=== PATIENT | female | born 1985 | race Caucasian/White ===

== ENCOUNTER 2017-06-15 15:48 | Emergency (ER) | payer BC, SELFPAY ==
[2017-06-15 17:20] VITALS: BP 128/80; PULSE 85; RESP 20; TEMP 36.8; O2SAT 100; BMI 24.1
[2017-06-15 17:31] LABS: UTC Strep Screen (Rapid) Negative (Negative)
--- NOTE | 2017-06-15 17:36 | HMH.EDUTC ---
[facility] – [place] Disposition Clinical Impression: Bilateral otitis media Qualifiers: Otitis media type: suppurative Chronicity: acute Recurrence: not specified as recurrent Spontaneous tympanic membrane rupture: without spontaneous rupture Qualified Code(s): H66.003 - Acute suppurative otitis media without spontaneous rupture of ear drum, bilateral Disposition: Home, Self-Care Condition on Discharge: Good Instructions: DI for Otitis Media (Middle Ear Infection)-Child Prescriptions: Amoxicillin/Potassium Clav [Augmentin 875-125 Tablet] 1 tab PO Q12H #20 tab Referrals: Maximino Camp MD [Primary Care Provider] - Time of Disposition: 17:42 Medical Decision Making - Medical Records Medical records reviewed: Yes: I reviewed the patient's medical records. Vital Signs: 06/15/17 17:20 Temperature 98.2 F Temperature Source Temporal Artery Scan Pulse Rate [Right Brachial] 85 Respiratory Rate 20 Blood Pressure [Right Arm] 128/80 Blood Pressure Mean [Right Arm] 96 Blood Pressure Source [Right Arm] Automatic Cuff Blood Pressure Position [Right Arm] Sitting 02 Sat by Pulse Oximetry 100 Oxygen Delivery Method Room Air - Lab Data Lab results reviewed: Yes: I reviewed the patient's lab results. Lab Results 06/15/17 17:26: Strep Scn Rapid Clinic Negative Orders (Tests/Meds): ORDERS Category Date Time Status Strep Screen Confirmation Stat Micro 06/15/17 17:26 Received - Ulisses Inquiry Pt receiving controlled substance: No [facility] [place] HPI - General Stated complaint: Sore throat, congestion, coughing Time Seen by Provider: 06/15/17 17:30 Mode of Arrival: Ambulatory Source of Information: Patient Limitations: No Limitations Description of Symptoms (Recalled from Triage Doc. by RN): C/O SORE THROAT X2 DAYS HEENT Symptoms (Recalled from RN notes): Yes (SORE THROAT) Resp Symptoms (Recalled from RN notes): No Skin Symptoms (Recalled from RN notes): No MS Symptoms (Recalled from RN notes): No Functional Status (Recalled from RN notes): N/A - History of Present Illness Provider Complaint: Sore throat X 2 days. No fever. Some ear pain and sinus congestion. No vomiting or diarrhea. Onset (ago): day(s) (2) Location: head Associated symptoms: denies other symptoms - Related Data Previous Rx's Medication Instructions Recorded Amoxicillin/Potassium Clav 1 tab PO Q12H #20 tab 06/15/17 [Augmentin 875-125 Tablet] Allergies Allergy/AdvReac Type Severity Reaction Status Date / Time INGREDIENT: NO KNOWN - NO Allergy Unknown Uncoded 04/23/17 14:50 KNOWN DRUG ALLERGY - Worker's Comp Is this a Worker's Comp case?: No [facility] History I have reviewed the patient's past medical history: Yes Medical History: Denies:: Cancer, Diabetes Mellitus Type 1, Diabetes Mellitus Type 2, MRSA Amputation: No Fractures: No - *Social History Smoking Status: Never smoker Alcohol Intake: never - Psychiatric History Expresses thoughts of harming self/others: None Suicide Plan Description: No Plan ROS Obtained: Yes All systems reviewed & no additional complaints - ENT Ears, Nose, Mouth, and Throat: Reports otalgia, Reports nasal congestion, Reports sore throat Physical Exam - General General appearance: alert, in no apparent distress - Head Head exam: atraumatic, normocephalic, normal inspection - Eye Eye exam: Present: normal appearance, PERRL, EOMI - ENT ENT exam: Present: normal exam, normal oropharynx, mucous membranes moist, normal external ear exam - Expanded ENT Exam TM/Canal exam: Bilateral TM: erythema, bulging - Neck Neck exam: Present: normal inspection, full ROM, trachea midline. Absent: meningismus, lymphadenopathy - Chest Chest inspection: Present: normal inspection, symmetric chest wall rise. Absent: tenderness - Respiratory Respiratory exam: Present: normal lung sounds bilaterally. Absent: respiratory distress - Cardiovascular Cardiovascular exam: Present: re
--- NOTE | 2017-06-15 17:40 | ED_ITS ---
[facility] [place] Clinical Impression: Bilateral otitis media Qualifiers: Otitis media type: suppurative Chronicity: acute Recurrence: not specified as recurrent Spontaneous tympanic membrane rupture: without spontaneous rupture Qualified Code(s): H66.003 - Acute suppurative otitis media without spontaneous rupture of ear drum, bilateral Disposition: Home, Self-Care Condition on Discharge: Good Instructions: DI for Otitis Media (Middle Ear Infection)-Child Prescriptions: Amoxicillin/Potassium Clav [Augmentin 875-125 Tablet] 1 tab PO Q12H #20 tab Referrals: Maximino Camp MD [Primary Care Provider] - Time of Disposition: 17:42 Medical Decision Making - Medical Records Medical records reviewed: Yes: I reviewed the patient's medical records. Vital Signs: 06/15/17 17:20 Temperature 98.2 F Temperature Source Temporal Artery Scan Pulse Rate [Right Brachial] 85 Respiratory Rate 20 Blood Pressure [Right Arm] 128/80 Blood Pressure Mean [Right Arm] 96 Blood Pressure Source [Right Arm] Automatic Cuff Blood Pressure Position [Right Arm] Sitting 02 Sat by Pulse Oximetry 100 Oxygen Delivery Method Room Air - Lab Data Lab results reviewed: Yes: I reviewed the patient's lab results. Lab Results 06/15/17 17:26: Strep Scn Rapid Clinic Negative Orders (Tests/Meds): ORDERS Category Date Time Status Strep Screen Confirmation Stat Micro 06/15/17 17:26 Received - Ulisses Inquiry Pt receiving controlled substance: No [facility] [place] - General Stated complaint: Sore throat, congestion, coughing Time Seen by Provider: 06/15/17 17:30 Mode of Arrival: Ambulatory Source of Information: Patient Limitations: No Limitations Description of Symptoms (Recalled from Triage Doc. by RN): C/O SORE THROAT X2 DAYS HEENT Symptoms (Recalled from RN notes): Yes (SORE THROAT) Resp Symptoms (Recalled from RN notes): No Skin Symptoms (Recalled from RN notes): No MS Symptoms (Recalled from RN notes): No Functional Status (Recalled from RN notes): N/A - History of Present Illness Provider Complaint: Sore throat X 2 days. No fever. Some ear pain and sinus congestion. No vomiting or diarrhea. Onset (ago): day(s) (2) Location: head Associated symptoms: denies other symptoms - Related Data Previous Rx's Medication Instructions Recorded Amoxicillin/Potassium Clav 1 tab PO Q12H #20 tab 06/15/17 [Augmentin 875-125 Tablet] Allergies Allergy/AdvReac Type Severity Reaction Status Date / Time INGREDIENT: NO KNOWN - NO Allergy Unknown Uncoded 04/23/17 14:50 KNOWN DRUG ALLERGY - Worker's Comp Is this a Worker's Comp case?: No [facility] History I have reviewed the patient's past medical history: Yes Medical History: Denies:: Cancer, Diabetes Mellitus Type 1, Diabetes Mellitus Type 2, MRSA Amputation: No Fractures: No - *Social History Smoking Status: Never smoker Alcohol Intake: never - Psychiatric History Expresses thoughts of harming self/others: None Suicide Plan Description: No Plan ROS Obtained: Yes All systems reviewed & no additional complaints - ENT Ears, Nose, Mouth, and Throat: Reports otalgia, Reports nasal congestion, Reports sore throat Physical Exam - General General appearance: alert, in no apparent distre
[2017-06-15 17:59] VITALS: BP 124/82; PULSE 79; RESP 18; TEMP 36.9; O2SAT 98
== END 2017-06-15 18:00 | disposition home or self-care (01) ==
PROVIDERS: Emergency Provider Physician Assistant; PCP Family Medicine
DX: H66.003 Acute suppurative otitis media without spontaneous rupture of ear drum, bilateral (principal)
CPT/HCPCS: 87880; 99202

== ENCOUNTER → 2018-02-03 20:12 | Outpatient (REF) | payer BC, SELFPAY | LOC: LAB 20:12 | PROVIDERS: Visit Provider Nurse Practitioner Family | DX: J02.9 Acute pharyngitis, unspecified (principal) ==

== ENCOUNTER → 2018-11-10 13:54 | Outpatient (CLI) | payer BC, SELFPAY | PROVIDERS: PCP Emergency Medicine; Visit Provider Emergency Medicine | DX: R00.2 Palpitations (principal) | CPT/HCPCS: 93225; 93226 ==

== ENCOUNTER → 2019-02-06 10:51 | Outpatient (CLI) | payer BC, SELFPAY ==
[2019-02-06 14:17] LABS: Basophils % 0.5 % (0.1-2.0); Eosinophils % 0.6 % (0.1-12.0); Hematocrit 39.8 % (37.0-47.0); Lymphocytes # 1.6 K/mm3 (0.7-4.5); Lymphocytes % 28.6 % (10-50); Mean Corpuscular HGB Conc 32.7 g/dL (31.8-35.4); Mean Corpuscular Hemoglobin 28.5 pg (27.0-31.2); Mean Corpuscular Volume 87.1 fl (81-99); Monocytes # 0.3 K/mm3 (0.1-1.0); Monocytes % 5.7 % (1.7-9.3); Neutrophils # 3.6 K/mm3 (1.8-7.8); Neutrophils % 64.6 % (37.0-80.0); Platelet Count 208 K/mm3 (142-424); Red Blood Count 4.57 M/mm3 (4.20-5.40); Red Cell Distribution Width 12.5 % (11.5-17.5); White Blood Count 5.5 K/mm3 (4.8-10.8)
[2019-02-07 08:13] LABS: HIV Screen 4th Generation wRfx Non Reactive (Non Reactive); Rapid Plasma Reagin Ab Titer Non Reactive (NonRea<1:1)
[2019-02-07 12:32] LABS: Hepatitis B Surface Antigen Negative (Negative); Hepatitis C Antibody <0.1 s/co ratio (0.0-0.9); Rubella Antibodies, IgG 1.17 index (Immune >0.99)
== END ==
PROVIDERS: Visit Provider Nurse Practitioner Obstetrics & Gynecology
DX: Z34.90 Encounter for supervision of normal pregnancy, unspecified, unspecified trimester (principal)
CPT/HCPCS: 36415; 85025; 86592; 86703; 86762; 86850; 87340; 87380; G0432

== ENCOUNTER → 2019-02-13 14:51 | Outpatient (CLI) | payer BC, SELFPAY ==
--- NOTE | 2019-02-13 14:52 | US_ITS ---
PROCEDURE: US OB TRANSVAGINAL CLINICAL INDICATION: US OB TV for DATES The the the COMPARISON: PTV US PELVIS-TRANSVAGINAL ONLY from 10/24/2016 FINDINGS: There is an intrauterine gestational sac present with a yolk sac noted. A pole is demonstrated with a crown-rump length of 0.58 cm correlating to gestational age of 6 weeks and 3 days. heart tones are present within FHR 117 beats per minute. The left adnexa is unremarkable. There is a 1 cm corpus luteum cyst on the right IMPRESSION: Live intrauterine gestation with an average ultrasound age of 6 weeks and 2 days. Estimated due date by Ultrasound is 10/07/2019 Dictated by: Curtis Subramanian MD 02/13/2019 17:55 Electronically signed by Curtis Subramanian MD in [place] 02/13/2019 17:55
== END ==
PROVIDERS: PCP Nurse Practitioner Obstetrics & Gynecology; Visit Provider Nurse Practitioner Obstetrics & Gynecology
DX: O26.841 Uterine size-date discrepancy, first trimester (principal)
CPT/HCPCS: 76817

== ENCOUNTER → 2019-05-22 14:38 | Outpatient (CLI) | payer BC, SELFPAY ==
--- NOTE | 2019-05-22 14:38 | US_ITS ---
PROCEDURE: US OB /MATERNAL DETAIL CLINICAL INDICATION: US OB Complete COMPARISON: US OB TRANSVAGINAL from 02/13/2019 FINDINGS: Single viable intrauterine gestation. Cephalic position. Placenta: Posteriorplacenta grade 1. The placenta is low lying. There is average amount fluid. The cervix appears satisfactory. Closed and measuring 3.5 cm in length. Complete survey performed and was unremarkable on the submitted images as in PACS. No discrete anomalies identified on survey imaging by technologist. Active fetus. Three-vessel cord with satisfactory umbilical cord insertion. 4- chamber heart noted. Survey of brain & ventricles Unremarkable. Face and neck survey unremarkable. Diaphragm and chest views unremarkable. Abdomen: Both kidneys noted and unremarkable. Stomach noted and satisfactory. Spine: Survey of the spine satisfactory with no anomalies identified nor imaged. Both arms and legs noted. Amniotic Fluid: Adequate. Maternal adnexa: No significant findings. Measurements: Average ultrasound age 21weeks. Gestational Age 21weeks Estimated due date by ultrasound age 0510/02/2019. Estimated weight 416g BPD = 20weeks 3days OFD = 21 weeks 2 days HC = 20weeks 2days AC = 21weeks 3days FL = 21weeks 6days Growth Percentile= 93% Heart Rate = 146bpm Cerebellum = 20weeks 2days Humerus = 21weeks HC/AC is 1.09 CI is 0.75 FL/BPD is 0.77 FL/AC is 0.23 IMPRESSION: There is a single live fetus present which is in cephalic presentation with an average ultrasound age of 21 weeks. All parameters correlate with no obvious anomalies. Please see above for detail. The placenta is posterior and low lying. Dictated by: Curtis Subramanian MD 05/22/2019 17:46 Electronically signed by Curtis Subramanian MD in [place] 05/22/2019 17:46
== END ==
PROVIDERS: PCP Family Medicine; Visit Provider Nurse Practitioner Obstetrics & Gynecology
DX: Z36.0 Encounter for antenatal screening for chromosomal anomalies (principal)
CPT/HCPCS: 76811

== ENCOUNTER 2019-06-10 06:14 | Outpatient (CLI) | payer BC, SELFPAY ==
[2019-06-10 06:26] VITALS: BMI 31.1
[2019-06-10 06:32] VITALS: BP 118/69; PULSE 78; RESP 16; TEMP 36.3; O2SAT 98; BMI 31.1
[2019-06-10 07:08] LABS: Appearance,Urine CLEAR (Clear); Bilirubin,Urine Negative (Negative); Blood, Urine Negative (Negative); Color,Urine YELLOW (Yellow); Glucose,Urine (UA) Negative (Negative); Ketones,Urine Negative (Negative); Leukocyte Esterase,Urine Negative (Negative); Microscopic, Urine URINE MICROSCOPIC (MICROSCOPIC); Nitrate,Urine Negative (Negative); Protein,Urine Negative (Negative); Urobilinogen,Urine 0.2 EU/dl (0.2)
[2019-06-10 07:21] LABS: Amphetamine/Metha Screen,Urine Negative ng/mL (<1000); Barbiturates Screen,Urine Negative ng/mL (<200); Benzodiazepines Screen,Urine Negative ng/mL (<200); Cannabinoid Screen,Urine Negative ng/mL (<50); Cocaine Screen,Urine Negative ng/mL (<300); Methadone Screen,Urine Negative ng/mL (<300); Opiate Screen,Urine Negative ng/mL (<300); Phencyclidine Screen,Urine Negative ng/mL (<25)
[2019-06-10 07:33] LABS: Bacteria,Urine Trace /lpf
--- NOTE | 2019-06-10 09:22 | P.PN_ITS ---
Internal Medicine - PN: Subj *Date: 06/10/19 *Time: 09:22 Interval history: She has a 3-day history of nausea vomiting and dehydration. She began having some lower abdominal pain as well as back pain. She is 22 weeks . As result of that she came into labor and delivery. Exam Vital signs and Labs for Last 24 Hours: Temp Pulse Resp BP Pulse Ox 97.4 F L 78 16 118/69 98 06/10/19 06:32 06/10/19 06:32 06/10/19 06:32 06/10/19 06:32 06/10/19 06:32 Laboratory Results - last 24 hr 06/10/19 06:40: Urine Color Yellow, Urine Appearance Clear, Urine pH 7.0, Ur Specific Tate 1.010, Urine Protein Negative, Urine Glucose (UA) Negative, Urine Ketones Negative, Urine Blood Negative, Urine Nitrate Negative, Urine Bilirubin Negative, Urine Urobilinogen 0.2, Ur Leukocyte Esterase Negative, Urine RBC None, Urine WBC 3-5, Ur Squamous Epith Cells 5-10, Urine Bacteria Trace 06/10/19 06:40: Urine Opiates Screen Negative, Urine Methadone Screen Negative, Ur Barbituates Screen Negative, Ur Phencyclidine Scrn Negative, Ur Amphetamines Screen Negative, U Benzodiazepines Scrn Negative, Urine Cocaine Screen Negative, U Marijuana (THC) Screen Negative I & O for Last 24 hours: Intake & Output 06/07/19 06/08/19 06/09/19 06/10/19 11:59 11:59 11:59 11:59 Weight 192 lb 15.988 oz - Constitutional no acute distress - *Routine HEENT Exam Head: Present: normocephalic Eye: Present: EOMI, PERRL ENT: Present: mucous membranes moist Assessment and Plan (1) History of labor Current visit: Yes Status: Acute Category: Medical Code(s): Z87.51 - Personal history of pre-term labor (2) Nausea and vomiting Current visit: Yes Status: Acute Category: Medical Code(s): R11.2 - Nausea with vomiting, unspecified (3) Dehydration Current visit: Yes Status: Acute Category: Medical Code(s): E86.0 - Dehydration (4) labor Current visit: Yes Status: Acute Category: Medical Code(s): O60.00 - Pre term labor without delivery, unspecified trimester - Assessment and plan all Dx Assessment and Plan for all problems:: She has had no further episodes of vomiting or diarrhea. Her cramps have now settled. We did give her 1 dose of Brethine and she has received 2 L of fluid. Her cervix is long and closed. The nonstress test is reactive. We will plan to send her home this morning. She will continue to drink plenty of fluids.
== END 2019-06-10 09:30 | disposition home or self-care (01) ==
LOC: OBOUT 06:17 → OB 06:17
PROVIDERS: PCP Family Medicine; Visit Provider Nurse Practitioner Obstetrics & Gynecology
DX: O26.892 Other specified pregnancy related conditions, second trimester (principal); Z3A.23 23 weeks gestation of pregnancy; R25.2 Cramp and spasm; R42 Dizziness and giddiness
CPT/HCPCS: 59025; 80305; 81001; 96365; 96366; 96372; G0463

== ENCOUNTER → 2019-12-22 09:37 | Outpatient (CLI) | payer BC, SELFPAY ==
--- NOTE | 2019-12-22 09:37 | MR_ITS ---
PROCEDURE: MR HEAD/BRAIN WO/W CON CLINICAL INDICATION: possible underlying demyelinating disorder PINS AND NEEDLES FEELING ON LT SIDE OF FACE AND LT HAND. SENSATIONS MOVE TO SPOTS OF LT SIDE OF HEAD. [id number]. FRONTAL HEADACHE. DIZZINESS AND BLURRED VISION. Double inversion recovery images also performed COMPARISON: No exams were available for comparison TECHNIQUE: Routine multiplanar multi echo sequences are performed without and with gadolinium enhancement.16ML PROHANCE GIVEN. LOT: [id number] EXP: APR 2022 NO PRIOR. FINDINGS: No midline shift, mass effect, intracranial hemorrhage, or hydrocephalus is evident. The cerebellopontine angles, cerebellum, and brainstem have an unremarkable appearance. No evidence of acute infarction. The white matter has an unremarkable appearance. No enhancing lesions. No cortical lesions apparent on the DIR images. No mastoid effusion or sinus air-fluid level. IMPRESSION: No acute finding, negative MRI of the brain without and with contrast. Dictated by: Curtis Subramanian MD 12/28/2019 09:38 Curtis Subramanian MD in [place] 12/28/2019 09:38
== END ==
PROVIDERS: PCP Family Medicine; Visit Provider Specialist
DX: R51 Headache (principal); R20.0 Anesthesia of skin; R20.2 Paresthesia of skin; R20.8 Other disturbances of skin sensation; R53.1 Weakness
CPT/HCPCS: 70553; A9576

== ENCOUNTER 2020-02-28 17:38 | Emergency (ER) | payer BC, SELFPAY ==
[2020-02-28 18:13] VITALS: BP 127/85; PULSE 83; RESP 19; TEMP 37; O2SAT 99; BMI 28.0
--- NOTE | 2020-02-28 18:26 | HMH.EDUTC ---
[facility] – [place] Disposition Clinical Impression: Common cold virus, COVID-19 Disposition: Home, Self-Care Condition on Discharge: Good Instructions: Preventing the Spread of Coronavirus Discharge Instructions, DI for Common Cold Additional Instructions: No sign of a bacterial infection. Likely viral. Viruses can take 7-14 days to run their course. Nasal saline and bulb syringe or nose Gale to remove nasal drainage to help with nasal congestion. Hard to eat, drink, sleep with nasal congestion so important to keep this cleaned out. Monitor temp. Tylenol or Motrin as needed for pain or fever Encourage fluids, water, Gatorade, Powerade, Pedialyte if infant/toddler/child Warm salt water gargles Warm fluids Sore throat lozenges Sleep elevated Humidifier/vaporizer Your covid swab was sent, call back in 4-5 hours for results. self isolate until results are neg These results are typically sent to the primary care. Be sure you follow-up in 2-3 days if no improvement so we can review the results and treat if necessary Follow-up immediately for new or worsening symptoms or no noticeable improvement over the next 48-72 hours. Referrals: Adalberto Ennis MD [Primary Care Provider] - Time of Disposition: 18:30 Medical Decision Making - Ulisses Inquiry Pt receiving controlled substance: No Vital Signs: 02/28/20 18:13 Temperature 98.6 F Temperature Source Oral Pulse Rate [Right Brachial] 83 Respiratory Rate 19 Blood Pressure [Right Arm] 127/85 Blood Pressure Mean [Right Arm] 99 Blood Pressure Source [Right Arm] Automatic Cuff Blood Pressure Position [Right Arm] Sitting 02 Sat by Pulse Oximetry 99 Oxygen Delivery Method Room Air Orders (Tests/Meds): ORDERS Category Date Time Status Covid-19 Nasal PCR ([facility]) Routine Lab 02/28/20 18:10 Received [facility] [place] HPI - General Chief complaint: [facility] Stated complaint: cough runny nose head congestion Time Seen by Provider: 02/28/20 18:26 Mode of Arrival: Ambulatory Source of Information: Patient Limitations: No Limitations Description of Symptoms (Recalled from Triage Doc. by RN): PATIENT C/O COUGH AND RUNNY NOSE X 2 DAYS HEENT Symptoms (Recalled from RN notes): Yes Resp Symptoms (Recalled from RN notes): Yes Skin Symptoms (Recalled from RN notes): No MS Symptoms (Recalled from RN notes): No Functional Status (Recalled from RN notes): WNL - History of Present Illness Provider Complaint: 34 yr old female presents for runny nose and headache for 2 days and would like covid testing. 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 I have reviewed the patient's past medical history: Yes Medical History: Denies:: Cancer, Diabetes Mellitus Type 1, Diabetes Mellitus Type 2, Hypertension, MRSA Other Surgeries: Yes: No Previous Surgery, Cholecystectomy, Amputation: No Fractures: No Comment: wisdom teeth - Social History Smoking Status: Former smoker Alcohol Intake: never Substance Use Type: denies use Occupational Status: other Housing: house Household Members: spouse, children Family Hx:: Cancer, Diabetes, Coronary Artery Disease, Thyroid Disorder ROS Obtained: Yes Systems reviewed as appropriate & no additional complaints - Constitutional Constitutional: Reports system reviewed and no additional complaints, except as docu, Denies fever(s) - Eyes Eyes: Reports system reviewed and no additional complaints, except as docu, Denies c
[2020-02-28 18:33] VITALS: BP 127/85; PULSE 83; RESP 19; TEMP 37; O2SAT 99
== END 2020-02-28 18:35 | disposition home or self-care (01) ==
PROVIDERS: Emergency Provider Nurse Practitioner Family; PCP Family Medicine
DX: Z20.828 Contact with and (suspected) exposure to other viral communicable diseases (principal); R05 Cough; Z87.891 Personal history of nicotine dependence
CPT/HCPCS: 99201; U0003

== ENCOUNTER → 2020-08-26 11:48 | Outpatient (CLI) | payer BC, SELFPAY ==
--- NOTE | 2020-08-26 11:52 | CT_ITS ---
PROCEDURE: CT ABDOMEN PELVIS W CON CLINICAL INDICATION: RT LOWER QUAD ABD PAIN Right lower quadrant abdominal pain and cramping COMPARISON: No exams were available for comparison TECHNIQUE: IV Contrast: 75ML Isovue 370 Oral Contrast None Axial images obtained with sagittal and coronal reformats. All CT scans at the facility use one or more dose reduction, viz: automated exposure control, ma/kV adjustment per patient size (including targeted exams where dose is matched to indication, i.e. head), or iterative reconstruction technique. FINDINGS: LOWER THORAX: 6 mm noncalcified nodule right lower lobe posterior medially. Minimal thickening of the pericardium anteriorly suggesting small effusion. ABDOMEN & PELVIS: There are 3 small areas of decreased attenuation within the liver 4 mm left hepatic lobe series 3, image 15, 4 mm right hepatic lobe posteriorly series 3, image 32, and 4 mm series 3, image 40 right hepatic lobe. These are too small to categorize high. Stability may be confirmed with follow-up. There has been a prior cholecystectomy with biliary ectasia. Borderline splenomegaly at 13 cm. The pancreas and adrenal glands are unremarkable. No renal mass or calculi No intestinal obstruction or free air. The appendix has an unremarkable appearance. There is a mild amount of retained colonic feces. There is colonic diverticulosis but no evidence of diverticulitis. There is an IUD in place which appears to be in satisfactory position. The uterus appears somewhat bulky. There is somewhat unusual enhancement of the right ovary peripherally with no obvious adnexal mass. Small amount fluid is present in the pelvis. An 8 mm node is present in the right perirectal region. No acute bony findings IMPRESSION: 1. No evidence of appendicitis. No renal or ureteral calculi. 2. Mild amount of retained colonic feces with colonic diverticulosis but no evidence of diverticulitis. 3. Unusual mild peripheral enhancement of the right ovary. This is nonspecific. Differential diagnosis would include physiologic, missed torsion or secondary to underlying inflammatory/infectious changes. Dictated by: Curtis Subramanian MD 08/26/2020 13:00 Curtis Subramanian MD in [place] 08/26/2020 13:00
== END ==
PROVIDERS: PCP Family Medicine; Visit Provider Physician Assistant
DX: R10.31 Right lower quadrant pain (principal)
CPT/HCPCS: 74177; Q9967

== ENCOUNTER → 2020-08-31 15:17 | Outpatient (CLI) | payer BC, SELFPAY ==
--- NOTE | 2020-08-31 15:22 | US_ITS ---
PROCEDURE: US TRANSVAGINAL CLINICAL INDICATION: RLQ ABD PAIN COMPARISON: US US OB TRANSVAGINAL from 02/13/2019 FINDINGS: UTERUS: 7cm x 4cmx 4cm with a combined endometrial thickness of 3.4mm LEFT OVARY: [id number] with a volume of 5.3ml. RIGHT OVARY: [id number] with a volume of 6.8ml. There is an IUD in place which appears to be in good position but obscures the endometrial stripe and the posterior aspect of the fundus the uterus. No cul-de-sac fluid is evident. IMPRESSION: IUD in satisfactory position otherwise negative pelvic ultrasound Dictated by: Curtis Subramanian MD 08/31/2020 16:26 Curtis Subramanian MD in [place] 08/31/2020 16:26
== END ==
PROVIDERS: PCP Physician Assistant; Visit Provider Physician Assistant
DX: R10.31 Right lower quadrant pain (principal)
CPT/HCPCS: 76830

== ENCOUNTER 2021-03-10 18:55 | Emergency (ER) | payer BC, SELFPAY ==
[2021-03-10 18:56] VITALS: BP 126/84; PULSE 91; RESP 16; TEMP 36.4; O2SAT 100; BMI 28.1
--- NOTE | 2021-03-10 19:08 | HMH.EDUTC ---
[facility] Disposition Clinical Impression: Strep pharyngitis Disposition: Home, Self-Care Condition on Discharge: Good Instructions: DI for Strep Throat Prescriptions: Amoxicillin [Amoxicillin 875MG Tab] 875 mg PO Q12H #20 tab Transmission Status: Pending to [facility] Fluconazole [Diflucan 150mg tab] 150 mg PO ONCE 1 Days #1 tab Transmission Status: Pending to [facility] Referrals: Adalberto Ennis MD [Primary Care Provider] - Time of Disposition: 19:17 Medical Decision Making - Ulisses Inquiry Pt receiving controlled substance: No Vital Signs: 03/10/21 18:56 Temperature 97.5 F L Temperature Source Oral Pulse Rate [Left] 91 H Respiratory Rate 16 Blood Pressure [Right Arm] 126/84 Blood Pressure Mean [Right Arm] 98 02 Sat by Pulse Oximetry 100 - Lab Data Lab results reviewed: Yes: I reviewed the patient's lab results. [facility] HPI - General Stated complaint: SORE THROAT,ramos RUNNY NOSE Time Seen by Provider: 03/10/21 19:08 Mode of Arrival: Ambulatory Source of Information: Patient Limitations: No Limitations Description of Symptoms (Recalled from Triage Doc. by RN): sore throat, runny nose and cough since this am. HEENT Symptoms (Recalled from RN notes): Yes (sore throat and runny nose) Resp Symptoms (Recalled from RN notes): Yes (cough) Skin Symptoms (Recalled from RN notes): No MS Symptoms (Recalled from RN notes): No Functional Status (Recalled from RN notes): na - History of Present Illness Provider Complaint: Cough, sore throat, runny nose X 2 days. No fever. 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 Onset (ago): day(s) (2) Relieving factors: none Exacerbating factors: none Associated symptoms: denies other symptoms Treatments prior to arrival: none - Related Data Previous Rx's Medication Instructions Recorded Amoxicillin [Amoxicillin 875MG 875 mg PO Q12H #20 tab 03/10/21 Tab] Fluconazole [Diflucan 150mg tab] 150 mg PO ONCE 1 Days #1 tab 03/10/21 Allergies Allergy/AdvReac Type Severity Reaction Status Date / Time No Known Allergies Allergy Verified 03/01/21 16:46 - Worker's Comp Is this a Worker's Comp case?: No [facility] History - Hepatitis A Screen Drug use history?: No High risk sexual behaviors?: No History of sexually transmitted infection?: No Currently employed?: No Childcare worker?: No Do you have indoor plumbing?: Yes Do you have electricity?: Yes Attestation statement:: This patient has been screened for Hepatitis A risk factors. I have reviewed the patient's past medical history: Yes Medical History: Denies:: Cancer, Diabetes Mellitus Type 1, Diabetes Mellitus Type 2, Hypertension, MRSA Other Surgeries: Yes: No Previous Surgery, Cholecystectomy, Amputation: No Fractures: No Comment: wisdom teeth - Social History Smoking Status: Former smoker Alcohol Intake: never Substance Use Type: denies use Occupational Status: other Housing: house Household Members: spouse, children Family Hx:: Cancer, Diabetes, Coronary Artery Disease, Thyroid Disorder ROS Obtained: Yes All systems reviewed & no additional complaints - ENT Ears, Nose, Mouth, and Throat: Reports nasal congestion, Reports sore throat Physical Exam - General General appearance: alert, in no apparent distress - Head Head exam: normocephalic - Eye Eye exam: Present: PERRL - ENT ENT exam: Present: TM's normal bilaterally - Expanded ENT Exam Throat exam: Present: tonsillar erythema, tonsillomegaly, tonsillar exudate - Chest Chest inspection: Present: normal inspection, symmetric chest wall rise - Respiratory Respiratory exam: Present: normal lung sounds bilaterally. Absent: respiratory distress, wheezes - Cardiovascular Cardiovascular exam: Present: regular rate, normal rhythm - Neurological Exam Neurological exam: Present: alert, oriented X3 - Psychiatric Psychiatric exam: Present: normal affect, n
[2021-03-10 19:11] VITALS: BP 126/84; PULSE 91; RESP 19; TEMP 36.4
[2021-03-10 19:11] LABS: UTC Strep Screen (Rapid) Positive (Negative)
== END 2021-03-10 19:23 | disposition home or self-care (01) ==
PROVIDERS: Emergency Provider Physician Assistant; PCP Family Medicine
DX: J02.0 Streptococcal pharyngitis (principal); U07.1 COVID-19
CPT/HCPCS: 87880; 99202; C9803; G0463; U0003; U0005

== ENCOUNTER 2021-03-18 13:33 | Emergency (ER) | payer BC, SELFPAY ==
[2021-03-18 13:45] VITALS: BP 130/89; PULSE 87; RESP 19; TEMP 36.7; O2SAT 99; BMI 28.1
--- NOTE | 2021-03-18 14:20 | PC.NURSE ---
PATIENT SENT TO ER PER Navdeep THOMAS APRN FOR FURTHER EVALUATION. REPORT GIVEN TO Cale THEODORE RN
--- NOTE | 2021-03-18 14:22 | ECG_ITS ---
APPROVED REPORT Exam: Resting ECG HR:68 bpm ECG Measurements Heart Rate 68 AXES ME 126 P 47 QRSd 76 QRS 29 QT 388 T 47 QTc 412 Conclusion Normal sinus rhythm Late r wave progression Abnormal ECG Electronically signed by : Angelito Medeiros MD 03/20/2021 20:21:23
[2021-03-18 14:26] VITALS: BP 143/97; PULSE 74; RESP 14; O2SAT 100; BMI 28.2
--- NOTE | 2021-03-18 14:33 | XR_ITS ---
PROCEDURE INFORMATION: Exam: XR Chest Exam date and time: 03/18/2021 2:33 PM Age: 36 years old Clinical indication: Cough; Additional info: Cough and congestion TECHNIQUE: Imaging protocol: XR of the chest. Views: 1 view. COMPARISON: CT ABDOMEN PELVIS W CON 08/26/2020 12:11 PM FINDINGS: Lungs: Unremarkable. No consolidation. Pleural spaces: Unremarkable. No pleural effusion. No pneumothorax. Heart/Mediastinum: Unremarkable. No cardiomegaly. Bones/joints: Unremarkable. IMPRESSION: No acute findings.
--- NOTE | 2021-03-18 14:36 | HMH.EDGENADL ---
ED Disposition Clinical Impression: Acute effusion of left ear Disposition: Home, Self-Care Condition on Discharge: Good Instructions: DI for Ear Pain-Adult Referrals: Adalberto Ennis MD [Primary Care Provider] - - Critical Care Critical Care Time: No Attestation: On 03/18/21, the high probability of a clinically significant, sudden or life threatening deterioration of the following system(s) required my full and direct attention, intervention and personal management. The time I documented below is in addition to time spent performing reported procedures but includes the following listed in this critical care notation. Medical Decision Making - Medical Records Medical records reviewed: Yes: I reviewed the patient's medical records. - Ulisses Inquiry Pt receiving controlled substance: No Vital Signs: 03/18/21 13:45 03/18/21 14:26 Temperature 98.0 F Temperature Source Oral Pulse Rate [Right Brachial] 87 74 Respiratory Rate 19 14 Blood Pressure [Right Arm] 130/89 143/97 H Blood Pressure Mean [Right Arm] 102 112 Blood Pressure Source [Right Arm] Automatic Cuff Blood Pressure Position [Right Arm] Sitting 02 Sat by Pulse Oximetry 99 100 Oxygen Delivery Method Room Air Room Air - Lab Data Lab Results 03/18/21 14:26: WBC 7.0, RBC 5.14, Hgb 14.5, Hct 44.7, MCV 87.0, MCH 28.2, MCHC 32.4, RDW 12.8, Plt Count 281, MPV 8.5, Neut % (Auto) 61.5, Lymph % (Auto) 31.6, [place] % (Auto) 4.1, Eos % (Auto) 1.2, Baso % (Auto) 1.7, Neut # (Auto) 4.3, Lymph # (Auto) 2.2, [place] # (Auto) 0.3, Eos # (Auto) 0.1, Baso # (Auto) 0.1 03/18/21 14:26: Sodium 140, Potassium 4.3, Chloride 104, Carbon Dioxide 29, Anion Gap 11.3, BUN 16, Creatinine 0.60, Estimated Creat Clear 164, Estimated GFR 112, Est GFR ( Amer) 135, Glucose 95, Calcium 9.0, Total Bilirubin 0.2, AST 28, ALT 12, Alkaline Phosphatase 89, Troponin I < 0.01, Total Protein 7.4, Albumin 4.5, Globulin 2.9, Albumin/Globulin Ratio 1.6 Result diagrams: 03/18/21 14:26 03/18/21 14:26 Orders (Tests/Meds): ORDERS Category Date Time Status XR chest portable Stat Exams 03/18/21 14:33 Taken Troponin I Q3H Lab 03/18/21 17:45 Ordered Troponin I Q3H Lab 03/18/21 20:45 Ordered - Radiology Data #1 Image(s): Chest Image Reviewed: Yes I reviewed the patient's radiology results, Yes I reviewed the patient's radiology image, Yes I have reviewed radiologist's interpretation - ECG Data Tracing #1 I reviewed this ECG and interpreted as documented below: Normal OH interval, normal QTC. Nonspecific ST changes. ECG initial impression date: 03/18/21 ECG initial impression time: 14:22 Normal Sinus Rhythm: Yes - Reevaluation(s) Time: 15:23 Reevaluation #1: On reevaluation patient is feeling better. There is no evidence of elevated troponin. Patient will continue medications as previously described. Needs follow-up with PCP in 48 hours. Strict return precautions. Verbalized understanding. Medical Decision Narrative: 36-year-old female presenting with some left ear pain. She does have evidence of a small effusion. She is afebrile, nontoxic. Patient is low risk for acute coronary syndrome based on heart score. Work-up initiated. General Adult HPI - General Chief complaint: PAIN Stated complaint: left ear ache Time Seen by Provider: 03/18/21 13:50 Mode of Arrival: Ambulatory Limitations: No Limitations Description of Symptoms (Recalled from ER Triage Doc. by RN): pt is having left ear/jaw pain that goes into her neck and down her left arm and a pinch feeling in her left side since yesterday - History of Present Illness HPI narrative: This is a 36-year-old female presented to the emergency department with some left ear pain. The patient states that she was diagnosed with strep throat as well as Covid last week. She has been taking amoxicillin since then. The patient is complaining of some stuffy nose and sore throat. However she states that
[2021-03-18 14:52] LABS: Basophils # 0.1 K/mm3 (0-0.2); Basophils % 1.7 % (0.1-2.0); Eosinophils # 0.1 K/mm3 (0.0-0.4); Eosinophils % 1.2 % (0.1-12.0); Hematocrit 44.7 % (37.0-47.0); Hemoglobin 14.5 g/dL (12.2-16.2); Lymphocytes # 2.2 K/mm3 (0.7-4.5); Lymphocytes % 31.6 % (10-50); Mean Corpuscular HGB Conc 32.4 g/dL (31.8-35.4); Mean Corpuscular Hemoglobin 28.2 pg (27.0-31.2); Mean Platelet Volume 8.5 fl (7.4-10.4); Monocytes # 0.3 K/mm3 (0.1-1.0); Monocytes % 4.1 % (1.7-9.3); Neutrophils # 4.3 K/mm3 (1.8-7.8); Neutrophils % 61.5 % (37.0-80.0); Platelet Count 281 K/mm3 (142-424); Red Blood Count 5.14 M/mm3 (4.20-5.40); Red Cell Distribution Width 12.8 % (11.5-17.5)
[2021-03-18 14:54] LABS: Chloride 104 mmol/L (98-107); Potassium 4.3 mmoL/L (3.5-5.1); Sodium 140 mmol/L (136-145)
[2021-03-18 14:56] LABS: Alanine Aminotransferase 12 U/L (12-78); Aspartate Amino Transferase 28 U/L (14-36); Blood Urea Nitrogen 16 mg/dl (7-17); Creatinine Clearance Estimated 164 mL/min (50-200); Estimated Glomerular Filt Rate 112 ml/min (>60); GFR (African American) 135 ML/MIN (>60)
[2021-03-18 14:57] LABS: Albumin Level 4.5 g/dl (3.5-5.0); Albumin/Globulin Ratio 1.6 (1.1-1.8); Alkaline Phosphatase 89 U/L (38-126); Anion Gap 11.3 mEq/L (5-15); Bilirubin,Total 0.2 mg/dl (0.2-1.3); Carbon Dioxide 29 mmol/L (22.0-30.0); Globulin 2.9 g/dL (1.3-3.2); Glucose 95 mg/dl (74-100); Total Protein,Serum 7.4 g/dl (6.3-8.2)
[2021-03-18 15:10] LABS: Troponin I < 0.01 ng/ml (0.00-0.034)
[2021-03-18 15:36] VITALS: BP 130/89; PULSE 70; RESP 16; TEMP 36.8; O2SAT 99
== END 2021-03-18 15:37 | disposition home or self-care (01) ==
LOC: UTC 13:35 → ER 14:17
PROVIDERS: Emergency Medicine; Emergency Provider Nurse Practitioner Family; PCP Family Medicine
DX: H65.192 Other acute nonsuppurative otitis media, left ear (principal); Z87.891 Personal history of nicotine dependence
CPT/HCPCS: 71045; 80053; 84484; 85025; 93005; 99282

== ENCOUNTER → 2021-05-09 18:11 | Outpatient (CLI) | payer BC, SELFPAY | PROVIDERS: PCP Internal Medicine Adolescent Medicine; Visit Provider Nurse Practitioner | DX: Z20.822 Contact with and (suspected) exposure to COVID-19 (principal) | CPT/HCPCS: C9803; U0003; U0005 ==

== ENCOUNTER 2021-05-11 15:27 | Emergency (ER) | payer BC, SELFPAY ==
[2021-05-11 15:47] VITALS: BP 135/85; PULSE 74; RESP 18; TEMP 36.4; O2SAT 99; BMI 30.3
--- NOTE | 2021-05-11 15:53 | HMH.EDUTC ---
[facility] [place] Disposition Clinical Impression: Strep throat Disposition: Home, Self-Care Condition on Discharge: Good Instructions: DI for Strep Throat, Strep Throat Additional Instructions: Drink plenty of fluids. Take tylenol or ibuprofen for pain or fever. Take the medications as directed. Follow up with your regular doctor. GO TO THE ER FOR ANY WORSENING SYMPTOMS Throw your tooth brush away and get a new one. Prescriptions: Brompheniramine/Pseudoephed/Dm [Bromfed Dm Cough Syrup] 5 ml PO Q6HP PRN #240 ml PRN Reason: Cough Transmission Status: Pending to [facility] Amoxicillin/Potassium Clav [Augmentin 875-125 Tablet] 1 tab PO Q12H 10 Days #20 tab Transmission Status: Pending to [facility] predniSONE [Deltasone 10mg tablet] 10 mg PO BID 3 Days #6 tab Transmission Status: Pending to [facility] Referrals: Adalberto Ennis MD [Primary Care Provider] - Forms: Work/School Release Time of Disposition: 16:03 Medical Decision Making - Medical Records Medical records reviewed: No: I reviewed the patient's medical records. - Ulisses Inquiry Pt receiving controlled substance: No Vital Signs: 05/11/21 15:47 05/11/21 15:54 Temperature 97.6 F 97.6 F Temperature Source Temporal Artery Scan Pulse Rate 74 Pulse Rate [Left] 74 Respiratory Rate 18 18 Blood Pressure 135/85 Blood Pressure [Right Arm] 135/85 Blood Pressure Mean [Right Arm] 101 02 Sat by Pulse Oximetry 99 - Lab Data Lab results reviewed: Yes: I reviewed the patient's lab results. Lab Results 05/11/21 15:43: Strep Scn Rapid Clinic Positive A Orders (Tests/Meds): ORDERS Category Date Time Status Covid-19 Nasal PCR ([facility]) Routine Lab 05/11/21 16:00 Ordered [facility] HPI - General Stated complaint: sore throat,runny nose Time Seen by Provider: 05/11/21 15:53 Mode of Arrival: Ambulatory Source of Information: Patient Limitations: No Limitations Description of Symptoms (Recalled from Triage Doc. by RN): pt c/o a sore throat and nasal drainage. pt tested negative for covid yesterday. x4days. HEENT Symptoms (Recalled from RN notes): Yes (sore throat and nasal drainage) Resp Symptoms (Recalled from RN notes): No Skin Symptoms (Recalled from RN notes): No MS Symptoms (Recalled from RN notes): No Functional Status (Recalled from RN notes): wnl - History of Present Illness Provider Complaint: She c/o sore throat, dry cough, low grade fever and body aches for the past 4 days. - Related Data Previous Rx's Medication Instructions Recorded Amoxicillin [Amoxicillin 875MG 875 mg PO Q12H #20 tab 03/10/21 Tab] Fluconazole [Diflucan 150mg tab] 150 mg PO ONCE 1 Days #1 tab 03/10/21 Amoxicillin/Potassium Clav 1 tab PO Q12H 10 Days #20 tab 05/11/21 [Augmentin 875-125 Tablet] Brompheniramine/Pseudoephed/Dm 5 ml PO Q6HP PRN #240 ml 05/11/21 [Bromfed Dm Cough Syrup] predniSONE [Deltasone 10mg tablet] 10 mg PO BID 3 Days #6 tab 05/11/21 Allergies Allergy/AdvReac Type Severity Reaction Status Date / Time No Known Allergies Allergy Verified 03/01/21 16:46 - Worker's Comp Is this a Worker's Comp case?: No [facility] History - Hepatitis A Screen Drug use history?: No High risk sexual behaviors?: No History of sexually transmitted infection?: No Currently employed?: No Childcare worker?: No Do you have indoor plumbing?: Yes Do you have electricity?: Yes Attestation statement:: This patient has been screened for Hepatitis A risk factors. I have reviewed the patient's past medical history: Yes Medical History: Denies:: Cancer, Diabetes Mellitus Type 1, Diabetes Mellitus Type 2, Hypertension, MRSA Other Surgeries: Yes: No Previous Surgery, Cholecystectomy, Amputation: No Fractures: No Comment: wisdom teeth - Social History Smoking Status: Former smoker Alcohol Intake: never Substance Use Type: denies use Occupational Status: other Housing: house Household Mem
[2021-05-11 15:54] VITALS: BP 135/85; PULSE 74; RESP 18; TEMP 36.4
[2021-05-11 15:54] LABS: UTC Strep Screen (Rapid) Positive (Negative)
== END 2021-05-11 16:07 | disposition home or self-care (01) ==
PROVIDERS: Emergency Provider Nurse Practitioner Family; PCP Family Medicine
DX: J02.0 Streptococcal pharyngitis (principal); Z20.822 Contact with and (suspected) exposure to COVID-19; Z87.891 Personal history of nicotine dependence
CPT/HCPCS: 87880; 99203; C9803; G0463; U0003; U0005

== ENCOUNTER 2021-05-28 10:00 | Emergency (ER) | payer BC, SELFPAY ==
[2021-05-28 11:06] VITALS: BP 133/75; PULSE 73; RESP 16; TEMP 36.8; O2SAT 98; BMI 29.0
--- NOTE | 2021-05-28 11:58 | HMH.EDUTC ---
[facility] [place] Disposition Clinical Impression: Viral syndrome Disposition: Home, Self-Care Condition on Discharge: Good Instructions: DI for COVID-19 (Suspected or Confirmed ), Preventing the Spread of Coronavirus Discharge Instructions Additional Instructions: *Monitor Temp, Over the counter Motrin or Tylenol as directed/as needed Tylenol every 4 hours and Motrin every 6 hours (as long as your family doctor has told you that you can take it) for fever or pain. and straight to ER if unable to lower temp less than 101.0 after medication given *Warm salt water gargles may help to soothe the throat *Throat Lozenges *Warm fluids like tea with honey may help to soothe the throat *Sleep elevated *Humidifier/Vaporizer Your throat swab was sent for culture. Those results are typically sent to your primary care. Be sure to follow up in 2-3 days with your family doctor/primary care physician if no improvement so they can review those result and treat if necessary. If you don?t have a primary care doctor, I recommend you get one but in the mean time, you will have to return to a walk in clinic Follow up IMMEDIATELY for new or worsening symptoms or no Noticeable improvement over the next 48-72 hours. 911 for difficulty breathing or swallowing You were tested for today for COVID19 your test result should be back in the next 24-48 hours, you may check your results on the [facility] My Health Portal if you have trouble logging on you may call [employer] support for assistance You was given a handout with instructions for Self Quarantine and Self isolation for while you wait on test results and what to do if they are positive If you are positive the Health Dept will be contacting you also Make sure to take your Vitamins Vit. C Vit D and Zinc if you can take them Referrals: Adalberto Ennis MD [Primary Care Provider] - As needed Forms: Work/School Release Medical Decision Making - Ulisses Inquiry Pt receiving controlled substance: No Ulisses was queried for this patient: No Vital Signs: 05/28/21 11:06 Temperature 98.2 F Temperature Source Oral Pulse Rate [Right] 73 Respiratory Rate 16 Blood Pressure [Right Arm] 133/75 Blood Pressure Mean [Right Arm] 94 Blood Pressure Source [Right Arm] Automatic Cuff Blood Pressure Position [Right Arm] Sitting 02 Sat by Pulse Oximetry 98 Oxygen Delivery Method Room Air - Lab Data Lab results reviewed: Yes: I reviewed the patient's lab results. Lab Results 05/28/21 11:07: Group A Strep Rapid Negative Orders (Tests/Meds): ORDERS Category Date Time Status Covid-19 Nasal PCR ([facility]) Routine Lab 05/28/21 11:10 Received Strep Screen Confirmation Stat Micro 05/28/21 11:07 Received [facility] UTC HPI - General Stated complaint: sore throat, cough, congestion, h/a Time Seen by Provider: 05/28/21 11:58 Mode of Arrival: Ambulatory Source of Information: Patient Limitations: No Limitations Description of Symptoms (Recalled from Triage Doc. 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
[2021-05-28 12:34] LABS: Strep Scrn Group A (Rapid) Negative (Negative)
[2021-05-28 12:53] VITALS: BP 133/75; PULSE 73; RESP 16; TEMP 36.8
== END 2021-05-28 12:54 | disposition home or self-care (01) ==
PROVIDERS: Emergency Provider Nurse Practitioner; PCP Family Medicine
DX: J02.9 Acute pharyngitis, unspecified (principal); B34.9 Viral infection, unspecified; Z87.891 Personal history of nicotine dependence
CPT/HCPCS: 87430; 99203; C9803; G0463; U0003; U0005

== ENCOUNTER → 2021-05-30 17:53 | Outpatient (CLI) | payer BC, SELFPAY | PROVIDERS: Visit Provider Nurse Practitioner | DX: Z20.822 Contact with and (suspected) exposure to COVID-19 (principal) | CPT/HCPCS: C9803; U0003; U0005 ==

== ENCOUNTER 2021-09-14 16:39 | Emergency (ER) | payer BC, SELFPAY ==
[2021-09-14 18:06] LABS: UTC Influenza A Antigen Negative (Negative); UTC Influenza B Antigen Negative (Negative)
[2021-09-14 18:07] VITALS: BP 127/77; PULSE 59; RESP 18; TEMP 36.8; O2SAT 99; BMI 29.0
--- NOTE | 2021-09-14 18:15 | HMH.EDUTC ---
[facility] [place] Clinical Impression: Exposure to COVID-19 virus, Strep pharyngitis Disposition: Home, Self-Care Condition on Discharge: Good Instructions: DI for Strep Throat, COVID-19: Protecting Yourself When You're at High Risk Additional Instructions: covid swab was sent to lab, call tomorrow for results. self isolate until test results are known to be negative Start antibiotics today be sure to take it as ordered with the full length of time although you should start feeling better in 24-48 hours. Change toothbrush and toothpaste 24-48 hours after starting antibiotics Tylenol or Motrin as needed for fever or pain Encourage fluids, water, Gatorade, Powerade, try cold fluids, popsicles, ice cream will make it feel better You are contagious for 24 hours. Avoid kissing anyone, no eating or drinking after anyone. You are contagious. Follow-up the ER for new or worsening symptoms or no noticeable improvement over the next 24-48 hours. Follow-up with PCP this week. Prescriptions: Azithromycin [Zithromax 250mg tab] 250 mg PO DIRECTED #6 tab Transmission Status: Pending to [id number] Referrals: Angelito Medeiros MD [Primary Care Provider] - Time of Disposition: 18:35 Medical Decision Making - Ulisses Inquiry Pt receiving controlled substance: No Vital Signs: 09/14/21 18:07 Temperature 98.2 F Temperature Source Oral Pulse Rate [Radial] 59 L Respiratory Rate 18 Blood Pressure [Right Arm] 127/77 Blood Pressure Mean [Right Arm] 93 02 Sat by Pulse Oximetry 99 - Lab Data Lab Results 09/14/21 17:59: Group A Strep Rapid Negative 09/14/21 17:59: Influenza Type A Ag Negative, Influenza Type B Ag Negative Orders (Tests/Meds): ORDERS Category Date Time Status Covid-19 Nasal PCR ([facility]) Routine Lab 09/14/21 17:55 Received Strep Screen Confirmation Stat Micro 09/14/21 17:59 Received [facility] HPI - General Chief complaint: [facility] Stated complaint: cough and sore throat Time Seen by Provider: 09/14/21 18:15 Mode of Arrival: Ambulatory Source of Information: Patient Limitations: No Limitations Description of Symptoms (Recalled from Triage Doc. by RN): pt c/o sore throat, cough, headache, no fever. symtoms began yesterday HEENT Symptoms (Recalled from RN notes): Yes Resp Symptoms (Recalled from RN notes): Yes Skin Symptoms (Recalled from RN notes): No MS Symptoms (Recalled from RN notes): No Functional Status (Recalled from RN notes): wnl - History of Present Illness Provider Complaint: 36 yr old female presents for c/o sore throat, cough, headache, no fever. symtoms began yesterday, exposed to covid - Related Data Previous Rx's Medication Instructions Recorded Amoxicillin [Amoxicillin 875MG 875 mg PO Q12H #20 tab 03/10/21 Tab] Fluconazole [Diflucan 150mg tab] 150 mg PO ONCE 1 Days #1 tab 03/10/21 Amoxicillin/Potassium Clav 1 tab PO Q12H 10 Days #20 tab 05/11/21 [Augmentin 875-125 Tablet] Brompheniramine/Pseudoephed/Dm 5 ml PO Q6HP PRN #240 ml 05/11/21 [Bromfed Dm Cough Syrup] predniSONE [Deltasone 10mg tablet] 10 mg PO BID 3 Days #6 tab 05/11/21 Azithromycin [Zithromax 250mg 250 mg PO DIRECTED #6 tab 09/14/21 tab] Allergies Allergy/AdvReac Type Severity Reaction Status Date / Time No Known Allergies Allergy Verified 09/14/21 18:10 - Worker's Comp Is this a Worker's Comp case?: No [facility] History - Hepatitis A Screen Attestation statement:: This patient has been screened for Hepatitis A risk factors. I have reviewed the patient's past medical history: Yes Medical History: Denies:: Cancer, Diabetes Mellitus Type 1, Diabetes Mellitus Type 2, Hypertension, MRSA Other Surgeries: Yes: No Previous Surgery, Cholecystectomy, Amputation: No Fractures: No Comment: wisdom teeth - Social History Smoking Status: Former smoker Alcohol Intake: never Substance Use Type: denies use Occupational Status: other Housing: house
[2021-09-14 18:22] LABS: Strep Scrn Group A (Rapid) Negative (Negative)
[2021-09-14 18:39] VITALS: BP 127/77; PULSE 60; RESP 18; TEMP 36.8
== END 2021-09-14 18:42 | disposition home or self-care (01) ==
PROVIDERS: Emergency Provider Nurse Practitioner Family; PCP Internal Medicine Adolescent Medicine
DX: Z20.822 Contact with and (suspected) exposure to COVID-19 (principal); J02.9 Acute pharyngitis, unspecified; R05.9 Cough, unspecified
CPT/HCPCS: 87430; 87804; 99212; C9803; G0463; U0003; U0005

== ENCOUNTER 2021-09-17 09:23 | Emergency (ER) | payer BC, SELFPAY ==
[2021-09-17 09:30] VITALS: BP 125/84; PULSE 102; RESP 22; TEMP 36.8; O2SAT 97; BMI 29.1
[2021-09-17 09:41] LABS: Adenovirus,PCR Not Detected (NotDetected)
[2021-09-17 09:42] LABS: Bordetella Pertussis Not Detected (NotDetected); Chlamydophila Pneumoniae, PCR Not Detected (NotDetected); Coronavirus 229E Not Detected (NotDetected); Coronavirus NL63 Not Detected (NotDetected); Coronavirus OC43 Not Detected (NotDetected); Coronovirus HKU1,PCR Not Detected (NotDetected); Human Metapneumovirus Not Detected (NotDetected); Influenza A, PCR Not Detected (NotDetected); Influenza AH1, 2009 Not Detected (NotDetected); Influenza AH1, PCR Not Detected (NotDetected); Influenza AH3,PCR Not Detected (NotDetected); Influenza B, PCR Not Detected (NotDetected); Mycoplasma Pneumoniae, PCR Not Detected (NotDetected); Parainfluenza 1, PCR Not Detected (NotDetected); Parainfluenza 2, PCR Not Detected (NotDetected); Parainfluenza 3, PCR Not Detected (NotDetected); Parainfluenza 4, PCR Not Detected (NotDetected); Respiratory Syncytial Virus Not Detected (NotDetected); Rhinovirus/Enterovirus Not Detected (NotDetected)
[2021-09-17 09:48] LABS: UTC Influenza A Antigen Negative (Negative)
[2021-09-17 09:49] LABS: UTC Influenza B Antigen Negative (Negative)
--- NOTE | 2021-09-17 10:07 | HMH.EDUTC ---
[facility] [place] Disposition Clinical Impression: Upper respiratory infection, viral, Strep pharyngitis Disposition: Home, Self-Care Condition on Discharge: Good Instructions: DI for COVID-19 (Suspected or Confirmed ) Additional Instructions: covid swab was sent to lab, call tomorrow for results. self isolate until test results are known to be negative No sign of a bacterial infection. Likely viral. Viruses can take 7-14 days to run their course. Nasal saline and bulb syringe or nose Gale to remove nasal drainage to help with nasal congestion. Hard to eat, drink, sleep with nasal congestion so important to keep this cleaned out. Monitor temp. Tylenol or Motrin as needed for pain or fever Encourage fluids, water, Gatorade, Powerade, Pedialyte if /toddler/child Warm salt water gargles Warm fluids Sore throat lozenges Sleep elevated Humidifier/vaporizer Follow-up immediately for new or worsening symptoms or no noticeable improvement over the next 48-72 hours. Prescriptions: Benzonatate [Benzonatate 100mg cap] 100 mg PO BID PRN 7 Days #14 cap PRN Reason: Cough Transmission Status: Pending to [id number] Referrals: Angelito Medeiros MD [Primary Care Provider] - Time of Disposition: 10:15 Medical Decision Making - Ulisses Inquiry Pt receiving controlled substance: No Vital Signs: 09/17/21 09:30 Temperature 98.2 F Temperature Source Oral Pulse Rate [Right Brachial] 102 H Respiratory Rate 22 Blood Pressure [Right Arm] 125/84 Blood Pressure Mean [Right Arm] 97 Blood Pressure Source [Right Arm] Automatic Cuff Blood Pressure Position [Right Arm] Sitting 02 Sat by Pulse Oximetry 97 Oxygen Delivery Method Room Air - Lab Data Lab Results 09/17/21 09:39: Influenza Type A Ag Negative, Influenza Type B Ag Negative Orders (Tests/Meds): ORDERS Category Date Time Status Full Resp Panel w/COVID ([facility]) Routine Lab 09/17/21 09:30 Received [facility] HPI - General Chief complaint: Urgent Treatment Center Stated complaint: cough,runny nose,ear pain Time Seen by Provider: 09/17/21 10:08 Mode of Arrival: Ambulatory Source of Information: Patient Limitations: No Limitations Description of Symptoms (Recalled from Triage Doc. by RN): PATIENT C/O COUGH, RUNNY NOSE, FEVER, RIGHT EAR PAIN AND BODY ACHES SINCE SATURDAY. IS CURRENTLY ON AZITHROMYCIN FOR STREP. REPORTS A POSITIVE AT HOME COVID TEST HEENT Symptoms (Recalled from RN notes): Yes Resp Symptoms (Recalled from RN notes): Yes Skin Symptoms (Recalled from RN notes): No MS Symptoms (Recalled from RN notes): No Functional Status (Recalled from RN notes): WNL - History of Present Illness Provider Complaint: 36 yr old female presents for cough,runny nose,fever, rt ear pain and body aches. being treated for strep with zpack. took a home covid swab that was positive. - Related Data Home Medications Medication Instructions Recorded Confirmed Azithromycin [Zithromax 250mg 250 mg PO DIRECTED 09/17/21 09/17/21 tab] Previous Rx's Medication Instructions Recorded Benzonatate [Benzonatate 100mg 100 mg PO BID PRN 7 Days #14 cap 09/17/21 cap] Allergies Allergy/AdvReac Type Severity Reaction Status Date / Time No Known Allergies Allergy Verified 09/14/21 18:10 - Worker's Comp Is this a Worker's Comp case?: No [facility] History - Hepatitis A Screen Attestation statement:: This patient has been screened for Hepatitis A risk factors. I have reviewed the patient's past medical history: Yes Medical History: Denies:: Cancer, Diabetes Mellitus Type 1, Diabetes Mellitus Type 2, Hypertension, MRSA Other Surgeries: Yes: No Previous Surgery, Cholecystectomy, Amputation: No Fractures: No Comment: wisdom teeth - Social History Smoking Status: Former smoker Alcohol Intake: never Substance Use Type: denies use Occupational Status: other Housing: house Household Members: spouse, children Family Hx:: Cancer, Di
[2021-09-17 10:11] VITALS: BP 125/84; PULSE 102; RESP 22; TEMP 36.8; O2SAT 97
[2021-09-17 15:04] LABS: Coronavirus 19, PCR Detected (NotDetected)
--- NOTE | 2021-09-17 15:58 | PC.NURSE ---
PATIENT NOTIFIED OF POSITIVE COVID RESULT AT THIS TIME
== END 2021-09-17 10:20 | disposition home or self-care (01) ==
PROVIDERS: Emergency Provider Nurse Practitioner Family; PCP Internal Medicine Adolescent Medicine
DX: U07.1 COVID-19 (principal); B97.29 Other coronavirus as the cause of diseases classified elsewhere; J06.9 Acute upper respiratory infection, unspecified
CPT/HCPCS: 87581; 87632; 87798; 87804; 99212; C9803; G0463; U0003; U0005

== ENCOUNTER → 2022-01-17 16:15 | Outpatient (CLI) | payer BC, SELFPAY ==
[2022-01-17 17:50] LABS: Basophils # 0.1 K/mm3 (0-0.2); Basophils % 0.9 % (0.1-2.0); Eosinophils # 0.1 K/mm3 (0.0-0.4); Eosinophils % 1.3 % (0.1-12.0); Hematocrit 42.4 % (37.0-47.0); Hemoglobin 13.5 g/dL (12.2-16.2); Lymphocytes % 25.3 % (10-50); Mean Corpuscular HGB Conc 31.9 g/dL (31.8-35.4); Mean Corpuscular Hemoglobin 27.4 pg (27.0-31.2); Mean Platelet Volume 8.9 fl (7.4-10.4); Monocytes # 0.4 K/mm3 (0.1-1.0); Monocytes % 5.3 % (1.7-9.3); Neutrophils # 5.2 K/mm3 (1.8-7.8); Neutrophils % 67.2 % (37.0-80.0); Platelet Count 255 K/mm3 (142-424); Red Blood Count 4.94 M/mm3 (4.20-5.40); Red Cell Distribution Width 12.9 % (11.5-17.5); White Blood Count 7.8 K/mm3 (4.8-10.8)
[2022-01-17 18:05] LABS: Alanine Aminotransferase 16 U/L (12-78); Albumin Level 4.3 g/dl (3.5-5.0); Albumin/Globulin Ratio 1.7 (1.1-1.8); Alkaline Phosphatase 104 U/L (38-126); Anion Gap 11.5 mEq/L (5-15); Aspartate Amino Transferase 22 U/L (14-36); Blood Urea Nitrogen 13 mg/dl (7-17); Calcium 8.9 mg/dl (8.4-10.2); Carbon Dioxide 28 mmol/L (22.0-30.0); Chloride 103 mmol/L (98-107); Estimated Glomerular Filt Rate 70 ml/min (>60); GFR (African American) 85 ML/MIN (>60); Globulin 2.6 g/dL (1.3-3.2); Glucose 85 mg/dl (74-100); Potassium 4.5 mmoL/L (3.5-5.1); Sodium 138 mmol/L (136-145); Total Protein,Serum 6.9 g/dl (6.3-8.2)
[2022-01-17 18:06] LABS: Bilirubin,Total < 0.1 mg/dl (0.2-1.3)
[2022-01-17 18:20] LABS: Erythrocyte Sedimentation Rate 12 mm/hr (0-20)
[2022-01-17 18:36] LABS: Thyroid Stimulating Hormone 2.81 uIU/mL (0.465-4.68)
[2022-01-17 18:55] LABS: Vitamin B12 344 pg/mL (239-931)
[2022-01-22 11:34] LABS: Antinuclear Antibodies, IFA Negative (.)
== END ==
PROVIDERS: PCP Internal Medicine Adolescent Medicine; Visit Provider Nurse Practitioner Family
DX: R51.9 Headache, unspecified (principal); R20.2 Paresthesia of skin; I73.00 Raynaud's syndrome without gangrene
CPT/HCPCS: 36415; 80053; 82607; 84443; 85025; 85651; 86038; 86140

== ENCOUNTER → 2022-01-18 09:36 | Outpatient (CLI) | payer BC, SELFPAY ==
--- NOTE | 2022-01-18 09:44 | MR_ITS ---
FINAL REPORT CLINICAL HISTORY: FACIAL PARESTHESIA, LEFT SIDED HEADACHE goes into neck and behind left eye 17 ml prohance given COMPARISON: 12/22/2019 FINDINGS: Multiplanar MR imaging of the brain was performed without and with contrast. There is no evidence of intracranial hemorrhage or mass. No abnormal extra-axial fluid collection is seen. The ventricular size is within normal limits. There is no evidence of shift of the midline structures. The posterior fossa and brainstem have an unremarkable appearance. No area of abnormal restricted diffusion is identified. No abnormal contrast enhancement is seen. Normal major vessel vascular flow voids are noted. IMPRESSION: No acute intracranial abnormality identified. Reviewed, Interpreted and Dictated by Luis Montaño III, MD Transcribed by Mitul Laboy Authenticated and [facility]
== END ==
LOC: RAD 09:38
PROVIDERS: PCP Internal Medicine Adolescent Medicine; Visit Provider Nurse Practitioner Family
DX: R51.9 Headache, unspecified (principal); R20.2 Paresthesia of skin
CPT/HCPCS: 70553; A9576

== ENCOUNTER 2022-01-27 08:47 | Emergency (ER) | payer BC, SELFPAY ==
[2022-01-27 08:48] VITALS: BP 120/83; PULSE 92; RESP 18; TEMP 37.1; O2SAT 97; BMI 28.8
--- NOTE | 2022-01-27 09:05 | HMH.EDGENADL ---
Discharge Plan Disposition Patient Disposition: Home, Self-Care Chief Complaint: Abdominal Pain Prescriptions Prescriptions: No Action azithromycin 250 MG tablet 250 mg PO DIRECTED Rx Instructions: Take two (2) tablets on day #1, then one (1) tablet day #2 thru #5 benzonatate 100 MG capsule 100 mg PO BID PRN (Reason: Cough) 7 Days Qty: 14 0RF Referrals Follow up/Referrals: Angelito Medeiros MD [Primary Care Provider] - See instructions Clinical Impressions Clinical Impression: Acute flank pain Instructions Patient Instructions: DI for Flank Pain Discharge ED Provider: Kelby Herrera General Adult HPI General Chief complaint: Abdominal Pain Stated complaint: right side pain Time Seen by Provider: 01/27/22 09:05 Mode of Arrival: Ambulatory History of Present Illness HPI narrative: 36-year-old female reports numerous recent pain related issues, presents today with pain in the right flank has been ongoing for several days, started initially in the right upper chest wall and has progressed on the right side into the right lower flank and radiating down into the groin. She states she has been following with her PCP for these issues, they had planned outpatient ultrasound considering ovarian pathology however not been able to schedule it thus far. She denies any significant acute change today. She states previously she had been taking large quantities of ibuprofen for headache for which she had had MRI which was shown to be normal, has subsequently not been taking the ibuprofen. She denies fevers, chills, nausea, vomiting, dysuria, vaginal bleeding or discharge. She states periods are not regular if she has IUD. She has gynecology follow-up scheduled for March. She denies any leg swelling, recent travel, recent surgery or history of DVT or PE. Denies any chest pain, shortness of breath. No clear exacerbating or palliative factors, has not currently been taking anything for the discomfort. Related Data Home Medications Medication Instructions Recorded Confirmed azithromycin 250 mg tablet 250 mg PO DIRECTED STREP 09/17/21 09/17/21 Previous Rx's Medication Instructions Recorded benzonatate 100 mg capsule 100 mg PO BID PRN Cough 7 days #14 09/17/21 caps Allergies Allergy/AdvReac Type Severity Reaction Status Date / Time No Known Allergies Allergy Verified 09/14/21 18:10 PFSH PFS Social History Smoking Status: Never smoker alcohol intake: never substance use type: denies use current occupational status: other Travel in the last 8 weeks: Inside the [place] household members: spouse and children housing: house ROS Obtained: Yes Systems reviewed as appropriate & no additional complaints except as documented Constitutional Constitutional: Reports system reviewed and no additional complaints, except as documented Eyes Eyes: Reports system reviewed and no additional complaints, except as documented ENT Ears, Nose, Mouth, and Throat: Reports system reviewed and no additional complaints, except as documented Cardiovascular Cardiovascular: Reports system reviewed and no additional complaints, except as documented Respiratory Respiratory: Reports system reviewed and no additional complaints, except as documented Gastrointestinal Gastrointestingal: Reports system reviewed and no additional complaints, except as documented Genitourinary Female Genitourinary: Reports system reviewed and no additional complaints, except as documented Musculoskeletal Musculoskeletal: Reports system reviewed and no additional complaints, except as documented Integumentary/Breasts Skin/Breast: Reports system reviewed and no additional complaints, except as documented Neurologic Neurologic: Reports system reviewed and no additional complaints, except as documented Endocrine Endocrine: Reports system reviewed and no additional complai
--- NOTE | 2022-01-27 09:19 | XR_ITS ---
PROCEDURE INFORMATION: Exam: XR Chest Exam date and time: 01/27/2022 9:33 AM Age: 36 years old Clinical indication: Right-sided; Patient HX: Right sided chest pain under breast into axilla; Additional info: Sob/cp TECHNIQUE: Imaging protocol: Radiologic exam of the chest. Views: 1 view. COMPARISON: CR XR CHEST PORTABLE 03/18/2021 3:14 PM FINDINGS: Lungs: No focal airspace disease. Pleural spaces: Unremarkable. No pleural effusion. No pneumothorax. Heart/Mediastinum: Cardiomediastinal silhouette is within normal limits. Bones/joints: Unremarkable. IMPRESSION: No acute cardiopulmonary abnormality.
--- NOTE | 2022-01-27 09:35 | ECG_ITS ---
APPROVED REPORT Exam: Resting ECG HR:81 bpm ECG Measurements Heart Rate 81 AXES SC 140 P 57 QRSd 78 QRS 72 QT 337 T 56 QTc 374 Conclusion SINUS RHYTHM WITH SINUS ARRHYTHMIA LOW QRS VOLTAGE IN PRECORDIAL LEADS [QRS DEFLECTION < 1.0 mV IN CHEST LEADS] BORDERLINE ECG UNCONFIRMED REPORT Electronically signed by : Angelito Medeiros MD 02/01/2022 16:06:42
[2022-01-27 09:51] LABS: Microscopic, Urine URINE MICROSCOPIC (MICROSCOPIC)
[2022-01-27 09:53] LABS: Appearance,Urine CLEAR (Clear); Bilirubin,Urine Negative (Negative); Blood, Urine 1+ (Negative); Color,Urine YELLOW (Yellow); Glucose,Urine (UA) Negative (Negative); Ketones,Urine Negative (Negative); Leukocyte Esterase,Urine Negative (Negative); Nitrate,Urine Negative (Negative); Protein,Urine Negative (Negative); Specific Gravity, Urine 1.025 (1.005-1.030); Urobilinogen,Urine 0.2 EU/dl (0.2)
[2022-01-27 10:08] LABS: Bacteria,Urine 2+ /lpf; Mucus,Urine 2+ /lpf
[2022-01-27 10:09] LABS: RBC,Urine Occasional #/hpf (0-3)
[2022-01-27 10:16] LABS: Basophils # 0.1 K/mm3 (0-0.2); Basophils % 2.6 % (0.1-2.0); Eosinophils # 0.1 K/mm3 (0.0-0.4); Eosinophils % 1.6 % (0.1-12.0); Hemoglobin 14.4 g/dL (12.2-16.2); Lymphocytes # 1.7 K/mm3 (0.7-4.5); Lymphocytes % 30.1 % (10-50); Mean Corpuscular HGB Conc 32.7 g/dL (31.8-35.4); Mean Corpuscular Volume 85.7 fl (81-99); Mean Platelet Volume 9.4 fl (7.4-10.4); Monocytes # 0.4 K/mm3 (0.1-1.0); Neutrophils # 3.2 K/mm3 (1.8-7.8); Neutrophils % 58.7 % (37.0-80.0); Platelet Count 269 K/mm3 (142-424); Red Blood Count 5.14 M/mm3 (4.20-5.40); Red Cell Distribution Width 13.1 % (11.5-17.5); White Blood Count 5.5 K/mm3 (4.8-10.8)
[2022-01-27 10:27] LABS: Alanine Aminotransferase 17 U/L (12-78); Albumin Level 4.2 g/dl (3.5-5.0); Albumin/Globulin Ratio 1.6 (1.1-1.8); Alkaline Phosphatase 87 U/L (38-126); Anion Gap 13.2 mEq/L (5-15); Aspartate Amino Transferase 28 U/L (14-36); Bilirubin,Total < 0.1 mg/dl (0.2-1.3); Blood Urea Nitrogen 17 mg/dl (7-17); Calcium 8.5 mg/dl (8.4-10.2); Carbon Dioxide 23 mmol/L (22.0-30.0); Chloride 104 mmol/L (98-107); Creatinine Clearance Estimated 144 mL/min (50-200); Estimated Glomerular Filt Rate 94 ml/min (>60); GFR (African American) 113 ML/MIN (>60); Globulin 2.7 g/dL (1.3-3.2); Glucose 99 mg/dl (74-100); Lipase 60 U/L (23-300); Potassium 4.2 mmoL/L (3.5-5.1); Sodium 136 mmol/L (136-145); Total Protein,Serum 6.9 g/dl (6.3-8.2)
[2022-01-27 10:31] LABS: D-Dimer 0.48 ug/mL (0.0-0.5)
[2022-01-27 10:39] LABS: HCG Qualitative, Serum Negative (Negative)
[2022-01-27 10:44] LABS: Troponin I < 0.01 ng/ml (0.00-0.034)
--- NOTE | 2022-01-27 11:58 | PC.NURSE ---
Rounded on patient. Pt does not need anything at this time. Call light within reach of patint
[2022-01-27 12:02] VITALS: BP 121/73; PULSE 70; RESP 18; TEMP 36.8; O2SAT 99
== END 2022-01-27 12:02 | disposition home or self-care (01) ==
PROVIDERS: Emergency Provider Emergency Medicine; PCP Internal Medicine Adolescent Medicine
DX: R10.31 Right lower quadrant pain (principal)
CPT/HCPCS: 71045; 80053; 81001; 83690; 84484; 84703; 85025; 85378; 87086; 93005; 99285

== ENCOUNTER → 2022-02-01 09:11 | Outpatient (CLI) | payer BC, SELFPAY ==
--- NOTE | 2022-02-01 09:14 | US_ITS ---
FINAL REPORT CLINICAL HISTORY: RUQ PAIN FINDINGS: Transvaginal Ultrasound Technique: Transvaginal sonographic images of the pelvis were obtained. Findings: The uterus is normal in size. An IUD is in place. The right ovary is unremarkable. The left ovary is unremarkable. There is no significant free fluid. IMPRESSION: No acute process. IUD in place. Reviewed, Interpreted and Dictated by Rosalinda Henderson MD Transcribed by Mitul Laboy Authenticated and [facility]
== END ==
LOC: RAD 09:11
PROVIDERS: PCP Internal Medicine Adolescent Medicine; Visit Provider Nurse Practitioner Family
DX: R10.31 Right lower quadrant pain (principal)
CPT/HCPCS: 76830

== ENCOUNTER → 2022-02-12 13:43 | Outpatient (CLI) | payer BC, SELFPAY ==
--- NOTE | 2022-02-12 13:50 | MM_ITS ---
PROCEDURE INFORMATION: Exam: US Right Breast, Complete MG Right Diagnostic Breast Tomosynthesis Exam date and time: 02/12/2022 2:19 PM Age: 36 years old Clinical indication: 1-2 month history of diffuse right breast pain. No palpable lump is reported. TECHNIQUE: Imaging protocol: Complete ultrasound of all four quadrants of the Right breast and the retroareolar regions, including ultrasound of the axilla when performed. Right Diagnostic tomosynthesis and 2D mammography including computer-aided detection (CAD) when performed. Unilateral or bilateral exam. COMPARISON: MG MM DIG MAMM DX UNILAT RT CAD 02/12/2022 1:58 PM FINDINGS: MAMMOGRAPHY: There are scattered areas of fibroglandular density. No mass, architectural distortion, or suspicious calcifications are present to suggest malignancy. No axillary adenopathy. ULTRASOUND: Normal glandular structures are present No suspicious solid or cystic mass is present. No benign-appearing solid or cystic mass is present. No architectural distortion or shadowing is present. No axillary adenopathy is present. IMPRESSION: No mammographic or sonographic evidence of malignancy. Recommend annual screening mammography beginning at age 40 unless otherwise clinically indicated. ASSESSMENT: BI-RADS category 1: Negative
== END ==
LOC: RAD 13:44
PROVIDERS: PCP Internal Medicine Adolescent Medicine; Visit Provider Nurse Practitioner Family
DX: N64.4 Mastodynia (principal)
CPT/HCPCS: 76641; 77061; 77065; G0279

== ENCOUNTER 2022-03-19 17:26 | Emergency (ER) | payer BC, SELFPAY ==
[2022-03-19] VITALS (9 sets, daily range): BP systolic 106–121; BP diastolic 65–86; PULSE 72–103; RESP 18–20; TEMP 36.6; O2SAT 98–100; BMI 25.0
--- NOTE | 2022-03-19 17:22 | ECG_ITS ---
APPROVED REPORT Exam: Resting ECG HR:100 bpm ECG Measurements Heart Rate 100 AXES OH 136 P 52 QRSd 78 QRS 15 QT 298 T 29 QTc 355 Conclusion SINUS TACHYCARDIA LOW QRS VOLTAGE IN PRECORDIAL LEADS [QRS DEFLECTION < 1.0 mV IN CHEST LEADS] ABNORMAL RHYTHM ECG UNCONFIRMED REPORT Electronically signed by : Angelito Medeiros MD 03/20/2022 19:43:04
--- NOTE | 2022-03-19 17:59 | XR_ITS ---
PROCEDURE INFORMATION: Exam: XR Chest Exam date and time: 03/19/2022 6:17 PM Age: 37 years old Clinical indication: Shortness of breath; Additional info: SOA TECHNIQUE: Imaging protocol: Radiologic exam of the chest. Views: 1 view. COMPARISON: CR XR CHEST PORTABLE 01/27/2022 9:33 AM FINDINGS: Lungs: Unremarkable. No consolidation. Pleural spaces: Unremarkable. No pleural effusion. No pneumothorax. Heart/Mediastinum: Unremarkable. No cardiomegaly. Bones/joints: Unremarkable for age. IMPRESSION: Negative chest
--- NOTE | 2022-03-19 18:00 | PC.NURSE ---
no needs voiced at this time
[2022-03-19 18:09] LABS: Chloride 100 mmol/L (98-107)
[2022-03-19 18:10] LABS: Potassium 3.8 mmoL/L (3.5-5.1); Sodium 139 mmol/L (136-145)
[2022-03-19 18:12] LABS: Alanine Aminotransferase 21 U/L (12-78); Alkaline Phosphatase 90 U/L (38-126); Aspartate Amino Transferase 28 U/L (14-36); Bilirubin,Total 0.4 mg/dl (0.2-1.3); Blood Urea Nitrogen 14 mg/dl (7-17); Creatinine Clearance Estimated 108 mL/min (50-200); Estimated Glomerular Filt Rate 80 ml/min (>60); GFR (African American) 97 ML/MIN (>60)
[2022-03-19 18:13] LABS: Albumin Level 4.7 g/dl (3.5-5.0); Albumin/Globulin Ratio 1.6 (1.1-1.8); Anion Gap 15.8 mEq/L (5-15); Basophils # 0.1 K/mm3 (0-0.2); Calcium 9.8 mg/dl (8.4-10.2); Carbon Dioxide 27 mmol/L (22.0-30.0); Eosinophils # 0.1 K/mm3 (0.0-0.4); Eosinophils % 1.1 % (0.1-12.0); Globulin 2.9 g/dL (1.3-3.2); Glucose 113 mg/dl (74-100); Hematocrit 44.4 % (37.0-47.0); Hemoglobin 14.2 g/dL (12.2-16.2); Lymphocytes # 2.6 K/mm3 (0.7-4.5); Lymphocytes % 27.3 % (10-50); Mean Corpuscular Hemoglobin 27.3 pg (27.0-31.2); Mean Corpuscular Volume 85.3 fl (81-99); Mean Platelet Volume 9.2 fl (7.4-10.4); Monocytes # 0.4 K/mm3 (0.1-1.0); Monocytes % 3.9 % (1.7-9.3); Neutrophils # 6.4 K/mm3 (1.8-7.8); Neutrophils % 66.8 % (37.0-80.0); Platelet Count 263 K/mm3 (142-424); Red Blood Count 5.21 M/mm3 (4.20-5.40); Red Cell Distribution Width 12.9 % (11.5-17.5); Total Protein,Serum 7.6 g/dl (6.3-8.2); White Blood Count 9.6 K/mm3 (4.8-10.8)
--- NOTE | 2022-03-19 19:29 | HMH.EDGENADL ---
Discharge Plan Disposition Patient Disposition: Home, Self-Care Condition: Good Prescriptions Prescriptions: No Action Mirena 20 mcg/24 hours (8 yrs) 52 mg intrauterine device intrauterine phentermine [Adipex-P] 37.5 mg tablet 37.5 mg PO DAILY Qty: 30 0RF Rx Instructions: must administer 30 minutes before or 1-2 hours after breakfast benzonatate 100 MG capsule 100 mg PO BID PRN (Reason: Cough) 7 Days Qty: 14 0RF Referrals Follow up/Referrals: Provider,Garcia, [Primary Care Provider] - See instructions Clinical Impressions Clinical Impression: Shortness of breath, Benign paroxysmal positional vertigo Instructions Patient Instructions: Dizziness, Nonvertigo Discharge ED Provider: Jose Rendon General Adult HPI <Jose Rendon MD - Last Filed: 03/20/22 08:45> General Chief complaint: Dizziness Stated complaint: chest pain Time Seen by Provider: 03/19/22 19:14 Mode of Arrival: Ambulatory Source of Information: Patient Limitations: No Limitations Description of Symptoms (Recalled from ER Triage Doc. by RN): pt to ed c/o dizziness. pt states she recently started adipex and said after a few days she started to feel funny. pt reports SOA. History of Present Illness HPI narrative: Patient presents complaining of dizziness that began this past Saturday. Saturday she developed some chest discomfort as well as shortness of air. She states her principal concerns are the shortness of air. She states her recently had a viral illness and she is concerned she may have contracted the illness from him. She denies fever chills or productive cough at this time. Symptoms are described as moderate and without exacerbating or alleviating factors. Related Data Home Medications Medication Instructions Recorded Confirmed levonorgestrel 20 mcg/24 hours (8 intrauterine 03/13/22 03/13/22 yrs) 52 mg intrauterine device (Mirena) Previous Rx's Medication Instructions Recorded benzonatate 100 mg capsule 100 mg PO BID PRN Cough 7 days #14 09/17/21 caps phentermine 37.5 mg tablet 37.5 mg PO DAILY #30 tabs 03/13/22 (Adipex-P) Allergies Allergy/AdvReac Type Severity Reaction Status Date / Time No Known Allergies Allergy Verified 03/13/22 08:54 PFSH <Jose Rendon MD - Last Filed: 11/15/22 08:45> PFS Medical History (Updated 03/19/22 @ 21:56 by Herb Malhotra MD) Acid reflux Gastroenteritis Surgical History (Updated 03/13/22 @ 08:55 by JOSE Harley) H/O LEEP Social History Smoking Status: Never smoker alcohol intake: never substance use type: denies use current occupational status: other Travel in the last 8 weeks: [place] the [place] household members: spouse and children housing: house <Jose Rendon MD - Last Filed: 03/20/22 08:45> ROS Obtained: Yes All systems reviewed & no additional complaints except as documented Physical Exam <Jose Rendon MD - Last Filed: 03/20/22 08:45> General General appearance: alert and in no apparent distress Head Head exam: atraumatic Eye Eye exam: Present normal appearance ENT ENT exam: Present normal exam and normal oropharynx Neck Neck exam: Present normal inspection Chest Chest inspection: Present normal inspection and symmetric chest wall rise Respiratory Respiratory exam: Present normal lung sounds bilaterally Cardiovascular Cardiovascular exam: Present regular rate and normal rhythm Abdominal Exam Abdominal exam: Present soft; Absent tenderness Extremities Exam Extremities exam: Present normal inspection Back Exam Back exam: Present normal inspection Neurological Exam Neurological exam: Present alert, oriented X3, CN II-XII intact, motor sensory deficit, reflexes normal and other (Normal [id number]. Normal [id number].) Psychiatric Psychiatric exam: Present normal affect Skin Skin exam: Present warm and dry Lymphatic Lym
[2022-03-19 20:26] LABS: D-Dimer 0.59 ug/mL (0.0-0.5)
--- NOTE | 2022-03-19 20:31 | CT_ITS ---
PROCEDURE INFORMATION: Exam: CTA Chest With Contrast Exam date and time: 03/19/2022 9:53 PM Age: 37 years old Clinical indication: Shortness of breath; Additional info: SOA TECHNIQUE: Imaging protocol: Computed tomographic angiography of the chest with contrast. 3D rendering (Not supervised by radiologist): MIP and/or 3D reconstructed images were created by the technologist. Radiation optimization: All CT scans at this facility use at least one of these dose optimization techniques: automated exposure control; mA and/or kV adjustment per patient size (includes targeted exams where dose is matched to clinical indication); or iterative reconstruction. Contrast material: ISOVUE; Contrast volume: 70 ml; Contrast route: INTRAVENOUS (IV); COMPARISON: CR XR CHEST PORTABLE 03/19/2022 6:17 PM FINDINGS: Pulmonary arteries: Normal. No pulmonary emboli. Aorta: Unremarkable. No aortic aneurysm. No aortic dissection. Lungs: Unremarkable. No consolidation. No masses. Pleural spaces: Unremarkable. No pneumothorax. No pleural effusion. Heart: Unremarkable. No cardiomegaly. No pericardial effusion. Lymph nodes: Unremarkable. No enlarged lymph nodes. Bones/joints: Unremarkable. No acute fracture. Soft tissues: Unremarkable. IMPRESSION: No acute findings.
--- NOTE | 2022-03-19 20:31 | CT_ITS ---
PROCEDURE INFORMATION: Exam: CT Head Without Contrast Exam date and time: 03/19/2022 9:49 PM Age: 37 years old Clinical indication: Dizziness; Additional info: Dizzy TECHNIQUE: Imaging protocol: Computed tomography of the head without contrast. Radiation optimization: All CT scans at this facility use at least one of these dose optimization techniques: automated exposure control; mA and/or kV adjustment per patient size (includes targeted exams where dose is matched to clinical indication); or iterative reconstruction. COMPARISON: MR HEAD/BRAIN WO/W CON 01/18/2022 9:43 AM FINDINGS: Brain: Normal. No hemorrhage. Unremarkable white matter. No mass effect. Cerebral ventricles: No ventriculomegaly. Paranasal sinuses: Visualized sinuses are unremarkable. No fluid levels. Mastoid air cells: Visualized mastoid air cells are well aerated. Bones/joints: Unremarkable. No acute fracture. Soft tissues: Unremarkable. IMPRESSION: No acute intracranial abnormality.
[2022-03-19 20:44] LABS: HCG Qualitative, Serum Negative (Negative)
--- NOTE | 2022-03-19 21:54 | PC.NURSE ---
Dr. Malhotra at
[2022-03-19 21:58] LABS: Coronavirus 19, PCR Not Detected (NotDetected); Influenza A, PCR Not Detected (NotDetected); Influenza B, PCR Not Detected (NotDetected)
== END 2022-03-19 21:55 | disposition home or self-care (01) ==
PROVIDERS: Emergency Medicine; Emergency Provider Emergency Medicine
DX: H81.10 Benign paroxysmal vertigo, unspecified ear (principal); R94.31 Abnormal electrocardiogram [ECG] [EKG]; R93.89 Abnormal findings on diagnostic imaging of other specified body structures; R07.9 Chest pain, unspecified; R06.02 Shortness of breath; Z20.822 Contact with and (suspected) exposure to COVID-19; R00.0 Tachycardia, unspecified; R05.9 Cough, unspecified; I20.9 Angina pectoris, unspecified; K21.9 Gastro-esophageal reflux disease without esophagitis; K52.9 Noninfective gastroenteritis and colitis, unspecified; Z79.3 Long term (current) use of hormonal contraceptives; Z79.82 Long term (current) use of aspirin; Z79.899 Other long term (current) drug therapy; Z87.891 Personal history of nicotine dependence; Z82.49 Family history of ischemic heart disease and other diseases of the circulatory system; Z83.438 Family history of other disorder of lipoprotein metabolism and other lipidemia
CPT/HCPCS: 70450; 71045; 71275; 80053; 84703; 85025; 85378; 93005; 99285; C9803; Q9967; U0003; U0005

== ENCOUNTER 2022-03-20 12:16 | Observation (INO) | payer BC, SELFPAY ==
[2022-03-20] VITALS (12 sets, daily range): BP systolic 101–157; BP diastolic 62–100; PULSE 60–108; RESP 14–21; TEMP 36.6–36.8; O2SAT 96–100; BMI 35.0; BMI 29.4
--- NOTE | 2022-03-20 12:15 | ECG_ITS ---
APPROVED REPORT Exam: Resting ECG HR:115 bpm ECG Measurements Heart Rate 115 AXES AR 136 P 65 QRSd 81 QRS 36 QT 294 T 40 QTc 362 Conclusion SINUS TACHYCARDIA ABNORMAL RHYTHM ECG UNCONFIRMED REPORT Electronically signed by : Angelito Medeiros MD 03/20/2022 19:42:43
--- NOTE | 2022-03-20 12:27 | XR_ITS ---
FINAL REPORT CLINICAL HISTORY: cp COMPARISON: March 19, 2022 FINDINGS: The heart size is normal. The mediastinum is within normal limits. There is no acute cardiopulmonary process. There is no pleural effusion. There is no pneumothorax. The bony thorax is intact. IMPRESSION: No acute cardiopulmonary process. Reviewed, Interpreted and Dictated by Arie Bazan MD Transcribed by Mitul Laboy Authenticated and . [facility]
--- NOTE | 2022-03-20 12:34 | HMH.EDGENADL ---
Discharge Plan Disposition Patient Disposition: Admitted As Inpatient Condition: Good Clinical Impressions Clinical Impression: Chest pain Discharge ED Provider: Jose Rendon General Adult HPI General Chief complaint: Dizziness Stated complaint: chest pain Time Seen by Provider: 03/20/22 12:19 History of Present Illness HPI narrative: Patient presents complaining of chest discomfort that began approxi-1 hour prior to ED presentation. 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 She describes the discomfort as left-sided. She notes some associated shortness of air. She notes some discomfort in the left arm. She was seen here yesterday and evaluated for shortness of air and dizziness and had a negative CT scan of the chest at that time. EKG yesterday did not demonstrate evidence of acute ischemic changes. Presently she describes her discomfort as mild but also states that she feels like she might pass out. Related Data Home Medications Medication Instructions Recorded Confirmed levonorgestrel 20 mcg/24 hours (8 1 device intrauterine DIRECTED 03/13/22 03/20/22 yrs) 52 mg intrauterine device control (Mirena) phentermine 37.5 mg tablet 37.5 mg PO DAILY Weight loss 03/20/22 03/20/22 (Adipex-P) Allergies Allergy/AdvReac Type Severity Reaction Status Date / Time No Known Allergies Allergy Verified 03/13/22 08:54 [facility] Medical History (Updated 03/20/22 @ 18:23 by Ariella Mosquera RN) Abnormal electrocardiogram [ECG] [EKG] Acid reflux Chest pain Family history of ischemic heart disease Former smoker Gastroenteritis Sinus tachycardia Surgical History (Updated 03/13/22 @ 08:55 by JOSE Harley) H/O LEEP Social History Smoking Status: Never smoker alcohol intake: never substance use type: denies use current occupational status: other Travel in the last 8 weeks: [place] the [place] household members: spouse and children housing: house ROS Obtained: Yes All systems reviewed & no additional complaints except as documented Constitutional Constitutional: Reports system reviewed and no additional complaints, except as documented Eyes Eyes: Reports system reviewed and no additional complaints, except as documented ENT Ears, Nose, Mouth, and Throat: Reports system reviewed and no additional complaints, except as documented Cardiovascular Cardiovascular: Reports system reviewed and no additional complaints, except as documented Respiratory Respiratory: Reports system reviewed and no additional complaints, except as documented Gastrointestinal Gastrointestingal: Reports system reviewed and no additional complaints, except as documented Musculoskeletal Musculoskeletal: Reports system reviewed and no additional complaints, except as documented Integumentary/Breasts Skin/Breast: Reports system reviewed and no additional complaints, except as documented Neurologic Neurologic: Reports system reviewed and no additional complaints, except as documented Endocrine Endocrine: Reports system reviewed and no additional complaints, except as documented Hematologic/Lymphatic Henatologic/Lymphatic: Reports system reviewed and no additional complaints, except as documented Allergic/Immunologic Allergic/Immunologic: Reports system reviewed and no additional complaints, except as documented Physical Exam General General appearance: alert and in no apparent distress Head Head exam: atraumatic Eye Eye exam: Present normal appearance ENT ENT exam: Present normal exam Neck Neck exam: Present normal inspection Chest Chest inspection: Present normal inspection Respiratory Respiratory exam: Present normal lung sounds bilaterally; Absent respiratory distress Cardiovascular Cardiovascular exam: Present normal rhythm and tachycardia Abdominal Exam Abdominal exam: Present soft; Absent tenderness External ex
[2022-03-20 12:37] LABS: Chloride 102 mmol/L (98-107); Potassium 3.7 mmoL/L (3.5-5.1); Sodium 140 mmol/L (136-145)
[2022-03-20 12:39] LABS: Blood Urea Nitrogen 10 mg/dl (7-17); Estimated Glomerular Filt Rate 93 ml/min (>60); GFR (African American) 113 ML/MIN (>60)
[2022-03-20 12:40] LABS: Alanine Aminotransferase 21 U/L (12-78); Albumin Level 4.7 g/dl (3.5-5.0); Albumin/Globulin Ratio 1.5 (1.1-1.8); Alkaline Phosphatase 94 U/L (38-126); Anion Gap 15.7 mEq/L (5-15); Aspartate Amino Transferase 26 U/L (14-36); Bilirubin,Total 0.5 mg/dl (0.2-1.3); Calcium 9.4 mg/dl (8.4-10.2); Carbon Dioxide 26 mmol/L (22.0-30.0); Globulin 3.2 g/dL (1.3-3.2); Glucose 98 mg/dl (74-100); Total Protein,Serum 7.9 g/dl (6.3-8.2)
[2022-03-20 12:42] LABS: Basophils # 0.1 K/mm3 (0-0.2); Basophils % 1.4 % (0.1-2.0); Eosinophils # 0.1 K/mm3 (0.0-0.4); Eosinophils % 1.4 % (0.1-12.0); Hematocrit 44.3 % (37.0-47.0); Hemoglobin 14.6 g/dL (12.2-16.2); INR 1.14 (0.9-1.1); Lymphocytes # 2.1 K/mm3 (0.7-4.5); Lymphocytes % 27.7 % (10-50); Mean Corpuscular Hemoglobin 27.9 pg (27.0-31.2); Mean Corpuscular Volume 84.4 fl (81-99); Mean Platelet Volume 9.1 fl (7.4-10.4); Monocytes # 0.4 K/mm3 (0.1-1.0); Monocytes % 4.6 % (1.7-9.3); Neutrophils % 64.9 % (37.0-80.0); Platelet Count 257 K/mm3 (142-424); Prothrombin Time 12.2 seconds (10.1-12.5); Red Blood Count 5.25 M/mm3 (4.20-5.40); Red Cell Distribution Width 12.7 % (11.5-17.5); White Blood Count 7.7 K/mm3 (4.8-10.8)
[2022-03-20 12:53] LABS: Troponin I < 0.01 ng/ml (0.00-0.034)
--- NOTE | 2022-03-20 13:00 | PC.NURSE ---
called Dr Allred for for ER doctor
--- NOTE | 2022-03-20 13:38 | PC.NURSE ---
DR JULIEN AT
--- NOTE | 2022-03-20 13:40 | PC.NURSE ---
PT AMBULATED TO BR
--- NOTE | 2022-03-20 13:53 | PC.NURSE ---
PINKY cruz at the bedside
--- NOTE | 2022-03-20 14:28 | EXP.CARD.CON ---
History of Present Illness History of Present Illness Consult date: 03/20/22 Requesting physician: Jose Rendon Consult reason: chest pain Chief complaint: chest pain History of present illness: This is a 37-year-old white female who presented to the emergency department complaints of chest pain. The patient was also in the emergency department yesterday with similar complaints. The patient reports that she started taking Adipex last week and she started feeling weird after the first dose. She states that she initially started off taking half a tablet and then progressed to a full tablet on around of last week. She states on Saturday she was very short of breath and dizzy and lightheaded. She states that with any exertion her shortness of breath was significantly worsening and she just did not feel well. She came to the emergency department yesterday. She had a positive D-dimer and underwent CTA of the chest which showed no PE. The patient was discharged home. 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 She states that she was walking around the classroom helping students when she had sudden onset of chest pain. She reports that this is a left-sided sharp sensation that radiates to her neck and left arm. It is associated with shortness of breath and dizziness. She states that this was a severe 10 out of 10 pain. She states it only lasted 1 minute and then resolved. About an hour later she states that she started to feel very funny again and felt as if she were then passed out but had no recurrence of the chest pain. At that time she decided to leave work and come to the emergency department. Her EKG yesterday did not show any ischemic changes. Her EKG today does show some inferior ST depression. Her initial troponin today is negative. She states that she still feels kind of short of breath and dizzy but the chest pain has resolved. She denies any fever, chills, nausea, vomiting, diarrhea, PND orthopnea. The patient is a former tobacco user. She states that she stopped several years ago. She reports that her mother had coronary artery bypass grafting at the age of 50. [facility] Medical History (Updated 03/20/22 @ 14:37 by Mia Luther APRN) Abnormal electrocardiogram [ECG] [EKG] Acid reflux Chest pain Family history of ischemic heart disease Former smoker Gastroenteritis Sinus tachycardia Surgical History (Updated 03/13/22 @ 08:55 by JOSE Harley) H/O LEEP Social History Smoking Status: Never smoker alcohol intake: never substance use type: denies use current occupational status: other Travel in the last 8 weeks: Inside the [place] household members: spouse and children housing: house Review of Systems Review of Systems Review of systems:: pertinent systems reviewed and negative unless documented below Constitutional Constitutional: Reports system reviewed and no additional complaints, except as documented and Reports lethargy Eyes Eyes: Reports system reviewed and no additional complaints, except as documented ENT Ears, Nose, Mouth, and Throat: Reports system reviewed and no additional complaints, except as documented and Reports vertigo *Cardiovascular Cardiovascular: Reports system reviewed and no additional complaints, except as documented, Reports as per HPI, Reports chest pain, Reports chest pain at rest, Reports chest pain with activity, Reports dyspnea, Reports dyspnea on exertion and Reports radiating jaw, neck or arm pain *Respiratory Respiratory: Reports system reviewed and no additional complaints, except as documented, Reports dyspnea and Reports dyspnea on exertion *Gastrointestinal Gastrointestinal: Reports system reviewed and no additional complaints, except as documented *Genitourinary Genitourinary: Reports system reviewed and no additional complaints, except as documented *Musculoskeletal Musculoskeletal: Reports sys
--- NOTE | 2022-03-20 14:42 | PC.NURSE ---
echo at the bedside
[2022-03-20 16:46] LABS: Troponin I < 0.01 ng/ml (0.00-0.034)
--- NOTE | 2022-03-20 17:15 | PC.NURSE ---
HOUSE CALLED FOR BED
--- NOTE | 2022-03-20 17:20 | PC.NURSE ---
speaking with Dr. Medeiros
--- NOTE | 2022-03-20 18:06 | PC.NURSE ---
Rounded on pt, provided her with dinner tray and updated her we would be calling report to get her up to her room. No other needs at this time.
[2022-03-20 18:20] LABS: Coronavirus 19, PCR Not Detected (NotDetected); Influenza A, PCR Not Detected (NotDetected); Influenza B, PCR Not Detected (NotDetected)
--- NOTE | 2022-03-20 18:23 | PC.NURSE ---
Pt arrived to the floor at this time
--- NOTE | 2022-03-20 19:56 | PC.NURSE ---
Pt assessed at 1850. nad noted, pt denies any chest pain. lungs are clear throughout, bowel sounds are active in all quads. pt states last BM 03/19/22. POC and potential procedure explained to patient. temperature in pt room was increased during assessment. pt voices no other needs or concerns at this time. report given to Giorgio Garcia RN at 1915.
[2022-03-21] VITALS (20 sets, daily range): BP systolic 92–139; BP diastolic 52–86; PULSE 60–99; RESP 14–18; TEMP 36.4–36.8; O2SAT 93–100; BMI 29.2
--- NOTE | 2022-03-21 06:37 | PC.NURSE ---
Pt c/o mid chest pain rating it 2/10. Pt states it has not changed since arriving to hospital. Pt does state it has started to radiate to left shoulder. MD made aware. Tylenol ordered. Call light within reach.
--- NOTE | 2022-03-21 08:53 | EXP.HP ---
History of Present Illness *Admission Date: 03/20/22 *Reason for visit:: Chest pain *History of present illness: 37-year-old female with family history of coronary disease who over the past several days has had increasing problems with shortness of air, some symptoms of chest pain. 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 This has seemed to accelerate her symptoms and she came to the emergency department for pain. Yesterday she was in the ER, had an evaluation for PE which was negative, other labs were unremarkable, on the day of admission she had a CT coronary angiogram which revealed a 60% single-vessel lesion and she was admitted to hospital for further evaluation and plans for left heart cath. [facility] Medical History Abnormal electrocardiogram [ECG] [EKG] Acid reflux Chest pain Family history of ischemic heart disease Former smoker Gastroenteritis Sinus tachycardia Surgical History (Updated 03/21/22 @ 05:02 by Jenny Garcia RN) H/O LEEP History of section Family History (Updated 03/21/22 @ 05:02 by Jenny Garcia RN) Family history of hypertension Family history of myocardial infarction Family history of hyperlipidemia Social History (Updated 03/21/22 @ 05:03 by Jenny Garcia RN) Smoking Status: Never smoker alcohol intake: never substance use type: denies use current occupational status: other Travel in the last 8 weeks: [place] the [place] household members: spouse and children housing: house Review of Systems Review of Systems Review of systems:: pertinent systems reviewed and negative unless documented below ENT Ears, Nose, Mouth, and Throat: Reports vertigo *Neurologic Neurologic: Reports system reviewed and no additional complaints, except as documented and Reports vertigo Meds Home Medications and Allergies Home Medications Medication Instructions Recorded Confirmed Type levonorgestrel 20 mcg/24 hours (8 1 device intrauterine DIRECTED 03/13/22 03/20/22 History yrs) 52 mg intrauterine device control (Mirena) aspirin 81 mg tablet 81 mg PO HS Pain 03/20/22 03/20/22 History phentermine 37.5 mg tablet 37.5 mg PO DAILY Weight loss 03/20/22 03/20/22 History (Adipex-P) New Prescriptions to Start Prescriptions: Allergies Allergy/AdvReac Type Severity Reaction Status Date / Time No Known Allergies Allergy Verified 03/13/22 08:54 Exam Data for Last 24 hours Vital signs and Labs for Last 24 Hours: Temp Pulse Resp BP Pulse Ox 98.2 F 88 16 127/73 99 03/21/22 07:51 03/21/22 07:51 03/21/22 07:51 03/21/22 07:51 03/21/22 07:51 Laboratory Results - last 24 hr 03/20/22 12:18: WBC 7.7, RBC 5.25, Hgb 14.6, Hct 44.3, MCV 84.4, MCH 27.9, MCHC 33.0, RDW 12.7, Plt Count 257, MPV 9.1, Neut % (Auto) 64.9, Lymph % (Auto) 27.7, [place] % (Auto) 4.6, Eos % (Auto) 1.4, Baso % (Auto) 1.4, Neut # (Auto) 5.0, Lymph # (Auto) 2.1, [place] # (Auto) 0.4, Eos # (Auto) 0.1, Baso # (Auto) 0.1 03/20/22 12:18: PT 12.2, INR 1.14 H 03/20/22 12:18: Sodium 140, Potassium 3.7, Chloride 102, Carbon Dioxide 26, Anion Gap 15.7 H, BUN 10 D, Creatinine 0.70, Estimated GFR 93, Est GFR ( Amer) 113, Glucose 98, Calcium 9.4, Total Bilirubin 0.5, AST 26, ALT 21, Alkaline Phosphatase 94, Troponin I < 0.01, Total Protein 7.9, Albumin 4.7, Globulin 3.2, Albumin/Globulin Ratio 1.5 03/20/22 16:00: Troponin I < 0.01 03/20/22 16:55: SARS-CoV-2 (PCR) Not detected, Influenza A Untype (PCR) Not detected, Influenza Type B (PCR) Not detected I & O for Last 24 hours: Intake & Output 03/18/22 03/19/22 03/20/22 03/21/22 11:59 11:59 11:59 11:59 Weight 182 lb Constitutional Constitutional: no acute distress *Routine HEENT Exam Head: Present normocephalic Eye: Present EOMI and PERRL ENT: Present mucous membranes moist *Rou
--- NOTE | 2022-03-21 09:48 | IR_ITS ---
APPROVED REPORT Patient Location: Inpatient PROCEDURES Left heart catheterization Left ventriculogram Selective coronary angiogram INDICATION Coronary artery disease, Unstable angina, Abnormal CTA indicating coronary artery disease Informed consent was obtained prior to the procedure. COMPLICATIONS None Estimated Blood Loss: Less than 10 ML TECHNIQUE One percent lidocaine used to anesthetize the right anterior aspect of the wrist. The right radial artery was accessed via the Seldinger technique. A 6 [place] sheath was placed in the right radial artery. 2.5 mg of verapamil, 800 mcg of nitroglycerin, 1mg Lidocaine and 5000 U Heparin were given through the arterial sheath. The papa catheter was also used to perform left heart catheterization, left ventriculogram and selective coronary angiogram. At the end of the procedure the sheath was removed good hemostasis was achieved using Traclet band, patient was transferred to the postop holding area in stable condition. ANGIOGRAPHIC RESULTS The left main artery Normal The left anterior descending artery As proximal hazy 30% stenosis with mild 10% luminal irregularities The circumflex artery Dominant normal The right coronary artery Nondominant normal The NUNEZ ventriculogram reveals Normal 65% The left ventricular end-diastolic pressure 10 mmHg IMPRESSION Mild coronary disease as described above Normal ejection fraction Normal left ventricular end-diastolic pressure PLAN 1. Lipitor 40 mg p.o. daily 2. Bisoprolol 10 mg p.o. daily 3. Aspirin 81 mg daily 4. Aggressive risk factor modification 5. Immediate discontinuation of Adipex 6. Follow-up in 1 week with plans to possibly increase bisoprolol if relative tachycardia persists Electronically signed by : Reno Allred MD 03/21/2022 12:32:30
--- NOTE | 2022-03-21 10:56 | EXP.CARD.PN ---
Subjective Subjective Date: 03/21/22 Time: 09:00 Principal diagnosis: CP, abnormal CTA coronary arteries Interval history: This is a 37-year-old white female who presented to the emergency department complaints of chest pain. She had been in the emergency department the day before with similar complaints as well. The patient had been taking Adipex and she started feeling weird after the first dose. On Saturday her symptoms significantly worsened with shortness of breath and dizziness. She came to the emergency department on Saturday and was discharged. She represented to the emergency department yesterday with chest pain in addition to the shortness of breath and dizziness. She states that she had a sharp left-sided sensation that radiated to her neck and down her left arm. It is associated with shortness of breath and dizziness. She states that this was a severe 10 out of 10 pain. It only lasted for a minute and then resolved. She states she felt funny afterwards and felt like she was going to pass out and was short of breath and dizzy again and came back to the emergency department. Patient did have an EKG showing some inferior ST depression. The patient ruled out for an AL. She was set up for coronary artery CTA which was abnormal. This showed at least 60% stenosis of the LAD with soft and hard plaque both. Through the night the patient had some pain in her left shoulder area. She states that she has been short of breath and dizzy intermittently as well. She denies any fever, chills, nausea, vomiting, diarrhea, PND orthopnea. She denies any lower extremity edema. The patient is a former tobacco user and her mom had coronary artery bypass grafting at the age of 50. Exam Data for Last 24 hours Vital signs and Labs for Last 24 Hours: Temp Pulse Resp BP Pulse Ox 98.2 F 88 16 127/73 99 03/21/22 07:51 03/21/22 07:51 03/21/22 07:51 03/21/22 07:51 03/21/22 07:51 Laboratory Results - last 24 hr 03/20/22 12:18: WBC 7.7, RBC 5.25, Hgb 14.6, Hct 44.3, MCV 84.4, MCH 27.9, MCHC 33.0, RDW 12.7, Plt Count 257, MPV 9.1, Neut % (Auto) 64.9, Lymph % (Auto) 27.7, [place] % (Auto) 4.6, Eos % (Auto) 1.4, Baso % (Auto) 1.4, Neut # (Auto) 5.0, Lymph # (Auto) 2.1, [place] # (Auto) 0.4, Eos # (Auto) 0.1, Baso # (Auto) 0.1 03/20/22 12:18: PT 12.2, INR 1.14 H 03/20/22 12:18: Sodium 140, Potassium 3.7, Chloride 102, Carbon Dioxide 26, Anion Gap 15.7 H, BUN 10 D, Creatinine 0.70, Estimated GFR 93, Est GFR ( Amer) 113, Glucose 98, Calcium 9.4, Total Bilirubin 0.5, AST 26, ALT 21, Alkaline Phosphatase 94, Troponin I < 0.01, Total Protein 7.9, Albumin 4.7, Globulin 3.2, Albumin/Globulin Ratio 1.5 03/20/22 16:00: Troponin I < 0.01 03/20/22 16:55: SARS-CoV-2 (PCR) Not detected, Influenza A Untype (PCR) Not detected, Influenza Type B (PCR) Not detected I & O for Last 24 hours: Intake & Output 03/18/22 03/19/22 03/20/22 03/21/22 23:59 23:59 23:59 23:59 Weight 182 lb 5 oz 182 lb Radiology Reports for the Last 24 Hours: CTA of the coronary arteries was read by Dr. Davalos at [facility]. This showed at least 60% stenosis of the LAD with both hard and soft plaque. The right coronary artery and circumflex arteries appeared free of disease. This is a high risk lesion noted to the LAD. Narrative: Telemetry strip shows sinus rhythm with a rate of 95 bpm. Constitutional Constitutional: no acute distress and average body habitus *Routine HEENT Exam Head: Present normocephalic and atraumatic ENT: Present mucous membranes moist *Routine Neck Exam Neck: Present supple, full ROM and normal carotid upstroke; Absent JVD, carotid bruit or lymphadenopathy *Routine Respiratory Exam Respiratory: Present CTA bilaterally, normal respiratory effort, able to speak in complete sentences and symmetric chest movement *Routine Cardiovascular Exam Cardiovascular: Present RRR, Normal S1, Normal S2 and tachycardia; Absent murmur or gallop *Routine Abdominal Exam A
--- NOTE | 2022-03-21 15:10 | EXP.DC.SUM ---
General Admission date:: 03/20/22 Discharge date: 03/21/22 HPI HPI HPI: 37-year-old female with family history of coronary disease who over the past several days has had increasing problems with shortness of air, some symptoms of chest pain. 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 This has seemed to accelerate her symptoms and she came to the emergency department for pain. Yesterday she was in the ER, had an evaluation for PE which was negative, other labs were unremarkable, on the day of admission she had a CT coronary angiogram which revealed a 60% single-vessel lesion and she was admitted to hospital for further evaluation and plans for left heart cath. Hospital Course Hospital Course Hospital Course: Patient was admitted, subjected to left heart cath today which showed small irregularities/10 to 30% lesions, not amenable to stenting. Diagnosis of early CAD was made. See cardiology instructions. Patient we discharged home, follow-up in our office in the next 7 to 10 days. Exam Data for Last 24 hours Vital signs and Labs for Last 24 Hours: Temp Pulse Resp BP Pulse Ox 98.2 F 76 16 117/73 99 03/21/22 07:51 03/21/22 12:45 03/21/22 12:45 03/21/22 12:45 03/21/22 12:45 Laboratory Results - last 24 hr 03/20/22 16:00: Troponin I < 0.01 03/20/22 16:55: SARS-CoV-2 (PCR) Not detected, Influenza A Untype (PCR) Not detected, Influenza Type B (PCR) Not detected I & O for Last 24 hours: Intake & Output 03/19/22 03/20/22 03/21/22 03/22/22 11:59 11:59 11:59 11:59 Weight 182 lb Constitutional Constitutional: no acute distress *Routine HEENT Exam Head: Present normocephalic Eye: Present EOMI and PERRL ENT: Present mucous membranes moist *Routine Neck Exam Neck: Present supple; Absent lymphadenopathy *Routine Respiratory Exam Respiratory: Present CTA bilaterally *Routine Cardiovascular Exam Cardiovascular: Present RRR *Routine Abdominal Exam Abdominal: Present soft and normoactive bowel sounds; Absent tenderness *Routine Extremities Exam Extremities: Absent cyanosis, clubbing or edema *Routine Skin Exam Skin: Present warm; Absent rash *Routine Neurological Exam Neurological: Present alert and oriented X3 Results Data Completed and Pending Labs on day of discharge: Labs from last 24 hours 03/20/22 03/20/22 16:55 16:00 Troponin I < 0.01 SARS-CoV-2 (PCR) Not detected Influenza A Untype (PCR) Not detected Influenza Type B (PCR) Not detected DS: Diagnosis Discharge Diagnosis (1) Angina pectoris: Status: Acute (2) Abnormal cardiac CT angiography: Status: Acute (3) Abnormal electrocardiogram [ECG] [EKG]: Status: Acute (4) Sinus tachycardia: Status: Acute (5) Family history of ischemic heart disease: Status: Acute (6) Former smoker: Status: Acute (7) Shortness of breath: Status: Acute (8) Coronary atherosclerosis of hopi coronary artery: Status: Acute Meds Home Medications and Allergies Home Medications Medication Instructions Recorded Confirmed Type levonorgestrel 20 mcg/24 hours (8 1 device intrauterine DIRECTED 03/13/22 03/20/22 History yrs) 52 mg intrauterine device control (Mirena) aspirin 81 mg tablet 81 mg PO HS Pain 03/20/22 03/20/22 History atorvastatin 40 mg tablet 40 mg PO HS #90 tabs 03/21/22 Rx New Prescriptions to Start Prescriptions: atorvastatin Angelito Medeiros Allergies Allergy/AdvReac Type Severity Reaction Status Date / Time No Known Allergies Allergy Verified 03/13/22 08:54 Discharge Plan Disposition Patient Disposition: Home, Self-Care Condition: Good Follow up Plan Follow up with: Angelito Medeiros MD [Primary Care Provider] - 2 weeks Prescriptions/Medication Reconciliation: New atorvastatin 40 mg tablet 40 mg PO HS Qty: 90 0RF Continued Mirena
--- NOTE | 2022-03-21 15:20 | P.CONPHA_ITS ---
Pharmacy Intervention Comments: Discharge counseling completed at bedside with the patient. Discussed new medication (atorvastatin), continued medications, and discontinued medication (phentermine). Overviewed the indication and possible side effects/mitigation strategies of atorvastatin. Patient verbalized understanding and has no q uestions or concerns at this time.
--- NOTE | 2022-03-21 16:16 | PC.NURSE ---
PT READY FOR DC, WAITING TO REMOVE WRISTLET ON RT WRIST
--- NOTE | 2022-03-22 13:59 | CARE MANAGER ---
Called and spoke with Rossana, regarding discharge status. Patient states that she is doing well, continues to have some left arm and side pain but it is no different than while she was here. She is aware of her f/u appointments and has started her new medication prescribed at discharge. No complaints or concerns at time of call.
== END 2022-03-21 18:15 | disposition home or self-care (01) ==
LOC: ER 17:23 → 2ND 18:23
PROVIDERS: Internal Medicine; Admitting Provider Internal Medicine Adolescent Medicine; Emergency Provider Emergency Medicine; PCP Internal Medicine Adolescent Medicine; Visit Provider Internal Medicine Adolescent Medicine
DX: R07.9 Chest pain, unspecified (principal); I25.110 Atherosclerotic heart disease of native coronary artery with unstable angina pectoris; Z82.49 Family history of ischemic heart disease and other diseases of the circulatory system; Z87.891 Personal history of nicotine dependence
CPT/HCPCS: 36415; 71045; 75574; 80053; 84484; 85025; 85610; 93005; 93306; 93458; 99152; 99285; C1725; C1769; C9803; G0378; J1644; Q9967; U0003; U0005

== ENCOUNTER → 2022-05-08 15:54 | Outpatient (CLI) | payer BC, SELFPAY ==
--- NOTE | 2022-05-08 15:59 | XR_ITS ---
PROCEDURE INFORMATION: Exam: XR Cervical Spine Exam date and time: 05/08/2022 4:11 PM Age: 37 years old Clinical indication: Neck pain TECHNIQUE: Imaging protocol: Radiologic exam of the cervical spine. Views: 4 or 5 views. COMPARISON: CR XR CHEST PORTABLE 03/20/2022 12:44 PM FINDINGS: Bones/joints: Vertebral alignment is maintained. There is preservation of vertebral body heights. No visible fracture. Interpedicular distances are maintained. Odontoid process is intact. Atlantoaxial interval is maintained. Soft tissues: Unremarkable. IMPRESSION: No acute fracture. No traumatic subluxation.
== END ==
LOC: RAD 15:55
PROVIDERS: PCP Nurse Practitioner Family; Visit Provider Nurse Practitioner Family
DX: M54.2 Cervicalgia (principal)
CPT/HCPCS: 72050

== ENCOUNTER → 2022-07-17 07:40 | Outpatient (CLI) | payer BC, SELFPAY ==
--- NOTE | 2022-07-17 07:46 | CT_ITS ---
FINAL REPORT TECHNIQUE: Pre-and postcontrast images of the abdomen were performed by computed tomography. Extensive 3-D reconstruction images were performed. A CTA was performed. This study was performed with techniques to keep radiation doses as low as reasonably achievable (ALARA). Individualized dose reduction techniques using automated exposure control or adjustment of mA and/or kV according to the patient''s size were employed. CLINICAL HISTORY: RT SIDED ABDOMEN PAIN FINDINGS: ABDOMEN: The lung bases are clear. Precontrast images demonstrate no evidence of nephrolithiasis. No adrenal masses are identified. The liver, spleen and pancreas are unremarkable. The patient is status post cholecystectomy. There are multiple fluid-filled small bowel loops in a nonspecific pattern, may represent enteritis. An IUD seen in the uterus. There are small ovarian cyst. CTA: The abdominal aorta is proper caliber. The SMA, celiac axis, and ELLE are patent. There is no significant stenosis or calcification. The renal arteries are patent bilaterally. IMPRESSION: No evidence of renal vascular hypertension or significant renal artery stenosis. Findings may represent enteritis. Reviewed, Interpreted and Dictated by Luis Montaño III, MD Transcribed by Lucrecia Watts Authenticated and [facility]
== END ==
PROVIDERS: PCP Nurse Practitioner Family; Visit Provider Physician Assistant
DX: R10.30 Lower abdominal pain, unspecified (principal)
CPT/HCPCS: 74175; Q9967

== ENCOUNTER 2022-07-18 16:51 | Emergency (ER) | payer BC, SELFPAY ==
[2022-07-18 18:00] VITALS: BP 138/86; PULSE 96; RESP 20; TEMP 37.1; O2SAT 96; BMI 30.4
--- NOTE | 2022-07-18 18:09 | EXP.UTC ---
Discharge Plan Disposition Patient Disposition: Home, Self-Care Condition: Good Prescriptions Prescriptions: New prednisone [prednisone] 20 mg tablet 20 mg PO BID 3 Days Qty: 6 0RF amoxicillin [amoxicillin] 875 mg tablet 875 mg PO Q12H Qty: 20 0RF benzonatate [benzonatate] 100 mg capsule 100 mg PO TIDP PRN (Reason: Cough) Qty: 30 0RF No Action bisoprolol fumarate 5 mg tablet 5 mg PO DAILY Qty: 30 2RF Mirena 20 mcg/24 hours (8 yrs) 52 mg intrauterine device 1 device intrauterine DIRECTED aspirin 81 mg Tablet 81 mg PO HS atorvastatin 40 mg tablet 40 mg PO HS Qty: 90 0RF Referrals Follow up/Referrals: Cata Love APRN [Primary Care Provider] - See instructions Activity Restrictions/Add. Instructions Additional Instructions/Restrictions: Drink plenty of fluids. Take tylenol or ibuprofen for pain or fever. Take the medications as directed. Follow up with your regular doctor. GO TO THE ER FOR ANY WORSENING SYMPTOMS Throw your tooth brush away and get a new one. Clinical Impressions Clinical Impression: Strep throat Stand Alone Forms Stand Alone Forms: Work/School Release Instructions Patient Instructions: Strep Throat, DI for Strep Throat Discharge ED Provider: Popeye Villatoro [facility] [place] HPI General Stated complaint: sore throat, OCONNOR jasmeet Time Seen by Provider: 07/18/22 18:09 History of Present Illness Provider Complaint: She states that for the past 2 days she has had a worsening sore throat. 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 Related Data Home Medications Medication Instructions Recorded Confirmed levonorgestrel 21 mcg/24 hours (8 1 device intrauterine DIRECTED 03/13/22 04/05/22 yrs) 52 mg intrauterine device control (Mirena) aspirin 81 mg tablet 81 mg PO HS Pain 03/20/22 04/05/22 Previous Rx's Medication Instructions Recorded atorvastatin 40 mg tablet 40 mg PO HS #90 tabs 03/21/22 bisoprolol fumarate 5 mg tablet 5 mg PO DAILY #30 tabs 04/05/22 amoxicillin 875 mg tablet 875 mg PO Q12H #20 tabs 07/18/22 benzonatate 100 mg capsule 100 mg PO TIDP PRN Cough #30 caps 07/18/22 prednisone 20 mg tablet 20 mg PO BID 3 days #6 tabs 07/18/22 Allergies Allergy/AdvReac Type Severity Reaction Status Date / Time No Known Allergies Allergy Verified 07/18/22 18:21 [facility] Disclaimer: The information contained in this section may have been updated after the patient was seen, as this information can be updated by other users. Medical History Abnormal cardiac CT angiography Abnormal electrocardiogram [ECG] [EKG] Acid reflux Angina pectoris Chest pain Family history of ischemic heart disease Former smoker Gastroenteritis Sinus tachycardia Surgical History H/O LEEP History of section Family History Other Family history of hyperlipidemia Family history of hypertension Family history of myocardial infarction Social History Smoking Status: Never smoker alcohol intake: never substance use type: denies use current occupational status: other Travel in the last 8 weeks: Inside the [place] household members: spouse and children housing: house ROS Obtained: Yes All systems reviewed & no additional complaints except as documented Constitutional Constitutional: Reports chills and Reports fever(s) Eyes Eyes: Denies eye discharge ENT Ears, Nose, Mouth, and Throat: Reports as per HPI Cardiovascular Cardiovascular: Denies chest pain Respiratory Respiratory: Denies chest congestion and Reports cough Gastrointestinal Gastrointestingal: Reports nausea; Denies abdominal pain, constipation, cramping, diarrhea or vomiting Musculoskeletal Musculoskeletal: Denies arthralgias Integumentary/Aminata
[2022-07-18 18:26] LABS: UTC Strep Screen (Rapid) Positive (Negative)
[2022-07-18 18:53] VITALS: BP 138/86; PULSE 96; RESP 20; TEMP 37.1; O2SAT 100
== END 2022-07-18 18:53 | disposition home or self-care (01) ==
PROVIDERS: Emergency Provider Nurse Practitioner Family; PCP Nurse Practitioner Family
DX: J02.0 Streptococcal pharyngitis (principal); R11.0 Nausea; R50.9 Fever, unspecified
CPT/HCPCS: 87880; 99212; 99214; G0463

== ENCOUNTER → 2022-07-28 08:34 | Outpatient (CLI) | payer BC, SELFPAY ==
[2022-07-28 09:56] LABS: Basophils # 0.1 K/mm3 (0-0.2); Basophils % 1.1 % (0.1-2.0); Eosinophils # 0.1 K/mm3 (0.0-0.4); Eosinophils % 1.3 % (0.1-12.0); Hematocrit 43.3 % (37.0-47.0); Hemoglobin 13.8 g/dL (12.2-16.2); Lymphocytes # 1.9 K/mm3 (0.7-4.5); Lymphocytes % 29.6 % (10-50); Mean Corpuscular HGB Conc 31.9 g/dL (31.8-35.4); Mean Corpuscular Hemoglobin 26.9 pg (27.0-31.2); Mean Corpuscular Volume 84.3 fl (81-99); Mean Platelet Volume 8.7 fl (7.4-10.4); Monocytes # 0.4 K/mm3 (0.1-1.0); Monocytes % 6.3 % (1.7-9.3); Neutrophils % 61.8 % (37.0-80.0); Platelet Count 275 K/mm3 (142-424); Red Blood Count 5.13 M/mm3 (4.20-5.40); Red Cell Distribution Width 12.9 % (11.5-17.5); White Blood Count 6.4 K/mm3 (4.8-10.8)
[2022-07-28 10:07] LABS: Alanine Aminotransferase 23 U/L (12-78); Albumin Level 4.3 g/dl (3.5-5.0); Alkaline Phosphatase 92 U/L (38-126); Aspartate Amino Transferase 24 U/L (14-36); Bilirubin,Direct 0.3 mg/dl (0.0-0.4); Bilirubin,Indirect 0.2 mg/dL (0.0-0.9); Bilirubin,Total 0.5 mg/dl (0.2-1.3); Bilirubin,Unconjugated 0.2 mg/dL (0.0-1.1); Glucose,Random 95 mg/dL (74-100); Total Protein,Serum 6.8 g/dl (6.3-8.2)
[2022-07-28 10:24] LABS: Free Thyroxine Index 2.4 ug/dL (5.93-13.13); T4 (Thyroxine) 8.8 ug/dl (5.53-11.0); Triiodothryronine (T3) Uptake 27 % (23.5-40.5)
[2022-07-28 10:29] LABS: Hemoglobin A1C 5.7 % (4.0-6.0)
[2022-07-28 10:38] LABS: Thyroid Stimulating Hormone 1.69 uIU/mL (0.465-4.68)
[2022-07-29 08:00] LABS: Estradiol 26.3 pg/mL (.); FSH 8.2 mIU/mL (.); LH 7.1 mIU/mL (.)
[2022-07-30 15:49] LABS: Insulin Level Total 14.5 uIU/mL (2.6-24.9)
== END ==
LOC: LAB 08:35
PROVIDERS: PCP Internal Medicine Adolescent Medicine; Visit Provider Nurse Practitioner Obstetrics & Gynecology
DX: R53.83 Other fatigue (principal)
CPT/HCPCS: 36415; 80076; 82533; 82670; 82947; 83001; 83002; 83036; 83525; 84436; 84443; 84479; 85025

== ENCOUNTER → 2022-08-02 16:29 | Outpatient (CLI) | payer BC, SELFPAY ==
[2022-08-04 08:54] LABS: Progesterone 0.1 ng/mL (.); Testosterone,Total <3 ng/dL (8-60)
== END ==
LOC: LAB 16:29
PROVIDERS: PCP Internal Medicine Adolescent Medicine; Visit Provider Nurse Practitioner Obstetrics & Gynecology
DX: E34.9 Endocrine disorder, unspecified (principal)
CPT/HCPCS: 36415; 84144; 84403

== ENCOUNTER 2022-08-02 19:22 | Emergency (ER) | payer BC, SELFPAY ==
--- NOTE | 2022-08-02 19:28 | EXP.UTC ---
Discharge Plan Disposition Patient Disposition: Home, Self-Care Condition: Good Prescriptions Prescriptions: New azithromycin [Zithromax] 250 mg tablet 250 mg PO UD DOSE PK Qty: 6 0RF Rx Instructions: Take two (2) tablets today, then one (1) tablet days #2 thru #5 methylprednisolone 4 mg Tablets,Dose Pack 4 mg PO DIRECTED Qty: 21 0RF No Action bisoprolol fumarate 5 mg tablet 5 mg PO DAILY Qty: 30 2RF Mirena 20 mcg/24 hours (8 yrs) 52 mg intrauterine device 1 device intrauterine DIRECTED aspirin 81 mg Tablet 81 mg PO HS atorvastatin 40 mg tablet 40 mg PO HS Qty: 90 0RF prednisone [prednisone] 20 mg tablet 20 mg PO BID 3 Days Qty: 6 0RF amoxicillin [amoxicillin] 875 mg tablet 875 mg PO Q12H Qty: 20 0RF benzonatate [benzonatate] 100 mg capsule 100 mg PO TIDP PRN (Reason: Cough) Qty: 30 0RF Referrals Follow up/Referrals: Angelito Medeiros MD [Primary Care Provider] - See instructions Activity Restrictions/Add. Instructions Additional Instructions/Restrictions: Drink plenty of fluids. Take tylenol or ibuprofen for pain or fever. Take the medications as directed. Follow up with your regular doctor. GO TO THE ER FOR ANY WORSENING SYMPTOMS Throw your tooth brush away and get a new one. Clinical Impressions Clinical Impression: Strep throat Stand Alone Forms Stand Alone Forms: Work/School Release Instructions Patient Instructions: DI for Strep Throat, Strep Throat Discharge ED Provider: Popeye Villatoro [facility] [place] HPI General Stated complaint: SORE THROAT,OCONNOR Time Seen by Provider: 08/02/22 19:28 History of Present Illness Provider Complaint: She states that as soon as she finished her antibiotics her sore throat came back. Related Data Home Medications Medication Instructions Recorded Confirmed levonorgestrel 21 mcg/24 hours (8 1 device intrauterine DIRECTED 03/13/22 04/05/22 yrs) 52 mg intrauterine device control (Mirena) aspirin 81 mg tablet 81 mg PO HS Pain 03/20/22 04/05/22 Previous Rx's Medication Instructions Recorded atorvastatin 40 mg tablet 40 mg PO HS #90 tabs 03/21/22 bisoprolol fumarate 5 mg tablet 5 mg PO DAILY #30 tabs 04/05/22 amoxicillin 875 mg tablet 875 mg PO Q12H #20 tabs 07/18/22 benzonatate 100 mg capsule 100 mg PO TIDP PRN Cough #30 caps 07/18/22 prednisone 20 mg tablet 20 mg PO BID 3 days #6 tabs 07/18/22 azithromycin 250 mg tablet 250 mg PO UD DOSE PK #6 tabs 08/02/22 (Zithromax) methylprednisolone 4 mg tablets in 4 mg PO DIRECTED #21 tabs 08/02/22 a dose pack Allergies Allergy/AdvReac Type Severity Reaction Status Date / Time No Known Allergies Allergy Verified 08/02/22 19:38 [facility] Disclaimer: The information contained in this section may have been updated after the patient was seen, as this information can be updated by other users. Medical History Abnormal cardiac CT angiography Abnormal electrocardiogram [ECG] [EKG] Acid reflux Angina pectoris Chest pain Family history of ischemic heart disease Former smoker Gastroenteritis Sinus tachycardia Surgical History H/O LEEP History of section Family History Other Family history of hyperlipidemia Family history of hypertension Family history of myocardial infarction Social History Smoking Status: Never smoker alcohol intake: never substance use type: denies use current occupational status: other Travel in the last 8 weeks: Inside the [place] household members: spouse and children housing: house ROS Obtained: Yes All systems reviewed & no additional complaints except as documented Constitutional Constitutional: Reports chills and Reports fever(s) Eyes Eyes: Den
[2022-08-02 19:36] VITALS: BP 149/100; PULSE 93; RESP 16; TEMP 36.7; O2SAT 100; BMI 30.4
[2022-08-02 19:40] LABS: UTC Strep Screen (Rapid) Negative (Negative)
[2022-08-02 19:55] VITALS: BP 149/100; PULSE 93; RESP 16; TEMP 36.7
== END 2022-08-02 19:58 | disposition home or self-care (01) ==
PROVIDERS: Emergency Provider Nurse Practitioner Family; PCP Internal Medicine Adolescent Medicine
DX: J02.0 Streptococcal pharyngitis (principal); R51.9 Headache, unspecified; R50.9 Fever, unspecified
CPT/HCPCS: 87880; 99212; 99214; G0463

== ENCOUNTER → 2022-09-25 09:51 | Outpatient (CLI) | payer BC, SELFPAY ==
--- NOTE | 2022-09-25 09:54 | US_ITS ---
FINAL REPORT CLINICAL HISTORY: pelvic pain FINDINGS: Transvaginal Ultrasound Technique: Transvaginal sonographic images of the pelvis were obtained. Findings: The uterus is normal in size. An IUD is present. The endometrium measures 6 mm which is within normal limits. There is a 2 cm left ovarian cyst. There are questionable small calcifications in the right ovary. There is no free fluid. IMPRESSION: 2 cm left ovarian cyst. Questionable small calcifications in the right ovary. IUD in place. Reviewed, Interpreted and Dictated by Luis Montaño III, MD Transcribed by Mitul Laboy Authenticated and [facility]
== END ==
PROVIDERS: PCP Internal Medicine Adolescent Medicine; Visit Provider Nurse Practitioner Obstetrics & Gynecology
DX: R10.2 Pelvic and perineal pain (principal)
CPT/HCPCS: 76830

== ENCOUNTER → 2022-11-07 07:58 | Outpatient (CLI) | payer BC, SELFPAY ==
--- NOTE | 2022-11-07 07:59 | MR_ITS ---
FINAL REPORT CLINICAL HISTORY: Aneurysm versus stenosis left sided head pain and neck pain x 1 month COMPARISON: None FINDINGS: Multiple projection images of the neck arterial vasculature were obtained without contrast. The raw data images were also reviewed. The right common carotid artery has an unremarkable appearance without evidence of stenosis or occlusion. The right internal carotid artery has an unremarkable appearance without evidence of stenosis or occlusion. The right external carotid artery is patent. The right vertebral artery is patent without evidence of stenosis. The left common carotid artery has an unremarkable appearance without evidence of stenosis or occlusion. The left internal carotid artery is patent without evidence of stenosis or occlusion. The left external carotid artery is patent. The left vertebral artery is patent without evidence of stenosis. IMPRESSION: Unremarkable MR angiogram of the neck without evidence of stenosis or occlusion. Reviewed, Interpreted and Dictated by Luis Montaño III, MD Transcribed by Pilar Ríos Authenticated and [facility]
--- NOTE | 2022-11-07 07:59 | MR_ITS ---
FINAL REPORT CLINICAL HISTORY: eval for aneurysm left sided head pain and neck pain x 1 month COMPARISON: None FINDINGS: Multiple projection images of the brain arterial vasculature were obtained without contrast. The raw data images were also reviewed. The distal internal carotid, distal vertebral and basilar arteries have an unremarkable appearance without evidence of significant stenosis or occlusion. The proximal anterior, middle and posterior cerebral arteries have an unremarkable appearance. There is no evidence of significant stenosis or major branch occlusion. No aneurysm or vascular malformation is identified. IMPRESSION: Unremarkable MR angiogram of the head. Reviewed, Interpreted and Dictated by Luis Montaño III, MD Transcribed by Pilar Ríos Authenticated and . [facility]
--- NOTE | 2022-11-07 07:59 | MR_ITS ---
FINAL REPORT CLINICAL HISTORY: neck pain, N/T left sided pain in head and neck x 1 month COMPARISON: None FINDINGS: Multiplanar MR imaging of the cervical spine was performed without contrast. On the sagittal T2-weighted images, disc degeneration is seen at multiple levels. There is no evidence of fracture. The vertebral alignment is normal. The cervical spinal cord has an unremarkable appearance without evidence of mass, edema or syrinx. No significant canal stenosis is identified. The cervicomedullary junction is normal. C2-3: There is no significant canal stenosis or neural foraminal narrowing. C3-4: There is no significant canal stenosis or neural foraminal narrowing. C4-5: There is no significant canal stenosis or neural foraminal narrowing. C5-6: Annular disc bulge. There is no significant canal stenosis or neural foraminal narrowing. C6-7: There is no significant canal stenosis or neural foraminal narrowing. C7-T1: There is no significant canal stenosis or neural foraminal narrowing. IMPRESSION: Multilevel disc degeneration with bulge at C5-6. Reviewed, Interpreted and Dictated by Luis Montaño III, MD Transcribed by Pilar Ríos Authenticated and . [facility]
== END ==
LOC: RAD 07:59
PROVIDERS: PCP Internal Medicine Adolescent Medicine; Visit Provider Nurse Practitioner Family
DX: M54.2 Cervicalgia (principal); R20.0 Anesthesia of skin; R20.2 Paresthesia of skin; R29.898 Other symptoms and signs involving the musculoskeletal system; R93.89 Abnormal findings on diagnostic imaging of other specified body structures
CPT/HCPCS: 70544; 70547; 72141; 76376

== ENCOUNTER → 2022-11-07 09:31 | Outpatient (CLI) | payer BC, SELFPAY ==
[2022-11-07 11:17] LABS: Vitamin B12 347 pg/mL (239-931)
== END ==
PROVIDERS: PCP Internal Medicine Adolescent Medicine; Visit Provider Nurse Practitioner Family
DX: R20.0 Anesthesia of skin (principal)
CPT/HCPCS: 36415; 82607

== ENCOUNTER → 2023-03-29 10:13 | Outpatient (CLI) | payer BC, SELFPAY ==
--- NOTE | 2023-03-29 10:13 | MM_ITS ---
PROCEDURE INFORMATION: Exam: MG Bilateral Screening 3D Mammography Exam date and time: 03/29/2023 10:15 AM Age: 38 years old Clinical indication: Screening examination TECHNIQUE: Imaging protocol: Bilateral Screening tomosynthesis and 2D mammography including computer-aided detection (CAD) when performed. COMPARISON: 1. MG MM DIG MAMM DX UNILAT RT CAD 02/12/2022 1:58 PM 2. US BREAST RT COMPLETE 02/12/2022 2:19 PM FINDINGS: MAMMOGRAPHY: Breast composition: There are scattered areas of fibroglandular density. Mass: 0.4 cm mass in the anterior third of the left central breast Architectural distortion: None. Calcifications: No suspicious calcifications. Asymmetric density: None. Skin thickening: None. Axillary adenopathy: None. IMPRESSION: Patient to be recalled for spot compression views of the left breast in the CC and MLO projections, a full 90 degree lateral view, and left breast ultrasound for further evaluation of a left breast mass. ASSESSMENT: BI-RADS Category 0: Incomplete- Need Additional Imaging Evaluation and/or Prior Mammograms for Comparison
== END ==
PROVIDERS: PCP Internal Medicine Adolescent Medicine; Visit Provider Obstetrics & Gynecology
DX: Z12.31 Encounter for screening mammogram for malignant neoplasm of breast (principal)
CPT/HCPCS: 77063; 77067

== ENCOUNTER → 2023-04-10 07:28 | Outpatient (CLI) | payer BC, SELFPAY ==
[2023-04-10 08:02] LABS: Basophils # 0.1 K/mm3 (0-0.2); Basophils % 0.6 % (0.1-2.0); Eosinophils # 0.1 K/mm3 (0.0-0.4); Eosinophils % 1.5 % (0.1-12.0); Hematocrit 43.1 % (37.0-47.0); Hemoglobin 13.9 g/dL (12.2-16.2); Lymphocytes # 1.9 K/mm3 (0.7-4.5); Lymphocytes % 23.9 % (10-50); Mean Corpuscular HGB Conc 32.4 g/dL (31.8-35.4); Mean Corpuscular Hemoglobin 27.8 pg (27.0-31.2); Mean Platelet Volume 8.7 fl (7.4-10.4); Monocytes # 0.4 K/mm3 (0.1-1.0); Monocytes % 5.4 % (1.7-9.3); Neutrophils # 5.4 K/mm3 (1.8-7.8); Neutrophils % 68.6 % (37.0-80.0); Platelet Count 242 K/mm3 (142-424); Red Blood Count 5.01 M/mm3 (4.20-5.40); Red Cell Distribution Width 13.2 % (11.5-17.5); White Blood Count 7.9 K/mm3 (4.8-10.8)
[2023-04-10 08:22] LABS: Chloride 106 mmol/L (98-107); Potassium 4.4 mmoL/L (3.5-5.1); Sodium 140 mmol/L (136-145)
[2023-04-10 08:24] LABS: Alanine Aminotransferase 25 U/L (12-78); Blood Urea Nitrogen 20 mg/dl (7-17); Estimated Glomerular Filt Rate 69 ml/min (>60); GFR (African American) 84 ML/MIN (>60)
[2023-04-10 08:25] LABS: Albumin Level 4.5 g/dl (3.5-5.0); Albumin/Globulin Ratio 1.7 (1.1-1.8); Alkaline Phosphatase 106 U/L (38-126); Anion Gap 13.4 mEq/L (5-15); Aspartate Amino Transferase 25 U/L (14-36); Bilirubin,Total 0.3 mg/dl (0.2-1.3); Calcium 8.9 mg/dl (8.4-10.2); Carbon Dioxide 25 mmol/L (22.0-30.0); Chol/HDL Ratio 2.6 (1-3.5); Cholesterol 102 mg/dl (140-200); Globulin 2.7 g/dL (1.3-3.2); Glucose 98 mg/dl (74-100); HDL Cholesterol 39 mg/dl (40-60); Total Protein,Serum 7.2 g/dl (6.3-8.2); Triglycerides 99 mg/dl (30-150); VLDL Cholesterol 20 mg/dL (0-40)
[2023-04-10 08:36] LABS: Direct LDL Cholesterol 53.94 mg/dL (100-129)
[2023-04-10 08:42] LABS: Free T4 (Free Thyroxine) 0.85 ng/dl (0.78-2.19)
[2023-04-10 11:03] LABS: Thyroid Stimulating Hormone 2.08 uIU/mL (0.465-4.68)
== END ==
PROVIDERS: PCP Internal Medicine Adolescent Medicine; Visit Provider Emergency Medicine
DX: R00.2 Palpitations (principal); E78.00 Pure hypercholesterolemia, unspecified; Z79.899 Other long term (current) drug therapy
CPT/HCPCS: 36415; 80053; 80061; 84439; 84443; 85025

== ENCOUNTER → 2023-04-10 10:53 | Outpatient (CLI) | payer BC, SELFPAY ==
--- NOTE | 2023-04-10 10:54 | US_ITS ---
PROCEDURE INFORMATION: Exam: US Left Breast, Complete Exam date and time: 04/10/2023 10:58 AM Age: 38 years old Clinical indication: Patient recalled for further evaluation of a left breast mass TECHNIQUE: Imaging protocol: Complete ultrasound of all four quadrants of the left breast and the retroareolar regions, including ultrasound of the axilla when performed. COMPARISON: MG MM DIG SCREENING MAMM BI W/CAD 03/29/2023 10:15 AM FINDINGS: Breast: Sonographic images of the left breast including the retroareolar region, all 4 quadrants and the axilla do not demonstrate any solid masses. 0.4 cm cyst in the deep left 11 o'clock axis 2 cm from the nipple most closely corresponds to the mass on mammography. No architectural distortion or acoustical shadowing. No skin thickening or axillary adenopathy. IMPRESSION: Mass on screening mammography corresponds to underlying cystic change sonographically. There is no mammographic evidence of malignancy.Annual bilateral mammographic screening is recommended unless otherwise clinically indicated. ASSESSMENT: BI-RADS Category 2: Benign
== END ==
LOC: RAD 10:54
PROVIDERS: PCP Internal Medicine Adolescent Medicine; Visit Provider Obstetrics & Gynecology
DX: N63.20 Unspecified lump in the left breast, unspecified quadrant (principal)
CPT/HCPCS: 76641

== ENCOUNTER 2023-06-27 16:15 | Outpatient (CLI) | payer BC, SELFPAY ==
[2023-06-28 10:20] LABS: Coronavirus 19, PCR Not Detected (NotDetected); Influenza A, PCR Not Detected (NotDetected); Influenza B, PCR Not Detected (NotDetected)
== END 2023-06-27 23:59 ==
LOC: LAB.DROPOF 06-28 10:21
PROVIDERS: PCP Internal Medicine; Visit Provider Internal Medicine
DX: R07.9 Chest pain, unspecified (principal); R42 Dizziness and giddiness; K30 Functional dyspepsia; R51.9 Headache, unspecified
CPT/HCPCS: 87636

== ENCOUNTER 2023-06-27 16:22 | Outpatient (CLI) | payer BC, SELFPAY ==
--- NOTE | 2023-06-27 16:34 | ECG_ITS ---
APPROVED REPORT Exam: Resting ECG HR:92 bpm ECG Measurements Heart Rate 92 AXES HI 133 P 58 QRSd 88 QRS 45 QT 321 T 29 QTc 370 Conclusion SINUS RHYTHM WITH SINUS ARRHYTHMIA LOW QRS VOLTAGE IN PRECORDIAL LEADS [QRS DEFLECTION < 1.0 mV IN CHEST LEADS] BORDERLINE ECG UNCONFIRMED REPORT Electronically signed by : Angelito Medeiros MD 06/28/2023 10:46:44
[2023-06-27 19:23] LABS: Troponin I < 0.01 ng/ml (0.00-0.034)
== END 2023-06-27 23:59 ==
LOC: RT 16:22
PROVIDERS: PCP Internal Medicine; Visit Provider Internal Medicine
DX: R20.0 Anesthesia of skin (principal); R07.9 Chest pain, unspecified
CPT/HCPCS: 84484; 93005

== ENCOUNTER 2023-06-27 20:06 | Emergency (ER) | payer BC, SELFPAY ==
--- NOTE | 2023-06-27 20:10 | ECG_ITS ---
APPROVED REPORT Exam: Resting ECG HR:93 bpm ECG Measurements Heart Rate 93 AXES TN 133 P 63 QRSd 90 QRS 31 QT 331 T 49 QTc 382 Conclusion SINUS RHYTHM LOW QRS VOLTAGE IN PRECORDIAL LEADS [QRS DEFLECTION < 1.0 mV IN CHEST LEADS] POSSIBLE RIGHT VENTRICULAR CONDUCTION DELAY [RSR (QR) IN V1/V2] BORDERLINE ECG UNCONFIRMED REPORT Electronically signed by : Angelito Medeiros MD 06/28/2023 10:45:44
--- NOTE | 2023-06-27 20:13 | XR_ITS ---
PROCEDURE INFORMATION: Exam: XR Chest Exam date and time: 06/27/2023 8:14 PM Age: 38 years old Clinical indication: Pain; Chest pressure; Additional info: Chest pain TECHNIQUE: Imaging protocol: Radiologic exam of the chest. Views: 1 view. COMPARISON: CR XR CHEST PORTABLE 03/20/2022 12:44 PM FINDINGS: Lungs: Unremarkable. No consolidation. Pleural spaces: Unremarkable. No pleural effusion. No pneumothorax. Heart/Mediastinum: Unremarkable. No cardiomegaly. Bones/joints: Unremarkable. IMPRESSION: No acute findings.
[2023-06-27 20:16] VITALS: BP 132/77; PULSE 75; RESP 15; TEMP 36.1; O2SAT 99; BMI 31.3
[2023-06-27] MEDS: ASPIRIN 81MG CHEWABLE TABLET 324 MG PO (20:17)
[2023-06-27 20:24] LABS: Basophils # 0.1 K/mm3 (0-0.2); Basophils % 0.4 % (0.1-2.0); Eosinophils # 0.1 K/mm3 (0.0-0.4); Eosinophils % 1.2 % (0.1-12.0); Hematocrit 42.5 % (37.0-47.0); Hemoglobin 13.5 g/dL (12.2-16.2); Lymphocytes # 2.6 K/mm3 (0.7-4.5); Lymphocytes % 24.2 % (10-50); Mean Corpuscular HGB Conc 31.8 g/dL (31.8-35.4); Mean Corpuscular Hemoglobin 27.8 pg (27.0-31.2); Mean Corpuscular Volume 87.5 fl (81-99); Mean Platelet Volume 8.4 fl (7.4-10.4); Monocytes # 0.5 K/mm3 (0.1-1.0); Monocytes % 4.8 % (1.7-9.3); Neutrophils # 7.4 K/mm3 (1.8-7.8); Neutrophils % 69.3 % (37.0-80.0); Platelet Count 251 K/mm3 (142-424); Red Blood Count 4.85 M/mm3 (4.20-5.40); Red Cell Distribution Width 13.2 % (11.5-17.5); White Blood Count 10.7 K/mm3 (4.8-10.8)
[2023-06-27 20:33] LABS: Anion Gap 8.8 mEq/L (5-15); Blood Urea Nitrogen 17 mg/dl (7-17); Calcium 9.1 mg/dl (8.4-10.2); Carbon Dioxide 31 mmol/L (22.0-30.0); Chloride 103 mmol/L (98-107); Creatinine Clearance Estimated 134 mL/min (50-200); Estimated Glomerular Filt Rate 79 ml/min (>60); GFR (African American) 96 ML/MIN (>60); Glucose 87 mg/dl (74-100); Potassium 3.8 mmoL/L (3.5-5.1); Sodium 139 mmol/L (136-145)
--- NOTE | 2023-06-27 20:43 | PC.NURSE ---
in room talking with patient at this time.
[2023-06-27 20:47] LABS: Troponin I < 0.01 ng/ml (0.00-0.034)
--- NOTE | 2023-06-27 21:14 | HMH.EDCP ---
Discharge Plan Disposition Patient Disposition: Home, Self-Care Condition: Good Chief Complaint: Chest Pain Prescriptions Prescriptions: No Action aspirin 81 mg tablet,chewable 81 mg PO .qod Ozempic 1 mg/dose (4 mg/3 mL) pen injector 1 mg SQ WEEKLY Qty: 3 0RF atorvastatin 40 mg tablet 40 mg PO HS Qty: 90 0RF omeprazole 20 mg capsule,delayed release(DR/EC) 20 mg PO DAILY Qty: 30 2RF Mirena 20 mcg/24 hours (8 yrs) 52 mg intrauterine device 1 device intrauterine DIRECTED Referrals Follow up/Referrals: Mia Mehta DO [Primary Care Provider] - See instructions Activity Restrictions/Add. 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 Return for any new or worsening symptoms. Clinical Impressions Clinical Impression: Chest pain Instructions Patient Instructions: DI for Atypical Chest Pain Discharge ED Provider: Mia Bolanos [facility] General Chief Complaint: Chest Pain Stated Complaint: CP Time Seen by Provider: 06/27/23 20:13 Mode of Arrival: Family Vehicle Source of Information: Patient Limitations: No Limitations Description of Symptoms (Recalled from ER Triage Doc. by RN): midsternal, mid left anterior chest pain accompanied by nausea and slightly off feeling. Patient states she has seen pcp this date and had blood work drawn already today for same workup, but the uncomfortable feeling persisted and she came in for eval at ED. Patient is a&ox4. VSS. Afebrile. PMH: CAD, hyperlipidemia. Takes a daily statin med and occ ASA 81 mg. History of Present Illness HPI narrative: Patient is a 38-year-old female with past medical history hyperlipidemia, CAD, chronic numbness and tingling of her left upper extremity secondary to disc protrusion presenting with intermittent chest pain and feeling off. Patient states that she will have intermittent chest discomfort and did have some today that was midsternal with some associated nausea that has been intermittent all day. She does follow with cardiology Dr. Kirkpatrick and had a left heart catheterization 2 years ago which showed 20% stenosis in her cardiac vessels. She takes a baby aspirin every other day but is otherwise not on any anticoagulation and personally has no history of TN but does have significant familial cardiac history. Given her persistent symptoms she presented for further evaluation. Related Data Home Medications Medication Instructions Recorded Confirmed levonorgestrel 21 mcg/24 hours (8 1 device intrauterine DIRECTED 03/13/22 06/27/23 yrs) 52 mg intrauterine device control (Mirena) aspirin 81 mg chewable tablet 81 mg PO .qod 06/27/23 06/27/23 Previous Rx's Medication Instructions Recorded atorvastatin 40 mg tablet 40 mg PO HS #90 tabs 06/27/23 omeprazole 20 mg capsule,delayed 20 mg PO DAILY #30 caps 06/27/23 release semaglutide 1 mg/dose (4 mg/3 mL) 1 mg (0.75 mL) SQ WEEKLY #3 mL 06/27/23 subcutaneous pen injector (Ozempic) Allergies Allergy/AdvReac Type Severity Reaction Status Date / Time No Known Allergies Allergy Verified 06/27/23 15:14 [facility] Disclaimer: The information contained in this section may have been updated after the patient was seen, as this information can be updated by other users. Medical History (Updated 06/27/23 @ 21:42 by Mia Bolanos MD) Acid reflux Angina pectoris CAD (coronary artery disease) Chest pain Gastroenteritis Hyperlipidemia Sinus tachycardia Surgical History H/O LEEP History of section History of cholecystectomy S/P wisdom tooth extraction Family History Grandmother Cancer paternal Family/Other Cancer paternal Other Family history of hyperlipidemia Family history of hypertension Family history of myocardial infarction Social History Smoking Status: Unknown if ever smoked alcohol intake: never substance use type: denies use current occupational status: other Travel in the last 8 weeks: Inside the [place] household members: spouse and children housing: house ROS Obtained: Yes All systems reviewed & no additional complaints except as documented Physical Exam General General appearance: alert and in no apparent distress Head Head exam: atraumatic and normocephalic Neck Neck exam: Present normal inspection Chest Chest inspection: Present normal inspection and symmetric chest wall rise Respiratory Respiratory exam: Present normal lung sounds bilaterally; Absent respiratory distress Cardiovascular Cardiovascular exam: Present regular rate and normal rhythm Abdominal Exam Abdominal exam: Present soft; Absent tenderness Extremities Exam Extremities exam: Present normal inspection Neurological Exam Neurological exam: Present alert and oriented X3 Psychiatric Psychiatric exam: Present normal affect Skin Skin exam: Present warm and dry HEART Score HEART Score HEART Score assessment performed?: Yes History (anamnesis): Moderately suspicious ECG: Normal Age: <45 years Risk factors: 1-2 risk factors Troponin: </= normal limit HEART Score: 2 Critical Care Critical Care Time Critical Care Time: No Medical Decision Making Medical Records Medical records reviewed: Yes I reviewed the patient's medical records. Ulisses Inquiry Pt receiving controlled substance: No Vital Signs Vital Signs: 06/27/23 20:16 Temperature 97.0 F L Temperature Source Oral Pulse Rate [Right Brachial] 75 Respiratory Rate 15 Blood Pressure [Right Arm] 132/77 Blood Pressure Mean [Right Arm] 95 Blood Pressure Source [Right Arm] Automatic Cuff Blood Pressure Position [Right Arm] Sitting 02 Sat by Pulse Oximetry 99 Oxygen Delivery Method Room Air Lab Data Lab results reviewed: Yes I reviewed the patient's lab results. Labs: Lab Results 06/27/23 20:10: WBC 10.7, RBC 4.85, Hgb 13.5, Hct 42.5, MCV 87.5, MCH 27.8, MCHC 31.8, RDW 13.2, Plt Count 251, MPV 8.4, Neut % (Auto) 69.3, Lymph % (Auto) 24.2, [place] % (Auto) 4.8, Eos % (Auto) 1.2, Baso % (Auto) 0.4, Neut # (Auto) 7.4, Lymph # (Auto) 2.6, [place] # (Auto) 0.5, Eos # (Auto) 0.1, Baso # (Auto) 0.1, Sodium 139, Potassium 3.8, Chloride 103, Carbon Dioxide 31 H, Anion Gap 8.8, BUN 17, Creatinine 0.80, Estimated Creat Clear 134, Estimated GFR 79, Est GFR ( Amer) 96, Glucose 87, Calcium 9.1, Troponin I < 0.01 06/27/23 20:10 06/27/23 20:10 Response Orders (Tests/Meds): ED MEDICATIONS Generic Name Dose Route Start Last Admin Trade Name Freq PRN Reason Stop Dose Admin Sodium Chloride 1,000 mls @ 999 mls/hr 06/27/23 20:51 Sod Chlor 0.9% 1000ml Bag IV 02/22/24 21:51 .Q1H1M ONE Sodium Chloride 10 ml 06/27/23 20:13 Sodium Chloride 0.9% 10ml Flush Syringe IV 07/27/23 20:12 NEEDED PRN Maintain IV Site Discontinued Medications Generic Name Dose Route Start Last Admin Trade Name Pennie PRN Reason Stop Dose Admin Aspirin 324 mg 06/27/23 20:13 06/27/23 20:17 Aspirin 81mg Chewable Tablet PO 06/27/23 20:14 324 mg ONCE ONE Administration ORDERS Category Date Time Status XR chest portable Stat Exams 06/27/23 20:13 Completed Basic Metabolic Panel Stat Lab 06/27/23 20:10 Completed Complete Blood Count Auto Diff Stat Lab 06/27/23 20:10 Completed Troponin I Q3H Lab 06/27/23 23:30 Ordered Troponin I Q3H Lab 06/28/23 02:30 Ordered Troponin I Stat Lab 06/27/23 20:10 Completed ECG initial [place]on Routine Y 06/27/23 20:10 Completed ECG Data Tracing #1: Attestation: I reviewed this ECG and interpreted as documented below: ECG Narrative: EKG showing normal sinus rhythm at a rate of 93, no acute ischemia or infarction MDM Narrative Medical Decision Narrative: Patient is a 38-year-old female with past medical history hyperlipidemia, CAD with known 20% stenosis to her coronary arteries, disc bulging causing paresthesias of her left neck and face presenting with chest pain. She states it is a pressure over her mid chest and she does have a history of this, follows with Dr. Kirkpatrick with cardiology and had a left heart catheterization 2 years ago. She states the pain has been intermittent throughout the day started several hours ago. Presents due to concern for possible cardiac etiology of pain as she does have significant familial cardiac history though no personal history of [place]. Obtain labs for further evaluation. EKG per my interpretation at bedside shows no acute ischemia or infarction and normal sinus rhythm. CBC and CMP nonactionable, troponin negative. Chest x-ray showing no acute process. Given reassuring workup and she is low risk for heart score feel patient appropriate for outpatient follow-up at this time. Discussed this with patient who is agreeable with plan and also discussed return precautions to which she is agreeable. Discharged in stable condition.
[2023-06-27 21:59] VITALS: BP 132/77; PULSE 95; RESP 18; TEMP 36.7; O2SAT 99
== END 2023-06-27 22:05 | disposition home or self-care (01) ==
PROVIDERS: Emergency Provider Emergency Medicine; PCP Obstetrics & Gynecology
DX: R07.9 Chest pain, unspecified (principal); R11.0 Nausea; E78.5 Hyperlipidemia, unspecified; I25.119 Atherosclerotic heart disease of native coronary artery with unspecified angina pectoris; K21.9 Gastro-esophageal reflux disease without esophagitis
CPT/HCPCS: 71045; 80048; 84484; 85025; 93005; 96360; 99285

== ENCOUNTER 2023-08-16 21:18 | Emergency (ER) | payer BC, SELFPAY ==
[2023-08-16 21:31] VITALS: BP 131/93; PULSE 115; RESP 16; TEMP 36.7; O2SAT 100; BMI 29.7
--- NOTE | 2023-08-16 21:40 | HMH.EDGENADL ---
Discharge Plan Disposition Patient Disposition: Home, Self-Care Chief Complaint: PAIN Prescriptions Prescriptions: No Action aspirin 81 mg tablet,chewable 81 mg PO .qod atorvastatin 40 mg tablet 40 mg PO HS Qty: 90 0RF omeprazole 20 mg capsule,delayed release(DR/EC) 20 mg PO DAILY Qty: 30 2RF Mirena 20 mcg/24 hours (8 yrs) 52 mg intrauterine device 1 device intrauterine DIRECTED Mounjaro 2.5 mg/0.5 mL pen injector 2.5 mg SQ WEEKLY 28 Days Qty: 2 0RF Referrals Follow up/Referrals: Reno Mehta DO [Primary Care Provider] - See instructions Activity Restrictions/Add. Instructions Additional Instructions/Restrictions: At this time it was felt you are safe to be discharged home. If new or worsening symptoms please do not hesitate to return the emergency department. Please continue to follow-up with your family doctor and neurologist for continued evaluation as you are able. Clinical Impressions Clinical Impression: Paresthesias Discharge ED Provider: Chandan Cheek General Adult HPI General Chief complaint: PAIN Stated complaint: painful tingling all over and chills Time Seen by Provider: 08/16/23 21:20 History of Present Illness HPI narrative: Patient is a 38-year-old female with past medical history of coronary artery disease, jys-nrpsxpn-syrfvhfwy diabetes, paresthesias and history of cervical occipital neuralgia who presents emergency department for evaluation of abnormal sensation. Patient states that she has been dealing with this for a few years, she has had left-sided oiry-quc-rtjzjdi on her face, her left upper extremity extending down into her fourth and fifth digit, waxing waning in timing and intensity, no motor deficits or trauma, no painful vision loss. She has been worked up by neurology including MRI head, MRA head and neck, MRI C-spine which is remarkable only for multilevel disc degeneration with bulge at C5-C6. Over the last week, predominantly the last 24 hours patient has had global pins and needle sensation including head, neck, extremities sparing the palms. Symptoms are worse underneath her left inferior thoracic cage extending along her inframammary margin, no rashes. Dzhe-fnt-vlqbibd include her perineum. No incontinence reported. Related Data Home Medications Medication Instructions Recorded Confirmed levonorgestrel 21 mcg/24 hours (8 1 device intrauterine DIRECTED 03/13/22 06/27/23 yrs) 52 mg intrauterine device control (Mirena) aspirin 81 mg chewable tablet 81 mg PO .qod 06/27/23 06/27/23 Previous Rx's Medication Instructions Recorded atorvastatin 40 mg tablet 40 mg PO HS #90 tabs 06/27/23 omeprazole 20 mg capsule,delayed 20 mg PO DAILY #30 caps 06/27/23 release tirzepatide 2.5 mg/0.5 mL 2.5 mg (0.5 mL) SQ WEEKLY 4 weeks 07/16/23 subcutaneous pen injector #2 mL (Jennifer) Allergies Allergy/AdvReac Type Severity Reaction Status Date / Time No Known Allergies Allergy Verified 06/27/23 15:14 [facility] Disclaimer: The information contained in this section may have been updated after the patient was seen, as this information can be updated by other users. Medical History (Updated 08/16/23 @ 22:54 by Chandan Cheek MD) CAD (coronary artery disease) Hyperlipidemia Angina pectoris Sinus tachycardia Chest pain Gastroenteritis Acid reflux Surgical History S/P wisdom tooth extraction History of cholecystectomy History of section H/O LEEP Family History Grandmother Cancer paternal Family/Other Cancer paternal Other Family history of hyperlipidemia Family history of hypertension Family history of myocardial infarction Social History Smoking Status: Never smoker alcohol intake: never substance use type: denies use current occupational status: other Travel in the last 8 weeks: Inside the [employer] States household members: spouse and children housing: house ROS Obtained: Yes Systems reviewed as appropriate & no additional complaints except as documented Physical Exam General General appearance: alert and in no apparent distress Head Head exam: atraumatic and normocephalic Eye Eye exam: Present PERRL (No APD) and EOMI ENT ENT exam: Present mucous membranes moist Neck Neck exam: Present normal inspection Chest Chest inspection: Present normal inspection and symmetric chest wall rise Respiratory Respiratory exam: Absent respiratory distress Cardiovascular Cardiovascular exam: Present regular rate and normal rhythm Abdominal Exam Abdominal exam: Present soft; Absent tenderness Extremities Exam Extremities exam: Present normal inspection Neurological Exam Neurological exam: Present alert, oriented X3 and CN II-XII intact; Absent motor sensory deficit (Sensation intact to light touch distal bilateral upper and lower extremities, 5 out of 5 strength bilateral upper and lower extremities in all joints.) Psychiatric Psychiatric exam: Present normal affect Skin Skin exam: Present warm and dry Medical Decision Making Ulisses Inquiry Pt receiving controlled substance: No Vital Signs: 08/16/23 21:31 Temperature 98.1 F Temperature Source Oral Pulse Rate [Left] 115 H Respiratory Rate 16 Blood Pressure [Right Arm] 131/93 H Blood Pressure Mean [Right Arm] 105 Blood Pressure Source [Right Arm] Automatic Cuff Blood Pressure Position [Right Arm] Sitting 02 Sat by Pulse Oximetry 100 Lab Data Lab Results 08/16/23 22:05: WBC 9.1, RBC 5.12, Hgb 14.4, Hct 44.9, MCV 87.6, MCH 28.1, MCHC 32.1, RDW 13.3, Plt Count 238, MPV 8.7, Neut % (Auto) 68.7, Lymph % (Auto) 23.9, [place] % (Auto) 5.0, Eos % (Auto) 1.4, Baso % (Auto) 1.1, Neut # (Auto) 6.3, Lymph # (Auto) 2.2, [place] # (Auto) 0.5, Eos # (Auto) 0.1, Baso # (Auto) 0.1, D-Dimer 0.60 H, Sodium 138, Potassium 4.0, Chloride 104, Carbon Dioxide 26, Anion Gap 12.0, BUN 19 H, Creatinine 0.90, Estimated Creat Clear 113, Estimated GFR 69, Est GFR ( Amer) 84, Glucose 103 H, Calcium 9.3, Magnesium 2.2, Total Bilirubin 0.4, AST 30, ALT 34, Alkaline Phosphatase 97, Troponin I < 0.01, Total Protein 7.7, Albumin 4.7, Globulin 3.0, Albumin/Globulin Ratio 1.6, Free T4 0.80, Serum HCG, Qual Negative 08/16/23 22:05 08/16/23 22:05 Orders (Tests/Meds): ED MEDICATIONS Discontinued Medications Generic Name Dose Route Start Last Admin Trade Name Freq PRN Reason Stop Dose Admin Acetaminophen 1,000 mg 08/16/23 21:49 08/16/23 21:53 Acetaminophen 1,000mg/100ml Vial IV 08/16/23 21:50 1,000 mg ONCE ONE Administration Hydroxyzine Pamoate 50 mg 08/16/23 21:38 08/16/23 21:53 Hydroxyzine Pamoate 25mg Capsule PO 08/16/23 21:39 50 mg ONCE ONE Administration Lactated Ringer's 1,000 mls @ 999 mls/hr 08/16/23 21:50 08/16/23 21:53 Lactated Ringer's 1000 Ml Bag IV 08/16/23 22:50 999 mls/hr .Q1H1M ONE Administration ORDERS Category Date Time Status CBC w/Auto Diff [Complete Blood Count Auto Diff] Stat Lab 08/16/23 22:05 Completed CMP [Comprehensive Metabolic Panel] Stat Lab 08/16/23 22:05 Results Calcium, Ionized Stat Lab 08/16/23 22:39 Received D-Dimer Stat Lab 08/16/23 22:05 Completed ESR [Erythrocyte Sedimentation Rate] Stat Lab 08/16/23 22:05 Received Free T4 (Free Thyroxine) Stat Lab 08/16/23 22:05 Completed HCG Qualitative, Serum Stat Lab 08/16/23 22:05 Completed MG [Magnesium] Stat Lab 08/16/23 22:05 Results TSH [Thyroid Stimulating Hormone] Stat Lab 08/16/23 22:05 Results Trop I [Troponin I] Stat Lab 08/16/23 22:05 Completed Troponin I Q3H Lab 08/17/23 01:15 Ordered Troponin I Q3H Lab 08/17/23 04:15 Ordered ECG Data Tracing #1: Independently interpreted by me, rate is 101, rhythm is regular, axis is normal, no ST elevation in anatomical contiguous leads, QTc 381 Medical Decision Narrative: In summary patient is a 38-year-old female past medical history described above who presents emergency department for evaluation of global paresthesias sparing the palms and soles. Patient is hemodynamically stable nontoxic-appearing upon arrival, afebrile. Differential diagnosis includes polyneuropathy secondary to electrolyte abnormality, vitamin deficiency, autoimmune process, uremia, among others. Primary neurologic disorder such as multiple sclerosis, transverse myelitis is also on the differential however patient does not have weakness, purely paresthesias. Patient does not have acute painful vision loss that would suggest emergent evaluation for multiple sclerosis need be conducted. Full neurologic exam is normal. Workup will be conducted with hematologic labs. History and physical not consistent with primary cardiac etiology although pain along her left inferior costal margin and pinching in her sternal area with tachycardia screening for pulmonary embolism and ACS will be conducted with D-dimer, troponin, EKG. No focal weakness on exam that would warrant CT imaging although was considered. Initial interventions include Vistaril, IV Tylenol. Workup reviewed by me, hematologic labs are nonactionable, pulmonary embolism excluded per years criteria, no critical electrolyte abnormality, no evidence of significant uremia, initial troponin undetectably low. hCG negative, free T4 within normal limits. Upon repeat evaluation patient had persistent symptoms however no acute neurologic deficits that would warrant emergent evaluation at this time. Given this patient is appropriate for discharge at this time was given return precautions and will continue to follow-up on an outpatient basis. Critical Care Critical Care Time Critical Care Time: No
[2023-08-16] MEDS: ACETAMINOPHEN 1,000MG/100ML VIAL 1000 MG IV (21:53)
[2023-08-16] MEDS: hydrOXYzine pamoate 25MG CAPSULE 50 MG PO (21:53)
[2023-08-16] MEDS: LACTATED RINGERS 1000ML 1,000 ML 999 ML IV (21:53)
--- NOTE | 2023-08-16 22:09 | ECG_ITS ---
APPROVED REPORT Exam: Resting ECG HR:101 bpm ECG Measurements Heart Rate 101 AXES LA 142 P 61 QRSd 89 QRS 38 QT 323 T 50 QTc 381 Conclusion SINUS TACHYCARDIA LOW QRS VOLTAGE IN PRECORDIAL LEADS [QRS DEFLECTION < 1.0 mV IN CHEST LEADS] ABNORMAL RHYTHM ECG Electronically signed by : ALEX COSTA, 08/17/2023 17:09:01
[2023-08-16 22:14] LABS: Basophils # 0.1 K/mm3 (0-0.2); Basophils % 1.1 % (0.1-2.0); Eosinophils # 0.1 K/mm3 (0.0-0.4); Eosinophils % 1.4 % (0.1-12.0); Hematocrit 44.9 % (37.0-47.0); Hemoglobin 14.4 g/dL (12.2-16.2); Lymphocytes # 2.2 K/mm3 (0.7-4.5); Lymphocytes % 23.9 % (10-50); Mean Corpuscular HGB Conc 32.1 g/dL (31.8-35.4); Mean Corpuscular Hemoglobin 28.1 pg (27.0-31.2); Mean Corpuscular Volume 87.6 fl (81-99); Mean Platelet Volume 8.7 fl (7.4-10.4); Monocytes # 0.5 K/mm3 (0.1-1.0); Neutrophils # 6.3 K/mm3 (1.8-7.8); Neutrophils % 68.7 % (37.0-80.0); Platelet Count 238 K/mm3 (142-424); Red Blood Count 5.12 M/mm3 (4.20-5.40); Red Cell Distribution Width 13.3 % (11.5-17.5); White Blood Count 9.1 K/mm3 (4.8-10.8)
--- NOTE | 2023-08-16 22:17 | PC.NURSE ---
Reported to MD that pt states that she is having burning sensation all over her body no new orders
[2023-08-16 22:21] LABS: Alanine Aminotransferase 34 U/L (12-78); Albumin Level 4.7 g/dl (3.5-5.0); Albumin/Globulin Ratio 1.6 (1.1-1.8); Alkaline Phosphatase 97 U/L (38-126); Aspartate Amino Transferase 30 U/L (14-36); Bilirubin,Total 0.4 mg/dl (0.2-1.3); Blood Urea Nitrogen 19 mg/dl (7-17); Calcium 9.3 mg/dl (8.4-10.2); Carbon Dioxide 26 mmol/L (22.0-30.0); Chloride 104 mmol/L (98-107); Creatinine Clearance Estimated 113 mL/min (50-200); Estimated Glomerular Filt Rate 69 ml/min (>60); GFR (African American) 84 ML/MIN (>60); Glucose 103 mg/dl (74-100); Magnesium 2.2 mg/dl (1.6-2.3); Sodium 138 mmol/L (136-145); Total Protein,Serum 7.7 g/dl (6.3-8.2)
[2023-08-16 22:22] LABS: HCG Qualitative, Serum Negative (Negative)
[2023-08-16 22:38] LABS: Troponin I < 0.01 ng/ml (0.00-0.034)
[2023-08-16 22:53] LABS: Thyroid Stimulating Hormone 3.58 uIU/mL (0.465-4.68)
[2023-08-16 23:03] LABS: Erythrocyte Sedimentation Rate 19 mm/hr (0-20)
[2023-08-16 23:26] VITALS: BP 119/71; PULSE 91; RESP 19; TEMP 36.8; O2SAT 98
[2023-08-16 23:31] VITALS: BP 117/91; PULSE 82; RESP 19; TEMP 36.8; O2SAT 98
[2023-08-19 16:12] LABS: Calcium, Ionized 4.9 mg/dL (4.5-5.6)
== END 2023-08-16 23:32 | disposition home or self-care (01) ==
PROVIDERS: Emergency Provider Emergency Medicine; PCP Internal Medicine
DX: R00.0 Tachycardia, unspecified (principal); R20.2 Paresthesia of skin; E11.9 Type 2 diabetes mellitus without complications; I11.9 Hypertensive heart disease without heart failure; I25.119 Atherosclerotic heart disease of native coronary artery with unspecified angina pectoris; E78.5 Hyperlipidemia, unspecified; K21.9 Gastro-esophageal reflux disease without esophagitis; Z79.85 Long-term (current) use of injectable non-insulin antidiabetic drugs
CPT/HCPCS: 36415; 80053; 82330; 83735; 84439; 84443; 84484; 84703; 85025; 85378; 85651; 93005; 96361; 96374; 99284; J0131

== ENCOUNTER 2023-08-19 15:56 | Outpatient (CLI) | payer BC, SELFPAY ==
--- NOTE | 2023-08-19 16:12 | XR_ITS ---
FINAL REPORT CLINICAL HISTORY: Back pain FINDINGS: THORACIC SPINE Two views demonstrate no acute fracture. The disc spaces are well preserved. There is thoracic scoliosis convex to the right measuring 15 degrees. There is no malalignment. IMPRESSION: Scoliosis as above. Reviewed, Interpreted and Dictated by Arie Bazan MD Transcribed by Lucrecia Watts Authenticated and [facility]
== END 2023-08-19 23:59 ==
LOC: RAD 15:57
PROVIDERS: PCP Internal Medicine; Visit Provider Specialist
DX: M54.81 Occipital neuralgia (principal); M54.2 Cervicalgia; R20.0 Anesthesia of skin; R20.2 Paresthesia of skin; M54.6 Pain in thoracic spine
CPT/HCPCS: 72072

== ENCOUNTER 2023-08-20 15:03 | Outpatient (CLI) | payer BC, SELFPAY ==
[2023-08-20 16:58] LABS: Vitamin B12 383 pg/mL (239-931)
== END 2023-08-20 23:59 ==
LOC: LAB 15:03
PROVIDERS: PCP Internal Medicine; Visit Provider Specialist
DX: R20.2 Paresthesia of skin (principal)
CPT/HCPCS: 36415; 82607

== ENCOUNTER 2023-08-21 08:53 | Emergency (ER) | payer BC, SELFPAY ==
[2023-08-21 08:56] VITALS: BP 158/95; PULSE 95; RESP 18; TEMP 36.9; O2SAT 98; BMI 32.3
[2023-08-21 09:00] VITALS: BP 142/91; PULSE 90; O2SAT 100
--- NOTE | 2023-08-21 09:22 | CT_ITS ---
FINAL REPORT TECHNIQUE: Axial CT images were performed through the head. Coronal and sagittal reformatted images were submitted. This study was performed with techniques to keep radiation doses as low as reasonably achievable (ALARA). Individualized dose reduction techniques using automated exposure control or adjustment of mA and/or kV according to the patient's size were employed. CLINICAL HISTORY: L sided numbness/tingling + head, neck, back pain COMPARISON: None FINDINGS: The ventricles are normal in size. There is no evidence of hemorrhage. There is no mass or edema identified. There is no abnormal extra-axial fluid seen. The sinuses are well aerated. IMPRESSION: No acute intracranial process. Reviewed, Interpreted and Dictated by Arie Bazan MD Transcribed by Sandy Sibley Authenticated and [facility]
--- NOTE | 2023-08-21 09:22 | CT_ITS ---
FINAL REPORT TECHNIQUE: Axial images were obtained of the thoracic spine by computed tomography. Coronal and sagittal reconstruction process performed. This study was performed with techniques to keep radiation doses as low as reasonably achievable (ALARA). Individualized dose reduction techniques using automated exposure control or adjustment of mA and/or kV according to the patient's size were employed. CLINICAL HISTORY: L sided numbness/tingling + head, neck, back pain COMPARISON: None FINDINGS: Thoracic vertebrae show normal height. There is mild disc space narrowing at the T7-8 level, with a small right paracentral disc protrusion and mild narrowing of the right side of the canal. At the T8-9 level and mild annular bulge is present which does not produce significant canal abnormality. There is no malalignment. The facets are properly aligned. IMPRESSION: Mild degenerative change at the T7-8 and T8-9 levels as described. No evidence of acute bony abnormality is identified. Reviewed, Interpreted and Dictated by Arie Bazan MD Transcribed by Sandy Sibley Authenticated and [facility]
--- NOTE | 2023-08-21 09:22 | CT_ITS ---
FINAL REPORT TECHNIQUE: Axial images were obtained of the cervical spine by computed tomography. Coronal and sagittal reconstruction process performed. This study was performed with techniques to keep radiation doses as low as reasonably achievable (ALARA). Individualized dose reduction techniques using automated exposure control or adjustment of mA and/or kV according to the patient''s size were employed. CLINICAL HISTORY: L sided numbness/tingling + head, neck, back pain COMPARISON: None FINDINGS: Cervical vertebrae show normal height. Disc spaces are well-preserved. There is no malalignment. The facets are properly aligned. IMPRESSION: No fracture. Reviewed, Interpreted and Dictated by Arie Bazan MD Transcribed by Sandy Sibley Authenticated and . [facility]
--- NOTE | 2023-08-21 09:22 | CT_ITS ---
FINAL REPORT TECHNIQUE: The patient was injected with IV contrast. Axial images were obtained through the chest in a PE protocol. 3-D reconstruction images were also performed. Individualized dose reduction techniques using automated exposure control or adjustment of the MA and/or KV according to patient's size were employed. CLINICAL HISTORY: L sided numbness/tingling + head, neck, back pain COMPARISON: 03/19/2022 FINDINGS: Mediastinal vasculature is adequately opacified. No pulmonary artery filling defects are identified to suggest PE. There is no aortic dissection. There is no axillary adenopathy. There is no hilar or mediastinal adenopathy. The heart size is normal. There is no pericardial or pleural effusion. Mild posterior pleural thickening is noted bilaterally. Limited images of the upper abdomen are unremarkable, other than a prior cholecystectomy. No suspicious infiltrate or nodule is identified. IMPRESSION: No pulmonary embolus or dissection. Reviewed, Interpreted and Dictated by Arie Bazan MD Transcribed by Sandy Sibley Authenticated and [facility]
--- NOTE | 2023-08-21 09:22 | CT_ITS ---
FINAL REPORT CLINICAL HISTORY: L sided numbness/tingling + head, neck, back pain COMPARISON: None FINDINGS: Thin-section axial CT with IV contrast supplemented with multi planar reconstruction under CT angiogram protocol was performed of the head and neck. This study was performed technique to keep radiation doses as low as reasonably achievable, (ALARA). NASCET criteria was utilized during interpretation. CTA head: No aneurysm is seen. Major intracranial vessels are patent without significant stenosis. IMPRESSION: No evidence of significant stenosis, aneurysm or major branch occlusion. CTA neck: Aortic arch: Arch shows no significant narrowing. Great vessel origins are widely patent. Right carotid: No significant stenosis is seen at the cervical common or internal carotid artery. Left carotid: No significant stenosis is seen at the cervical common or internal carotid artery. Vertebrals: The vertebral arteries are codominant. No significant stenosis is present. IMPRESSION: No evidence of significant stenosis or major branch occlusion. Reviewed, Interpreted and Dictated by Arie Bazan MD Transcribed by Sandy Sibley Authenticated and [facility]
[2023-08-21 09:33] LABS: Chloride 107 mmol/L (98-107); Sodium 141 mmol/L (136-145)
[2023-08-21 09:34] LABS: Potassium 3.8 mmoL/L (3.5-5.1)
[2023-08-21 09:35] LABS: Basophils # 0.1 K/mm3 (0-0.2); Basophils % 1.1 % (0.1-2.0); Eosinophils # 0.1 K/mm3 (0.0-0.4); Eosinophils % 1.1 % (0.1-12.0); Hematocrit 46.2 % (37.0-47.0); Hemoglobin 14.5 g/dL (12.2-16.2); Lymphocytes # 1.6 K/mm3 (0.7-4.5); Lymphocytes % 24.6 % (10-50); Mean Corpuscular HGB Conc 31.4 g/dL (31.8-35.4); Mean Corpuscular Hemoglobin 27.7 pg (27.0-31.2); Mean Corpuscular Volume 87.9 fl (81-99); Mean Platelet Volume 8.7 fl (7.4-10.4); Monocytes # 0.3 K/mm3 (0.1-1.0); Monocytes % 5.1 % (1.7-9.3); Neutrophils # 4.4 K/mm3 (1.8-7.8); Neutrophils % 68.1 % (37.0-80.0); Platelet Count 278 K/mm3 (142-424); Red Blood Count 5.25 M/mm3 (4.20-5.40); Red Cell Distribution Width 13.2 % (11.5-17.5); White Blood Count 6.5 K/mm3 (4.8-10.8)
[2023-08-21 09:36] LABS: Alanine Aminotransferase 25 U/L (12-78); Albumin Level 4.3 g/dl (3.5-5.0); Albumin/Globulin Ratio 1.3 (1.1-1.8); Alkaline Phosphatase 102 U/L (38-126); Anion Gap 10.8 mEq/L (5-15); Aspartate Amino Transferase 28 U/L (14-36); Bilirubin,Total 0.7 mg/dl (0.2-1.3); Blood Urea Nitrogen 15 mg/dl (7-17); Carbon Dioxide 27 mmol/L (22.0-30.0); Creatinine Clearance Estimated 134 mL/min (50-200); Estimated Glomerular Filt Rate 79 ml/min (>60); GFR (African American) 96 ML/MIN (>60); Globulin 3.2 g/dL (1.3-3.2); Total Protein,Serum 7.5 g/dl (6.3-8.2)
[2023-08-21] MEDS: ACETAMINOPHEN 500MG TAB 1000 MG PO (09:36)
[2023-08-21] MEDS: diazePAM 5MG TABLET 5 MG PO (09:36)
[2023-08-21] MEDS: KETOROLAC 30MG/ML VIAL 15 MG IV (09:36)
[2023-08-21 09:37] LABS: Calcium 9.2 mg/dl (8.4-10.2); Glucose 106 mg/dl (74-100)
--- NOTE | 2023-08-21 09:37 | PC.NURSE ---
3ml post void residual
[2023-08-21 09:41] LABS: Microscopic, Urine URINE MICROSCOPIC (MICROSCOPIC)
[2023-08-21 09:45] LABS: Appearance,Urine CLEAR (Clear); Blood, Urine 2+ (Negative); Color,Urine YELLOW (Yellow); Glucose,Urine (UA) Negative (Negative); Ketones,Urine TRACE (Negative); Leukocyte Esterase,Urine 2+ (Negative); Nitrate,Urine Negative (Negative); Protein,Urine TRACE (Negative); Specific Gravity, Urine >= 1.030 (1.005-1.030); Urobilinogen,Urine 0.2 EU/dl (0.2)
[2023-08-21 09:53] LABS: HCG Qualitative, Serum Negative (Negative)
[2023-08-21 10:02] LABS: Troponin I < 0.01 ng/ml (0.00-0.034)
[2023-08-21 10:13] LABS: Bilirubin,Urine 1+ (Negative)
[2023-08-21 10:34] LABS: Bacteria,Urine 2+ /lpf; RBC,Urine Occasional #/hpf (0-3); WBC,Urine 20-50 #/hpf (0-3)
--- NOTE | 2023-08-21 10:39 | ED_ITS ---
Discharge Plan Disposition Patient Disposition: Home, Self-Care Condition: Good Prescriptions Prescriptions: New ketorolac 10 mg tablet 10 mg PO Q8H PRN (Reason: pain) 1 Days Qty: 20 0RF prednisone 50 mg tablet 50 mg PO DAILY 5 Days Qty: 5 0RF nitrofurantoin monohyd/m-cryst [Macrobid] 100 mg capsule 100 mg PO BID 7 Days Qty: 14 0RF Rx Instructions: must administer with a meal/food methocarbamol 750 mg tablet 750 mg PO Q8H PRN (Reason: pain) Qty: 20 0RF No Action atorvastatin 40 mg tablet 40 mg PO HS Qty: 90 0RF omeprazole 20 mg capsule,delayed release(DR/EC) 20 mg PO DAILY Qty: 30 2RF aspirin 81 mg tablet,chewable 81 mg PO DAILY Mirena 20 mcg/24 hours (8 yrs) 52 mg intrauterine device 1 device intrauterine DIRECTED propranolol 20 mg tablet 20 mg PO BID Patient Comments: TAKE 1 TABLET BY MOUTH TWICE DAILY Mounjaro 5 mg/0.5 mL pen injector 5 mg SQ WEEKLY Qty: 2 0RF duloxetine 20 mg capsule,delayed release(DR/EC) 20 mg PO QHS Qty: 90 0RF Referrals Follow up/Referrals: Reno Mehta DO [Primary Care Provider] - See instructions Activity Restrictions/Add. Instructions Additional Instructions/Restrictions: You were evaluated in the emergency department today. Please follow-up closely with your primary care provider. 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 You may also take Tylenol. I feel you would benefit from evaluation by a spine surgeon, so please seek referral from your primary care provider. I also feel he would benefit from physical therapy. Return to the emergency department for new or worsening symptoms. Clinical Impressions Clinical Impression: Neck pain, Paresthesias Instructions Patient Instructions: DI for Urinary Tract Infection (UTI), DI for Cervical Radiculopathy, DI for Neck Pain Discharge ED Provider: Mandy Preciado General Adult HPI General Chief complaint: Neck Pain/Injury Stated complaint: Pain/ Stiffness in back of neck, tingling in hands Time Seen by Provider: 08/21/23 09:05 Mode of Arrival: Ambulatory Source of Information: Patient Limitations: No Limitations Description of Symptoms (Recalled from ER Triage Doc. by RN): sleeping aqnd woke up with neck pain @ 1am. popped. numbness and tingling through out body. History of Present Illness HPI narrative: This patient is a 38-year-old female with history of CAD, hyperlipidemia, anxiety, occipital neuralgia, cervical spondylosis, and bulging cervical intervertebral discs presenting to the emergency department for evaluation with concern for neck pain and left-sided paresthesias. Patient has a history of intermittent neck pain and paresthesias in the past, however this acutely worsened on Saturday when she felt a pop in her neck and then felt numb and tingly on the left side. She was evaluated in the emergency department, and on medical record review had thoracic spine x-ray which was reassuring. She had a reassuring exam at that time, so she was discharged home with PCP and neurology follow-up. She notes she followed up with both, and they plan to repeat an outpatient MRI. She had an MRI and MRA in 2022 which demonstrated degenerative disc disease without other acute concern per medical record review. She is awaiting these MRIs, which are tentatively scheduled for September 02. She states that this morning around 1 AM, she felt a pop after turning her head and then experienced neck pain again. She also states that her entire left side felt numb and tingly from her face all the way down to her toes. She states the numbness and tingling have improved, but she feels a burning sensation in her upper back and in a band around her chest. She also states that it feels like her left arm and leg are waking up from being asleep. She denies any abdominal pain, nausea, vomiting, incontinence, retention, or other concerns. She is still ambulatory without notable motor weakness. She does note that she has had urinary frequency. She called her neurologist today to notify her of the symptoms, and she states she was advised to come to the emergency department right away for further evaluation. She states this made her very anxious, and she thinks that the anxiety may be playing a role in her symptoms. Related Data Home Medications Medication Instructions Recorded Confirmed levonorgestrel 21 mcg/24 hours (8 1 device intrauterine DIRECTED 03/13/22 08/19/23 yrs) 52 mg intrauterine device control (Mirena) aspirin 81 mg chewable tablet 81 mg PO DAILY 08/19/23 08/19/23 propranolol 20 mg tablet 20 mg PO BID 08/19/23 08/19/23 Previous Rx's Medication Instructions Recorded atorvastatin 40 mg tablet 40 mg PO HS #90 tabs 06/27/23 omeprazole 20 mg capsule,delayed 20 mg PO DAILY #30 caps 06/27/23 release duloxetine 20 mg capsule,delayed 20 mg PO QHS #90 caps 08/19/23 release tirzepatide 5 mg/0.5 mL 5 mg (0.5 mL) SQ WEEKLY #2 mL 08/19/23 subcutaneous pen injector (Jennifer) ketorolac 10 mg tablet 10 mg PO Q8H PRN pain 1 day #20 08/21/23 tabs methocarbamol 750 mg tablet 750 mg PO Q8H PRN pain #20 tabs 08/21/23 nitrofurantoin 100 mg PO BID 7 days #14 caps 08/21/23 monohydrate/macrocrystals 100 mg capsule (Macrobid) prednisone 50 mg tablet 50 mg PO DAILY 5 days #5 tabs 08/21/23 Allergies Allergy/AdvReac Type Severity Reaction Status Date / Time No Known Allergies Allergy Verified 08/19/23 14:33 [facility] Disclaimer: The information contained in this section may have been updated after the patient was seen, as this information can be updated by other users. Medical History CAD (coronary artery disease) Hyperlipidemia Angina pectoris Sinus tachycardia Chest pain Gastroenteritis Acid reflux Surgical History S/P wisdom tooth extraction History of cholecystectomy History of section H/O LEEP Family History Grandmother Cancer Family/Other Cancer Other Family history of hyperlipidemia Family history of hypertension Family history of myocardial infarction Social History Smoking Status: Never smoker alcohol intake: never substance use type: denies use current occupational status: other Travel in the last 8 weeks: Inside the [place] household members: spouse and children housing: house ROS Obtained: Yes All systems reviewed & no additional complaints except as documented Physical Exam General General appearance: alert and in no apparent distress Head Head exam: atraumatic and normocephalic Eye Eye exam: Present normal appearance, PERRL and EOMI ENT ENT exam: Present normal exam, normal oropharynx, mucous membranes moist and normal external ear exam Neck Neck exam: Present trachea midline and tenderness (Paraspinal); Absent full ROM (Limited range of motion secondary to pain), meningismus or lymphadenopathy Chest Chest inspection: Present normal inspection and symmetric chest wall rise; Absent tenderness Respiratory Respiratory exam: Present normal lung sounds bilaterally; Absent respiratory distress, wheezes, stridor or accessory muscle use Cardiovascular Cardiovascular exam: Present regular rate and normal rhythm Abdominal Exam Abdominal exam: Present soft; Absent distention, tenderness or guarding Extremities Exam Extremities exam: Present normal inspection, full ROM and normal capillary refill; Absent tenderness or edema Back Exam Back exam: Present normal inspection and full ROM; Absent tenderness Neurological Exam Neurological exam: Present alert, oriented X3, CN II-XII intact, normal gait and motor sensory deficit (Subjective decrease in sensation of the left upper and left lower extremity without other focal neurologic deficits noted) Psychiatric Psychiatric exam: Present anxious Skin Skin exam: Present warm and dry Medical Decision Making Medical Records Medical records reviewed: Yes I reviewed the patient's medical records. Ulisses Inquiry Pt receiving controlled substance: No Vital Signs: 08/21/23 08:56 08/21/23 09:00 08/21/23 12:24 Temperature 98.5 F 98.5 F Temperature Source Oral Oral Pulse Rate 90 90 Pulse Rate [Right Radial] 95 H Respiratory Rate 18 18 Blood Pressure 142/91 H 142/91 H Blood Pressure [Right Arm] 158/95 H Blood Pressure Mean [Right Arm] 116 Blood Pressure Source Automatic Cuff Blood Pressure Position Sitting 02 Sat by Pulse Oximetry 98 100 Oxygen Delivery Method Room Air Room Air Room Air Lab Data Lab results reviewed: Yes I reviewed the patient's lab results. Lab Results 08/21/23 09:08: WBC 6.5, RBC 5.25, Hgb 14.5, Hct 46.2, MCV 87.9, MCH 27.7, MCHC 31.4 L, RDW 13.2, Plt Count 278, MPV 8.7, Neut % (Auto) 68.1, Lymph % (Auto) 24.6, Bradley % (Auto) 5.1, Eos % (Auto) 1.1, Baso % (Auto) 1.1, Neut # (Auto) 4.4, Lymph # (Auto) 1.6, Bradley # (Auto) 0.3, Eos # (Auto) 0.1, Baso # (Auto) 0.1, Sodium 141, Potassium 3.8, Chloride 107, Carbon Dioxide 27, Anion Gap 10.8, BUN 15, Creatinine 0.80, Estimated Creat Clear 134, Estimated GFR 79, Est GFR ( Amer) 96, Glucose 106 H, Calcium 9.2, Total Bilirubin 0.7, AST 28, ALT 25, Alkaline Phosphatase 102, Troponin I < 0.01, Total Protein 7.5, Albumin 4.3, Globulin 3.2, Albumin/Globulin Ratio 1.3, Serum HCG, Qual Negative 08/21/23 09:30: Urine Color Yellow, Urine Appearance Clear, Urine pH 6.0, Ur Specific [place] >= 1.030, Urine Protein Trace, Urine Glucose (UA) Negative, Urine Ketones Trace, Urine Blood 2+, Urine Nitrate Negative, Urine Bilirubin 1+ A, Urine Urobilinogen 0.2, Ur Leukocyte Esterase 2+ A, Urine RBC Occasional, Urine WBC 20-50, Ur Squamous Epith Cells 10-20, Urine Bacteria 2+ 08/21/23 09:08 08/21/23 09:08 Orders (Tests/Meds): ED MEDICATIONS Discontinued Medications Generic Name Dose Route Start Last Admin Trade Name Jimq PRN Reason Stop Dose Admin Acetaminophen 1,000 mg 08/21/23 09:22 08/21/23 09:36 Acetaminophen 500mg Tab PO 08/21/23 09:23 1,000 mg ONCE ONE Administration Diazepam 5 mg 08/21/23 09:22 08/21/23 09:36 Diazepam 5mg Tablet PO 08/21/23 09:23 5 mg ONCE ONE Administration Iopamidol 170 ml 08/21/23 11:18 08/21/23 11:19 Iopamidol-370 (76%);100ml Bottle IV 08/21/23 11:19 170 ml ONCE ONE Administration Ketorolac Tromethamine 15 mg 08/21/23 09:22 08/21/23 09:36 Ketorolac 30mg/Ml Vial IV 08/21/23 09:23 15 mg ONCE ONE Administration Sodium Chloride 50 ml 08/21/23 11:18 08/21/23 11:19 0.9 % Sodium Chloride 50 Ml Vial IV 08/21/23 11:19 50 ml ONCE ONE Administration Sodium Chloride 10 ml 08/21/23 11:18 08/21/23 11:19 Sodium Chloride 0.9% 10ml Syr (Rad Only) IV 08/21/23 11:19 10 ml ONCE ONE Administration ORDERS Category Date Time Status CT angio chest - dissection Stat Cat Scan 08/21/23 09:[address] angio head Stat Cat Scan 08/21/23 09:[address] angio neck Stat Cat Scan 08/21/23 09:[address] cervical spine wo con Stat Cat Scan 08/21/23 09:[address] head/brain wo con Stat Cat Scan 08/21/23 09:[address] thoracic spine wo con Stat Cat Scan 08/21/23 09:22 Completed Complete Blood Count Auto Diff Stat Lab 08/21/23 09:08 Completed Comprehensive Metabolic Panel Stat Lab 08/21/23 09:08 Completed Serum [HCG Qualitative, Serum] Stat Lab 08/21/23 09:08 Completed Troponin I Stat Lab 08/21/23 09:08 Completed UA [Urinalysis and Microscopic] Stat Lab 08/21/23 09:30 Completed Urine Culture Stat Micro 08/21/23 09:30 Received ECG Data Tracing #1: I reviewed this ECG and interpreted as documented below: Normal sinus rhythm with a ventricular rate of 77 bpm. Mild right ventricular conduction delay. No acute ST changes concerning for ischemia. ECG initial impression date: 08/21/23 ECG initial impression time: 10:55 Medical Decision Narrative: In summary, this patient is a 38-year-old female presenting to the Emergency Department for evaluation of neck pain and left-sided numbness/tingling after feeling a pop in her neck. Differential diagnoses considered include but are not limited to cervical disc herniation, cervical radiculopathy, carotid dissection, aortic dissection, CVA, anxiety. She also has urinary frequency. Ruling out the most morbid conditions drove assessment. I reviewed patient's past medical records and noted previous evaluations in the past for similar symptoms as per HPI. On exam, the patient is well-appearing and in no acute distress. She does have pain with range of motion of her neck as well as subjective decrease in sensation in her left upper and left lower extremity. Otherwise, exam is reassuring. Patient is noted to ambulate throughout the emergency department without significant difficulty. Postvoid bladder scan demonstrated no significant postvoid residual. Workup included CBC, CMP, troponin, urinalysis, test, CT head, CTA of the head and neck, CT C-spine, CT T-spine, and CTA of the chest. EKG was obtained and is reassuring. She was given oral Tylenol, IV Toradol, and oral Valium for symptomatic improvement. I independently interpreted CT scans prior to the radiologist read and noted no obvious vessel stenosis, spinal deformity, or aortic dissection. Please see their read for final interpretation. Labs were obtained that demonstrated no acutely concerning abnormalities with negative troponin. Patient does have leukocyturia and has noted that her urinary frequency has been worse since she got here. I do feel that she likely has urinary tract infection, despite the fact that her urine was contaminated with squamous cells. No obvious symptoms that would concern me for pyelonephritis. For this, will plan to treat with Macrobid. On reassessment, patient had good improvement after administration of interventions above. She was able to ambulate throughout the emergency department to the bathroom without difficulty. At this time, I feel that we have ruled out life-threatening pathology that would cause the patient's symptoms. This is some that she has dealt with intermittently for a while now, and she already has outpatient MRI scheduled for the end of this month. I do feel that she is appropriate for discharge home. I feel she likely has chronic neck pain related to her degenerative disc disease and cervical radiculopathy causing her symptoms and commendation with anxiety. She was given prescriptions for Toradol, short course of prednisone, and Robaxin for symptomatic improvement. She was given instructions for very close follow-up with her neurology provider as well as her primary care provider. I also explained that I felt she would benefit from referral to a spine physician. She was given strict return precautions and was discharged after all questions were answered Critical Care Critical Care Time Critical Care Time: No
--- NOTE | 2023-08-21 10:49 | ECG_ITS ---
APPROVED REPORT Exam: Resting ECG HR:77 bpm ECG Measurements Heart Rate 77 AXES NM 137 P 41 QRSd 87 QRS 29 QT 345 T 24 QTc 376 Conclusion SINUS RHYTHM LOW QRS VOLTAGE IN PRECORDIAL LEADS [QRS DEFLECTION < 1.0 mV IN CHEST LEADS] POSSIBLE RIGHT VENTRICULAR CONDUCTION DELAY [RSR (QR) IN V1/V2] POSSIBLE ANTERIOR MYOCARDIAL INFARCTION , PROBABLY OLD [30 ms Q WAVE IN V3/V4, OR R < 0.2 mV IN V4] Electronically signed by : LESLIE PALMER, 08/21/2023 14:49:00
--- NOTE | 2023-08-21 10:51 | PC.NURSE ---
PT TO CT
[2023-08-21] MEDS: SODIUM CHLORIDE 0.9% 10ML SYR (RAD ONLY) 10 ML IV (11:19)
[2023-08-21] MEDS: IOPAMIDOL-370 (76%);100ML BOTTLE 170 ML IV (11:19)
[2023-08-21] MEDS: 0.9 % SODIUM CHLORIDE 50 ML VIAL IV (11:19)
--- NOTE | 2023-08-21 12:10 | PC.NURSE ---
DR PALMER AT BEDSIDE
[2023-08-21 12:24] VITALS: BP 142/91; PULSE 90; RESP 18; TEMP 36.9; O2SAT 100
--- NOTE | 2023-08-22 03:07 | PC.NURSE ---
final ct read of cervical spine w/o contrast reveals no fracture.
--- NOTE | 2023-08-23 08:53 | PC.NURSE ---
discussed with about urine culture, pt dc with macrobid, ntd
== END 2023-08-21 12:25 | disposition home or self-care (01) ==
PROVIDERS: Emergency Provider Emergency Medicine; PCP Internal Medicine
DX: M54.2 Cervicalgia (principal); R20.2 Paresthesia of skin; B96.89 Other specified bacterial agents as the cause of diseases classified elsewhere; I11.9 Hypertensive heart disease without heart failure; I25.119 Atherosclerotic heart disease of native coronary artery with unspecified angina pectoris; E78.5 Hyperlipidemia, unspecified
CPT/HCPCS: 70450; 70496; 70498; 71275; 72125; 72128; 80053; 81001; 84484; 84703; 85025; 87086; 93005; 96374; 99285; Q9967

== ENCOUNTER 2023-08-24 11:45 | Outpatient (CLI) | payer BC, SELFPAY ==
[2023-08-24 12:14] LABS: Hemoglobin A1C 5.5 % (4.0-6.0)
[2023-08-24 12:23] LABS: Erythrocyte Sedimentation Rate 5 mm/hr (0-20)
[2023-08-24 12:31] LABS: C-Reactive Protein 0.8 mg/L (0-4)
[2023-08-24 12:43] LABS: 25-OH Vitamin D, Total 29.1 ng/mL (30-100)
[2023-08-25 08:10] LABS: RA Latex Turbid. <10.0 IU/mL (<14.0)
[2023-08-26 13:18] LABS: Anti-Centromere B Antibodies <0.2 AI (0.0-0.9); Anti-Cyclic Citrullinated Pept 5 units (0-19); Anti-DNA (DS) Ab Qn <1 IU/mL (0-9); Anti-Jo-1 <0.2 AI (0.0-0.9); Anti-Smith Antibody <0.2 AI (0.0-0.9); Antichromatin Antibodies <0.2 AI (0.0-0.9); Antiscleroderma-70 Antibodies <0.2 AI (0.0-0.9); RNP Antibodies <0.2 AI (0.0-0.9); Sjogren's Anti-SS-A <0.2 AI (0.0-0.9); Sjogren's Anti-SS-B <0.2 AI (0.0-0.9)
== END 2023-08-24 23:59 | disposition home or self-care (01) ==
LOC: LAB 11:46
PROVIDERS: PCP Internal Medicine Adolescent Medicine; Visit Provider Nurse Practitioner Family
DX: E55.9 Vitamin D deficiency, unspecified (principal); M12.9 Arthropathy, unspecified; R20.2 Paresthesia of skin; R73.9 Hyperglycemia, unspecified; Z68.31 Body mass index [BMI] 31.0-31.9, adult
CPT/HCPCS: 36415; 82306; 83036; 85651; 86140; 86200; 86225; 86235; 86431

== ENCOUNTER 2023-08-30 09:53 | Outpatient (CLI) | payer BC, SELFPAY ==
--- NOTE | 2023-08-30 09:54 | MR_ITS ---
FINAL REPORT CLINICAL HISTORY: Back pain COMPARISON: CT thoracic spine 08/21/2023 FINDINGS: Multiplanar MR imaging of the thoracic spine was performed without and with contrast. On the sagittal T2-weighted images, there is abnormal decreased signal throughout many of the thoracic disks. The vertebrae are of normal height. There is no malalignment. The thoracic cord demonstrates normal signal and configuration. On the axial images, at the T6-7 level there is a tiny right paracentral disc protrusion. At the T7-8 level there is a right paracentral disc extrusion present, which extends mostly superior to the endplate level although there is minimal inferior extrusion as well. The margin of the extrusion enhances after contrast administration. This produces moderate right canal compromise, best seen on images #5 and 6 of series 10. On sagittal T2 postcontrast images there are 2 nonenhancing components within the region of enhancement, best seen on image #6 of series 12. The more superior of the 2 nonenhancing components may represent a small free fragment. At the T8-9 level there is a small annular bulge and mild bilateral neural foraminal narrowing. There is no marrow edema. IMPRESSION: T7-8 right paracentral disc extrusion as described above, with moderate right canal compromise and enhancement of the periphery of this extrusion. As described, there are 2 nonenhancing components within the extrusion, the more superior of which may represent a small free fragment. T6-7 tiny right paracentral disc protrusion, T8-9 small bulge with mild bilateral neural foraminal narrowing. Reviewed, Interpreted and Dictated by Arie Bazan MD Transcribed by Sandy Sibley Authenticated and [facility]
[2023-08-30] MEDS: GADOTERIDOL INJ 17ML SYRINGE 18 ML IV (11:28)
[2023-08-30] MEDS: SODIUM CHLORIDE 0.9% 10ML SYR (RAD ONLY) 10 ML IV (11:28)
== END 2023-08-30 23:59 | disposition home or self-care (01) ==
LOC: RAD 09:54
PROVIDERS: PCP Internal Medicine Adolescent Medicine; Visit Provider Specialist
DX: M54.6 Pain in thoracic spine (principal); M54.9 Dorsalgia, unspecified; R20.2 Paresthesia of skin; R29.898 Other symptoms and signs involving the musculoskeletal system; R20.0 Anesthesia of skin
CPT/HCPCS: 72157; A9576

== ENCOUNTER 2023-09-05 08:00 | Outpatient (RCR) | payer BC, SELFPAY ==
--- NOTE | 2023-08-23 10:29 | [facility].PTOPEV ---
PT Outpatient Evaluation Rehab PT Outpatient Evaluation Start: 08/23/23 09:09 Freq: Status: Active Protocol: Document 08/23/23 09:38 ELIAN (Rec: 08/23/23 10:28 ELIAN [id number]) E-signed By Jonathan Ruiz, PT Outpatient Therapy Subjective History Subjective History Pt reports h/o neck pain since , left > right sided pain, however, pt also reports intermittent episodes of ' hand then arm then total body tingling.' Pt also reports intermittent mid back pain and LBP, with intermittent left sided mid back pain that radiates into anterior rib cage area. Pt reports multiple imaging studies of head, neck , and back with most results revealing 'some disc issues.' Pt also reports extensive blood work, 'but no conclusive results.' Pt also reports fingernail pain and redness this am, 'which is new'. New diagnosis of cancer in past 12 No months? Chief Complaint Pain,Stiff,Paresthesia Symptom Type Ache,Dull,Numbness,Tingling, Other Symptoms Relieved By Rest/Positioning Symptoms Aggravated By Physical Activity Prior Functional Limitations Desk Work/Reading,Driving, Sleeping Current Functional Limitations Desk Work/Reading,Driving, Sleeping Symptom Description Constant but Variable Level of pain today (0-10) 3 Pain scale - at its best (0-10) 1 Pain scale - at its worst (0-10) 5 Cervical Eval Palpation Cervical Muscles R Cervical Paraspinal,L Cervical Paraspinal,R CT Junction,L CT Junction,R Upper Trapezius,L Upper Trapezius,R Thoracic Paraspinals,L Thoracic Paraspinals Cervical/Thoracic Palpation Findings Tenderness,Trigger Point, Muscle Guarding Posture Head/C-Spine Posture Sitting Position Neutral Position Head/C-Spine Posture Standing Position Neutral Position Flexibility Deficits Upper Trapezius Muscle Length (R) Moderate Tightness,(L) Moderate Tightness Levaetor Scapulae Muscle Length (R) Mild Tightness,(L) Mild Tightness Scalene Group Muscle Length (R) Moderate Tightness,(L) Moderate Tightness Passive Joint Mobility Cervical PIVM Dec: R C6/7 L C6/7 R C7/T1 L C7/T1 WNL: R OA L OA R AA L AA R C2/3 L C2/3 R C3/4 L C3/4 R C4/5 L C4/5 R C5/6 L C5/6 AROM Cervical Spine Extension Active Range of 0-50 Motion (degrees) Cervical Spine Flexion Active Range of 0-50 Motion (degrees) Cervical Spine Right Lateral Flexion 0-40 Active Range of Motion (degrees) Cervical Spine Left Lateral Flexion 0-35 Active Range of Motion (degrees) Cervical Spine Right Rotation Active 0-55 Range of Motion (degrees) Cervical Spine Left Rotation Active 0-55 Range of Motion (degrees) MMT Bilateral Deltoid (C5) 4 Good Biceps Brachii Strength Grade 5 Normal Wrist Extension Strength Grade 5 Normal Triceps Brachii Strength Grade 5 Normal Wrist Flexion Strength Grade 5 Normal Extensor Pollicis Longus Strength Grade 5 Normal Finger Abduction Strength Grade 5 Normal DTR Rt Biceps 1+ Lt Biceps 1+ Rt Brachioradialis 2+ Lt Brachioradialis 2+ Rt Triceps 2+ Lt Triceps 2+ Lumbopelvic Eval Posture Thoracic Spine Posture Standing Position Neutral Lumbar Spine Posture Standing Position Neutral Palapation tenderness bilateral lumbar spinal tenderness Yes: 2-3/4 paraspinal tenderness Yes: 2-3/4 Lumbar/Sacral Palpation Findings Tenderness Accessory Movement L4 bilateral L5 bilateral Neck Disability Index Neck Disability Index Section 1: Pain Intensity The pain is very mild at moment Section 2: Personal Care (washing, I can look after myself dressing, etc.) normally without causing extra pain Section 3: Lifting I cannot lift or carry anything Section 4: Reading I can't read as much as I want because of moderate pain in my neck Section 5: Headaches I have slight headaches, which come infrequently Section 6: Concentration I have a fair degree of difficulty in concentrating when I want to Section 7: Work I can only do my usual work, but no more Section 8: Driving I can drive my car as long as I want with moderate pain in my neck Section 9: Sleeping My sleep is moderately disturbed (2-3 hrs. sleepless) Section 10: Recreation I am able to engage in most, but not all of my usual recreation NDI Score 20 Outpatient Therapy Assessment Impairments Problems/Impairmments Palpation Tenderness,Impaired Range of Motion,Impaired Strength,Impaired Driving, Impaired Lifting,Impaired Household Care,Impaired Desk/ Computer Activities,Subjective C/O Pain,Impaired Self Care/ Self Management Prognosis Rehab Potential Good Clinical Impression Consistent with Diagnosis Yes Short Term Goals Number of Weeks 4 Decreased Palpation Tenderness Yes: 1-2/4 paraspinal mm Increase Range of Motion Yes: 75% of WFL CROM Increase Strength Yes: 4+/5 B/L SH MM Increase Ability to Drive/Ride in Car Yes: 30MIN Restore Ability to Lift Objects to Waist Yes: 10# Level Improve Ability For Household Care Yes: 30MIN Improve Tolerance to Desk/Computer Yes: 30MIN Activities Improve Neck Disability Index Score Yes: 15 Decrease Subjective C/O Pain Yes: 3/10 W/ABOVE ACTIVITIES Patient to be Ind w/ HEP Yes Machine Loader Goals Number of Weeks 6-8 Decreased Palpation Tenderness Yes: 0-1/4 PARASPINALS Increase Range of Motion Yes: WFL CROM Increase Strength Yes: 5/5 B/L SH MM Increase Ability to Drive/Ride in Car Yes: 60MIN Restore Ability to Lift Objects to Waist Yes: 20# Level Improve Ability For Household Care Yes: 60MIN Improve Tolerance to Desk/Computer Yes: 60MIN Activities Improve Neck Disability Index Score Yes: 10 Decrease Subjective C/O Pain Yes: 0-2/10 W/ABOVE ACTIVITIES Patient to be Ind w/ Advanced HEP Yes Outpatient Therapy Plan of Care Treatment Plan May Include Therapeutic Exercise Including Home Yes Exercise Program Manual Therapy Techniques Yes Neuromuscular Re-education Yes Therapeutic Activities to Return to Yes Previous Functional/Work Level ADL/Self Care Education Yes Mechanical Traction Yes Dry Needling Yes Thermal Modalities Yes Electrical Stimulation Yes Ultrasound/Phonophoresis Yes Eval/Re-Eval Yes Frequency Times per week 2-3 Duration Number of Weeks 6-8 Addendums This patient is a candidate for social No or vocational rehab? Patient/Guardian verbally acknowledges Yes understanding of treatment program and consents to further treatment? Patient/Guardian verbally acknowledges Yes understanding of diagnosis, prognosis and goals for treatment? Eval Complexity PT Charges 56465 - High Complexity Shoulder/Elbow Eval Shoulder Objective Measurements Elbow Objective Measurements PHYSICIAN CERTIFICATION: I certify the specified therapy services for Rossana Arzola are required, authorized, and reviewed every 30 days.
== END 2023-09-05 08:05 | disposition home or self-care (01) ==
LOC: PT 08:00
PROVIDERS: Visit Provider Nurse Practitioner Family
DX: M50.30 Other cervical disc degeneration, unspecified cervical region (principal); R20.2 Paresthesia of skin
CPT/HCPCS: 97010; 97014; 97110; 97140; 97163; G0283

== ENCOUNTER 2023-09-26 14:48 | Outpatient (CLI) | payer BC, SELFPAY ==
[2023-09-26 14:47] LABS: Microscopic, Urine URINE MICROSCOPIC (MICROSCOPIC)
[2023-09-26 15:26] LABS: Appearance,Urine CLEAR (Clear); Bilirubin,Urine Negative (Negative); Blood, Urine TRACE-I (Negative); Color,Urine YELLOW (Yellow); Glucose,Urine (UA) Negative (Negative); Ketones,Urine Negative (Negative); Leukocyte Esterase,Urine Negative (Negative); Nitrate,Urine Negative (Negative); Protein,Urine Negative (Negative); Specific Gravity, Urine 1.015 (1.005-1.030); Urobilinogen,Urine 0.2 EU/dl (0.2)
[2023-09-26 15:37] LABS: Chol/HDL Ratio 2.4 (1-3.5); Cholesterol 120 mg/dl (140-200); HDL Cholesterol 49 mg/dl (40-60); Triglycerides 87 mg/dl (30-150); VLDL Cholesterol 17 mg/dL (0-40)
[2023-09-26 15:48] LABS: Bacteria,Urine Trace /lpf; Squamous Epithelial Cell,Urine Occasional #/hpf (0-5)
[2023-09-26 16:01] LABS: Direct LDL Cholesterol 58.45 mg/dL (100-129)
[2023-09-28 08:33] LABS: Cancer Antigen (CA) 125 5.3 U/mL (0.0-38.1)
== END 2023-09-26 23:59 | disposition home or self-care (01) ==
LOC: LAB.DROPOF 14:48
PROVIDERS: PCP Nurse Practitioner Family; Visit Provider Nurse Practitioner Family
DX: E78.2 Mixed hyperlipidemia (principal); R82.2 Biliuria; Z12.9 Encounter for screening for malignant neoplasm, site unspecified
CPT/HCPCS: 36415; 80061; 81001; 86316; 87086

== ENCOUNTER 2024-02-11 09:09 | Outpatient (CLI) | payer BC, SELFPAY ==
[2024-02-11 09:49] LABS: Albumin Level 4.3 g/dl (3.5-5.0); Chloride 104 mmol/L (98-107); Potassium 4.5 mmoL/L (3.5-5.1); Sodium 139 mmol/L (136-145)
[2024-02-11 09:51] LABS: Blood Urea Nitrogen 16 mg/dl (7-17); Estimated Glomerular Filt Rate 79 ml/min (>60); GFR (African American) 96 ML/MIN (>60)
[2024-02-11 09:52] LABS: Alanine Aminotransferase 24 U/L (12-78); Albumin/Globulin Ratio 1.6 (1.1-1.8); Alkaline Phosphatase 85 U/L (38-126); Anion Gap 12.5 mEq/L (5-15); Aspartate Amino Transferase 22 U/L (14-36); Bilirubin,Total 0.4 mg/dl (0.2-1.3); Calcium 9.2 mg/dl (8.4-10.2); Carbon Dioxide 27 mmol/L (22.0-30.0); Chol/HDL Ratio 2.9 (1-3.5); Cholesterol 116 mg/dl (140-200); Globulin 2.7 g/dL (1.3-3.2); Glucose 99 mg/dl (74-100); HDL Cholesterol 40 mg/dl (40-60); Triglycerides 104 mg/dl (30-150); VLDL Cholesterol 21 mg/dL (0-40)
[2024-02-11 10:03] LABS: Direct LDL Cholesterol 49.31 mg/dL (100-129)
== END 2024-02-11 23:59 | disposition home or self-care (01) ==
LOC: LAB 09:10
PROVIDERS: PCP Internal Medicine; Visit Provider Emergency Medicine
DX: E78.00 Pure hypercholesterolemia, unspecified (principal)
CPT/HCPCS: 36415; 80053; 80061

== ENCOUNTER 2024-02-18 15:40 | Outpatient (CLI) | payer BC, SELFPAY ==
--- NOTE | 2024-02-18 15:44 | XR_ITS ---
FINAL REPORT CLINICAL HISTORY: left hand pain FINDINGS: Left hand Three views were obtained. There is no acute fracture or dislocation. The joint spaces appear normal. No soft tissue abnormality is identified. IMPRESSION: No acute process. Reviewed, Interpreted and Dictated by Arie Bazan MD Transcribed by Lucrecia Watts Authenticated and [facility]
--- NOTE | 2024-02-18 15:44 | XR_ITS ---
FINAL REPORT CLINICAL HISTORY: right hand cyst FINDINGS: Right hand Three views were obtained. There is no acute fracture or dislocation. The joint spaces appear normal. No soft tissue abnormality is identified. IMPRESSION: No acute process. Reviewed, Interpreted and Dictated by Arie Bazan MD Transcribed by Lucrecia Watts Authenticated and [facility]
== END 2024-02-18 23:59 | disposition home or self-care (01) ==
LOC: RAD 15:41
PROVIDERS: PCP Internal Medicine; Visit Provider Physician Assistant Surgical
DX: M79.641 Pain in right hand (principal); M79.642 Pain in left hand
CPT/HCPCS: 73130

== ENCOUNTER 2024-03-20 08:01 | Outpatient (CLI) | payer BC, SELFPAY ==
[2024-03-20 08:23] LABS: Basophils # 0.1 K/mm3 (0-0.2); Basophils % 1.3 % (0.1-2.0); Eosinophils # 0.1 K/mm3 (0.0-0.4); Eosinophils % 1.1 % (0.1-12.0); Hematocrit 43.7 % (37.0-47.0); Hemoglobin 14.4 g/dL (12.2-16.2); Lymphocytes # 1.7 K/mm3 (0.7-4.5); Mean Corpuscular HGB Conc 32.8 g/dL (31.8-35.4); Mean Corpuscular Hemoglobin 27.9 pg (27.0-31.2); Mean Corpuscular Volume 85.1 fl (81-99); Mean Platelet Volume 9.1 fl (7.4-10.4); Monocytes # 0.3 K/mm3 (0.1-1.0); Monocytes % 5.5 % (1.7-9.3); Neutrophils # 3.6 K/mm3 (1.8-7.8); Neutrophils % 63.1 % (37.0-80.0); Platelet Count 244 K/mm3 (142-424); Red Blood Count 5.14 M/mm3 (4.20-5.40); Red Cell Distribution Width 13.6 % (11.5-17.5); White Blood Count 5.8 K/mm3 (4.8-10.8)
[2024-03-20 08:46] LABS: Erythrocyte Sedimentation Rate 17 mm/hr (0-20)
[2024-03-20 08:54] LABS: Uric Acid 5.5 mg/dl (2.5-6.2)
[2024-03-20 09:06] LABS: Intact Parathyroid Hormone 89.7 pg/mL (7.5-53.5)
[2024-03-20 09:10] LABS: Free T4 (Free Thyroxine) 0.78 ng/dl (0.78-2.19)
[2024-03-20 09:25] LABS: Thyroid Stimulating Hormone 2.94 uIU/mL (0.465-4.68)
[2024-03-20 11:19] LABS: HIV (1&2) Antibody Rapid NONREACTIVE (NONREACTIVE)
[2024-03-21 09:14] LABS: HCV Ab Non Reactive (Non Reactive); RA Latex Turbid. <10.0 IU/mL (<14.0)
[2024-03-21 12:12] LABS: Thyroid Peroxidase Antibodies <9 IU/mL (0-34)
[2024-03-23 14:12] LABS: Antinuclear Antibodies, IFA Negative (.); Cytoplasmic (C-ANCA) <1:20 titer (Neg:<1:20); Perinuclear (P-ANCA) <1:20 titer (Neg:<1:20)
[2024-04-01 09:27] LABS: Antinuclear Antibodies (ANA) Negative; Thyroglobulin Level <1.0
== END 2024-03-20 23:59 | disposition home or self-care (01) ==
LOC: LAB 08:01
PROVIDERS: PCP Nurse Practitioner Family; Visit Provider Nurse Practitioner Family
DX: R00.0 Tachycardia, unspecified (principal); R20.0 Anesthesia of skin; R20.2 Paresthesia of skin; F41.9 Anxiety disorder, unspecified; E66.9 Obesity, unspecified; R53.83 Other fatigue; R20.8 Other disturbances of skin sensation; R79.89 Other specified abnormal findings of blood chemistry; M47.812 Spondylosis without myelopathy or radiculopathy, cervical region; Z11.59 Encounter for screening for other viral diseases; Z11.4 Encounter for screening for human immunodeficiency virus [HIV]
CPT/HCPCS: 36415; 82330; 83970; 84439; 84443; 84550; 85025; 85651; 86036; 86038; 86140; 86225; 86235; 86376; 86431; 86800; 86803; 87389

== ENCOUNTER 2024-03-27 13:23 | Outpatient (CLI) | payer BC, SELFPAY ==
--- NOTE | 2024-03-27 13:27 | MM_ITS ---
PROCEDURE INFORMATION: Exam: MG Bilateral Screening 3D Mammography Exam date and time: 03/27/2024 1:16 PM Age: 39 years old Clinical indication: Screening examination; . Family history of breast carcinoma. TECHNIQUE: Imaging protocol: Bilateral Screening tomosynthesis and 2D mammography including computer-aided detection (CAD) when performed. COMPARISON: 1. MG MM DIG SCREENING MAMM BI W/CAD 03/29/2023 10:15 AM 2. MG MM DIG MAMM DX UNILAT RT CAD 02/12/2022 1:58 PM 3. US BREAST LT COMPLETE 04/10/2023 10:58 AM FINDINGS: MAMMOGRAPHY: Breast composition: There are scattered areas of fibroglandular density. Mass: No suspicious masses. Architectural distortion: No suspicious distortion. Calcifications: No suspicious calcifications. Asymmetric density: None. Skin thickening: None. Axillary adenopathy: None. IMPRESSION: No mammographic evidence of malignancy. Annual screening is recommended unless otherwise clinically indicated. ASSESSMENT: BI-RADS Category 1: Negative.
== END 2024-03-27 23:59 | disposition home or self-care (01) ==
LOC: RAD 13:24
PROVIDERS: PCP Internal Medicine; Visit Provider Obstetrics & Gynecology
DX: Z12.31 Encounter for screening mammogram for malignant neoplasm of breast (principal)
CPT/HCPCS: 77063; 77067

== ENCOUNTER 2024-03-31 08:12 | Outpatient (CLI) | payer BC, SELFPAY ==
--- NOTE | 2024-03-31 08:12 | NM_ITS ---
FINAL REPORT CLINICAL HISTORY: hyperparathyroid 8:20AM 21.4 MCI TC SESTAMIBI FINDINGS: PARATHYROID SCAN The patient received a dose of 21.4 millicuries of technetium 99m sestamibi. Images over the neck were obtained initially and after a two-hour delay. No focal persistent activity is identified to suggest a parathyroid adenoma. IMPRESSION: No evidence of a parathyroid adenoma. Reviewed, Interpreted and Dictated by Olga Lazcano MD Transcribed by Pilar Ríos Authenticated and . [facility]
[2024-03-31] MEDS: ISO TC99M (SESTAMIBI);1 DOSE VIAL IV (08:45)
[2024-03-31] MEDS: SODIUM CHLORIDE 0.9% 10ML SYR (RAD ONLY) 10 ML IV (08:45)
== END 2024-03-31 23:59 | disposition home or self-care (01) ==
LOC: RAD 08:12
PROVIDERS: PCP Internal Medicine; Visit Provider Nurse Practitioner Family
DX: E21.3 Hyperparathyroidism, unspecified (principal)
CPT/HCPCS: 78070; A9500

== ENCOUNTER 2024-05-09 10:43 | Emergency (ER) | payer BC, SELFPAY ==
[2024-05-09 10:50] VITALS: BP 140/89; PULSE 89; RESP 19; TEMP 36.8; O2SAT 100; BMI 29.6
--- NOTE | 2024-05-09 11:37 | EXP.UTC ---
Discharge Plan Disposition Patient Disposition: Home, Self-Care Condition: Good Prescriptions Prescriptions: New clindamycin HCl 300 mg capsule 300 mg PO TID 7 Days Qty: 21 0RF No Action multivitamin with minerals Liquid 30 ml PO DAILY Patient Comments: Uyen Cai Multivitamin with hair growth vitamin D3-vitamin K2 125 mcg (5,000 unit)-100 mcg capsule 1 cap PO DAILY Mirena 20 mcg/24 hours (8 yrs) 52 mg intrauterine device 1 device intrauterine DIRECTED Ultra CoQ10 75 mg capsule 75 mg PO DAILY Qty: 90 3RF omega-3 fatty acids 500 mg capsule 1,000 mg PO DAILY Qty: 180 3RF propranolol 20 mg tablet 10 mg PO BID rosuvastatin 5 mg tablet 5 mg PO DAILY Qty: 30 2RF cetirizine [Zyrtec] 10 mg Tablet 10 mg PO DAILY Referrals Follow up/Referrals: Reno Mehta DO [Primary Care Provider] - See instructions Activity Restrictions/Add. Instructions Additional Instructions/Restrictions: *Start antibiotic(s) immediately and be sure to take as ordered for the FULL length of time although you may be feeling better or start to see improvement in the next 24-48 hours *Monitor closely. Outlined redness so that you can monitor easier. Follow up immediately for new or worsening symptoms including but not limited to redness, swelling, streaking from site fever or chills. *Warm compress 15 minutes 3-4 times day *Never squeeze or pop these on your own. Seek immediate medical attention next time this occurs *Monitor Temp. Tylenol every 4 hours as needed and ibuprofen every 6 hours as needed (as long as your primary care doctor has told you that it is ok to take both. For fever, aches, pain. ER if no less that 101 despite Tylenol and ibuprofen ?Follow up with your family doctor/primary care physician or Dermatology in the next 48-72 hours if no improvement Clinical Impressions Clinical Impression: Infected cyst of skin Instructions Patient Instructions: Clindamycin, DI for Cellulitis -- Adult Print Language Print Language: Setswana Discharge ED Provider: Uyen Mason [facility] HPI General Stated complaint: cyst on upper back Mode of Arrival: Ambulatory Source of Information: Patient Limitations: No Limitations Time Seen by Provider: 05/09/24 11:37 Description of Symptoms (Recalled from Triage Doc. by RN): PATIENT C/O INFECTED SEBACEOUS GLAND TO BACK SINCE YESTERDAY MORNING HEENT Symptoms (Recalled from RN notes): No Resp Symptoms (Recalled from RN notes): No Skin Symptoms (Recalled from RN notes): Yes MS Symptoms (Recalled from RN notes): No Functional Status (Recalled from RN notes): WNL History of Present Illness Provider Complaint: Patient states that at times she has a sebaceous cyst on her back that gets inflamed States that this happed a few years ago and she had to have antibiotics to get it cleared up so today when it was feeling sore, red and warm she came in to get it checked and get something for it Related Data Home Medications ?Medication ?Instructions ?Recorded ?Confirmed levonorgestrel (Mirena) 1 device intrauterine DIRECTED 03/13/22 05/09/24 control multivitamin with minerals 30 ml PO DAILY 09/26/23 05/09/24 propranolol 20 mg tablet 10 mg PO BID 09/26/23 05/09/24 vitamin D3 125 mcg (5,000 1 cap PO DAILY 09/26/23 05/09/24 unit)-vitamin K2 100 mcg capsule cetirizine 10 mg tablet (Zyrtec) 10 mg PO DAILY 05/09/24 05/09/24 Previous Rx's ?Medication ?Instructions ?Recorded coenzyme Q10 75 mg capsule (Ultra 75 mg PO DAILY #90 caps 08/23/23 CoQ10) omega-3 fatty acids 500 mg capsule 1,000 mg (2 x 500 mg) PO DAILY 08/23/23 #180 caps rosuvastatin 5 mg tablet 5 mg PO DAILY #30 tabs 05/07/24 clindamycin HCl 300 mg capsule 300 mg PO TID 7 days #21 caps 05/09/24 Allergies Allergy/AdvReac Type Severity Reaction Status Date / Time No Known Allergies Allergy Verified 05/07/24 09:37 Worker's Comp Is this a Worker's Comp case?: No [facility] Disclaimer: The information contained in this section may have been updated after the patient was seen, as this information can be updated by other users. Medical History Abnormal weight gain Acid reflux Acute upper back pain Angina pectoris Anxiety about health CAD (coronary artery disease) Chest pain Establishing care with new doctor, encounter for Gastroenteritis Hyperlipidemia Neck pain Occipital neuralgia of right side Paresthesias Pelvic pain Sinus tachycardia Strep throat Strep throat Vaginal yeast infection Weakness of left upper extremity Surgical History H/O LEEP History of section History of cholecystectomy S/P wisdom tooth extraction Family History Grandmother Cancer paternal Family/Other Cancer paternal Other Family history of hyperlipidemia Family history of hypertension Family history of myocardial infarction Social History Smoking Status: Never smoker alcohol intake: never substance use type: denies use current occupational status: other Travel in the last 8 weeks: Inside the [place] household members: spouse and children housing: house Have you lived/traveled outside US in past 30 days?: No Contact w/someone who lives/traveled outside US past 30 days?: No Exposure to someone with infectious disease in past 14 days?: No Do you have a fever (greater than 100.4 F or 38 C)?: No Have you tested positive for COVID-19: No Exposed to someone with COVID-19 in past 14 days?: No Do you have a sore throat?: No Do you have a cough?: No Do you have any weakness?: No Do you have any diarrhea?: No Are you experiencing any unusual bleeding?: No Do you have any muscle aches/pain?: No Do you have any abdominal pain?: No Are you experiencing loss of taste or smell?: No ROS Obtained: Yes All systems reviewed & no additional complaints except as documented and Yes Systems reviewed as appropriate & no additional complaints except as documented Constitutional Constitutional: Reports system reviewed and no additional complaints, except as documented and Reports as per HPI ENT Ears, Nose, Mouth, and Throat: Reports system reviewed and no additional complaints, except as documented and Reports as per HPI Cardiovascular Cardiovascular: Reports system reviewed and no additional complaints, except as documented and Reports as per HPI Respiratory Respiratory: Reports system reviewed and no additional complaints, except as documented and Reports as per HPI Gastrointestinal Gastrointestingal: Reports system reviewed and no additional complaints, except as documented and as per HPI Integumentary/Breasts Skin/Breast: Reports system reviewed and no additional complaints, except as documented, Reports as per HPI and Reports other Comments: infected/inflammed cyst on left bra line marisol on back Physical Exam General General appearance: alert and in no apparent distress ENT ENT exam: Present normal exam, normal oropharynx, mucous membranes moist and TM's normal bilaterally Chest Chest inspection: Present normal inspection and symmetric chest wall rise Respiratory Respiratory exam: Present normal lung sounds bilaterally; Absent respiratory distress or wheezes Cardiovascular Cardiovascular exam: Present regular rate, normal rhythm and normal heart sounds Abdominal Exam Abdominal exam: Present soft and normal bowel sounds; Absent distention or tenderness Neurological Exam Neurological exam: Present alert, oriented X3 and normal gait Skin Skin exam: Present other Expanded Skin Exam Type of lesion: Present other Body image: 1. red swollen area noted with mild surrounding redness tender to the touch Medical Decision Making Medical Records Screening: Per USPSTF and CDC recommendations, given the prevalence of disease in our region, it is our hospital?s policy to screen for HIV and viral Hepatitis for all patients aged 18 and over and those with ongoing risk factors. Ulisses Inquiry Pt receiving controlled substance: No Ulisses was queried for this patient: No Vital Signs: 05/09/24 10:50 Temperature 98.3 F Temperature Source Oral Pulse Rate [Left Brachial] 89 Respiratory Rate 19 Blood Pressure [Left Arm] 140/89 Blood Pressure Mean [Left Arm] 106 Blood Pressure Source [Left Arm] Automatic Cuff Blood Pressure Position [Left Arm] Sitting 02 Sat by Pulse Oximetry 100 Oxygen Delivery Method Room Air
[2024-05-09 11:57] VITALS: BP 140/89; PULSE 89; RESP 19; TEMP 36.8; O2SAT 100
== END 2024-05-09 12:04 | disposition home or self-care (01) ==
PROVIDERS: Emergency Provider Nurse Practitioner; PCP Internal Medicine
DX: L72.3 Sebaceous cyst (principal)
CPT/HCPCS: 99213; G0381

== ENCOUNTER 2024-05-15 10:59 | Outpatient (CLI) | payer BC, SELFPAY ==
--- NOTE | 2024-05-15 10:59 | US_ITS ---
FINAL REPORT CLINICAL HISTORY: Nodule on chest wall inferior to left breast FINDINGS: ULTRASOUND SOFT TISSUES OF THE LEFT ANTERIOR CHEST WALL TECHNIQUE: Limited sonographic imaging of the soft tissues of the left anterior chest wall were obtained. FINDINGS: No masses identified. There is no lymphadenopathy. No fluid collection is identified. IMPRESSION: No abnormality identified at the area of clinical interest. Reviewed, Interpreted and Dictated by Arie Bazan MD Transcribed by Shira Martinez Authenticated and . [facility]
== END 2024-05-15 23:59 | disposition home or self-care (01) ==
LOC: RAD 10:59
PROVIDERS: PCP Internal Medicine; Visit Provider Internal Medicine
DX: R22.2 Localized swelling, mass and lump, trunk (principal)
CPT/HCPCS: 76604

== ENCOUNTER 2024-06-04 17:00 | Outpatient (RCR) | payer BC, SELFPAY ==
--- NOTE | 2024-05-15 17:03 | HMH.PTOPEV ---
PT Outpatient Evaluation Rehab PT Outpatient Evaluation Start: 05/15/24 15:44 Freq: Status: Active Protocol: Document 05/15/24 16:29 ANNE-MARIE (Rec: 05/15/24 17:02 ANNE-MARIE [id number]) E-signed By Jaya Nino, PT Outpatient Therapy Subjective History Subjective History The patient is a 39 yof who presents to [facility] outpatient Physical Therapy with complaints of neck, upper back and L shoulder pain. The pt reports that the pain in her neck has been ongoing for quite some time and presents like a tensed muscle. She reports that when she has been sitting for too long, the pain goes up into the back of her head and into her temples. She reports that headaches are very common. The pt reports that the pain in her upper back has only been going on for a few months. She reports that it starts in the center of her back, into her L shoulder blade and wraps around her ribs, almost like a line of pain. The pt reports that sitting for longer periods exacerbates her symptoms. She also reports that she had an ultrasound just under her L breast this morning but has not gotten the results yet. 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 The pt reports no other pertinent medical conditions. New diagnosis of cancer in past 12 No months? Chief Complaint Pain Symptom Type Ache,Shooting Symptoms Relieved By Rest/Positioning Symptoms Aggravated By Prone,Supine,Sitting,Bending/ Stooping Prior Functional Limitations None Current Functional Limitations Housework,Dressing,Desk Work/ Reading,Driving,Sitting Symptom Description Intermittent Level of pain today (0-10) 1 Pain scale - at its best (0-10) 1 Pain scale - at its worst (0-10) 5 Cervical Eval Palpation Cervical Muscles R Cervical Paraspinal,L Cervical Paraspinal,R Suboccipital,L Suboccipital,R CT Junction,L CT Junction,L Upper Trapezius,R Thoracic Paraspinals,L Thoracic Paraspinals Cervical/Thoracic Palpation Findings Tenderness Flexibility Deficits Upper Trapezius Muscle Length (R) Mild Tightness,(L) Moderate Tightness Pectoralis Minor Muscle Length (R) Moderate Tightness,(L) Moderate Tightness Passive Joint Mobility Cervical PIVM Dec: R C2/3 L C2/3 R C3/4 L C3/4 R C4/5 L C4/5 R C7/T1 L C7/T1 AROM Cervical Spine Extension Active Range of 30 Motion (degrees) Cervical Spine Flexion Active Range of 45 Motion (degrees) Cervical Spine Right Lateral Flexion 20 Active Range of Motion (degrees) Cervical Spine Left Lateral Flexion 20 Active Range of Motion (degrees) Cervical Spine Right Rotation Active 70 Range of Motion (degrees) Cervical Spine Left Rotation Active 70 Range of Motion (degrees) MMT Left Deltoid (C5) 3+ Fair+ Biceps Brachii Strength Grade 5 Normal Wrist Extension Strength Grade 5 Normal Triceps Brachii Strength Grade 5 Normal Wrist Flexion Strength Grade 5 Normal Extensor Pollicis Longus Strength Grade 5 Normal Finger Abduction Strength Grade 5 Normal DTR Rt Biceps 2+ Lt Biceps 2+ Rt Brachioradialis 2+ Lt Brachioradialis 2+ Rt Triceps 2+ Lt Triceps 2+ Altered Sensation Bilateral Upper extremity Dermatomes C4,C5,C6,C7,C8,T1 Comment Intact Bilaterally Special Test C-Spine Foraminal Compression ([place]) Negative Left,Negative Right Test C-spine Verterbral Accessory Movements Central P/A [place],Right P/A that Elicit Symptoms [place],Left P/A [place] C-Spine Foraminal Distraction Test Negative C-Spine Compression Test Negative Left,Negative Right C-Spine Swallowing Test Negative Right Shoulder Abduction Relief Test Negative Left,Negative Right Shoulder Brachial Plexus Stretch Test Negative Left,Negative Right Neck Disability Index Neck Disability Index Section 1: Pain Intensity The pain is very mild at moment Section 2: Personal Care (washing, I can look after myself dressing, etc.) normally without causing extra pain Section 3: Lifting I can only lift very light weights Section 4: Reading I can read as much as I want to with slight pain in my neck Section 5: Headaches I have slight headaches, which come infrequently Section 6: Concentration I have a fair degree of difficulty in concentrating when I want to Section 7: Work I can do as much work as I want to Section 8: Driving I can drive my car without any neck pain Section 9: Sleeping My sleep is moderately disturbed (2-3 hrs. sleepless) Section 10: Recreation I am able to engage in all my recreation activities with some pain in NDI Score 13 Miscellaneous Dx PT Eval Objective Objective Deep Cervical Flexor Endurance Test: 3 seconds B Rhomboids, LT: 2+/5 Outpatient Therapy Assessment Impairments Problems/Impairmments Palpation Tenderness,Impaired Range of Motion,Impaired Strength,Impaired Sitting, Impaired Household Care, Impaired Recreational Activities,Subjective C/O Pain Prognosis Rehab Potential Good Comment The pt presents with hypomobility throughout the cervical spine and thoracic spine. The pt demonstrates excessive kyphosis and rounded shoulders. The pt demonstrates signs and symptoms consistent with neck pain with headaches. The pt also demonstrates signs and symptoms consistent with thoracic spine pain with radiating pain, given the unilateral nature of her thoracic spine pain. The pt would benefit from skilled PT with an emphasis on improving ROM, muscle imbalances and posture. Clinical Impression Consistent with Diagnosis Yes Short Term Goals Number of Weeks 4 Decreased Palpation Tenderness Yes: 1/4 to C-Spine and Thoracic Spine Increase Range of Motion Yes: 75% WNL CROM Increase Strength Yes: 4/5 to B rhomboids and LT Increase Endurance Yes: DCNF: 15 seconds Increase Ability to Sit Yes: 30 minutes without increasing pain Improve Neck Disability Index Score Yes: to 6 Decrease Subjective C/O Pain Yes: 3/10 with above activities Patient to be Ind w/ HEP Yes Client Service Representative Goals Number of Weeks 8 Decreased Palpation Tenderness Yes: 0/4 to C Spine and thoracic spine Increase Range of Motion Yes: 100% WNL CROM Increase Strength Yes: 5/5 to B Rhomboids and LT Increase Endurance Yes: DCNF: 30 seconds Increase Ability to Sit Yes: 1 hour without increasing pain Improve Neck Disability Index Score Yes: to 2 Decrease Subjective C/O Pain Yes: 10 with above activities Patient to be Ind w/ Advanced HEP Yes Outpatient Therapy Plan of Care Treatment Plan May Include Therapeutic Exercise Including Home Yes Exercise Program Manual Therapy Techniques Yes Neuromuscular Re-education Yes Therapeutic Activities to Return to Yes Previous Functional/Work Level Gait Training Yes ADL/Self Care Education Yes Mechanical Traction Yes Dry Needling Yes Thermal Modalities Yes Electrical Stimulation Yes Ultrasound/Phonophoresis Yes Manual Lymphatic Drainage Yes Eval/Re-Eval Yes Frequency Times per week 2 Duration Number of Weeks 8 Addendums This patient is a candidate for social No or vocational rehab? Patient/Guardian verbally acknowledges Yes understanding of treatment program and consents to further treatment? Patient/Guardian verbally acknowledges Yes understanding of diagnosis, prognosis and goals for treatment? Eval Complexity PT Charges 81606 - Moderate Complexity Shoulder/Elbow Eval Shoulder Objective Measurements Elbow Objective Measurements PHYSICIAN CERTIFICATION: I certify the specified therapy services for Rossana Arzola are required, authorized, and reviewed every 30 days.
== END 2024-06-04 23:59 | disposition home or self-care (01) ==
LOC: PT 17:00
PROVIDERS: PCP Internal Medicine; Visit Provider Internal Medicine
DX: M54.2 Cervicalgia (principal)
CPT/HCPCS: 97012; 97014; 97110; 97140; 97163; 97530; G0283

== ENCOUNTER 2024-06-15 17:00 | Outpatient (RCR) | payer BC, SELFPAY ==
--- NOTE | 2024-06-15 17:56 | HMH.RHREAS ---
Rehab Reassessment Rehab OP Re-assessment Start: 06/11/24 16:20 Freq: Status: Active Protocol: Document 06/15/24 17:17 ANNE-MARIE (Rec: 06/15/24 17:56 ANNE-MARIE [id number]) E-signed By Jaya Nino, PT Neck Disability Index Neck Disability Index Section 1: Pain Intensity The pain is very mild at moment Section 2: Personal Care (washing, I can look after myself dressing, etc.) normally without causing extra pain Section 3: Lifting I can lift heavy weights but it gives extra pain Section 4: Reading I can read as much as I want to with slight pain in my neck Section 5: Headaches I have moderate headaches, which come infrequently Section 6: Concentration I can concentrate fully when I want to with slight difficulty Section 7: Work I can do as much work as I want to Section 8: Driving I can drive my car as long as I want with slight pain in my neck Section 9: Sleeping My sleep is midly disturbed (1 -2 hrs sleepless) Section 10: Recreation I am able to engage in all my recreation activities with some pain in NDI Score 10 Rehab Re-assessment Subjective Subjective Pt reports, I have improved approximately 50% at this time . She reports that she has definitely noticed improved shoulder and upper back issues . She reports that she continues to have stiffness into her neck at this time, especially during a long day at work. She reports that she does think therapy has helped a lot. She reports that she was improved more but she has been carrying her son a lot more which has seemed to cause her to start hurting more. She reports a current pain of 2/10. Objective Objective Notes ROM: 75% WNL of CROM Strength: Rhomboids 4/5 B TTP: 05/09 to C Spine NDI: 10 (10 on IE) DCNF: 17s Assessment Progress Assessment Progressing as Expected Assessment Notes Pt has made some progress at this time. She has demonstrated some improvements in cervical spine ROM, strength, pain and reported improvement. She continues to present below baseline in these areas. Skilled PT remains indicated at this time . Patient goals met ST,2,3,4,6,[address] ST,7 LT-8 Plan Plan Continue as per initial POC Frequency of Therapy 2 Duration of therapy 4 Time and Billing Re-Eval Time 9 Re-Eval Billing Units 1 Charge for PT reassessment? Yes PHYSICIAN CERTIFICATION: I certify the specified therapy services for Rossana Arzola are required, authorized, and reviewed every 30 days.
== END 2024-06-15 23:59 | disposition home or self-care (01) ==
LOC: PT 17:00
PROVIDERS: PCP Internal Medicine; Visit Provider Internal Medicine
DX: M54.2 Cervicalgia (principal)
CPT/HCPCS: 97014; 97110; 97140; 97164; 97530; G0283

== ENCOUNTER 2024-07-10 10:56 | Outpatient (CLI) | payer BC, SELFPAY | END 2024-07-10 23:59 | disposition home or self-care (01) | LOC: LAB.DROPOF 07-11 10:57 | PROVIDERS: PCP Internal Medicine; Visit Provider Internal Medicine | DX: N39.0 Urinary tract infection, site not specified (principal) | CPT/HCPCS: 87086 ==

== ENCOUNTER 2024-09-23 12:10 | Outpatient (CLI) | payer BC, SELFPAY ==
--- NOTE | 2024-09-23 12:15 | XR_ITS ---
FINAL REPORT CLINICAL HISTORY: left foot pain and swelling FINDINGS: LEFT FOOT Three views were obtained. There is no fracture or dislocation. The joint spaces appear normal. No soft tissue abnormality is identified. IMPRESSION: No acute process. Reviewed, Interpreted and Dictated by Rosalinda Henderson MD Transcribed by Lucrecia Watts Authenticated and . [facility]
--- NOTE | 2024-09-23 12:15 | XR_ITS ---
FINAL REPORT CLINICAL HISTORY: BLE foot pain and swelling FINDINGS: RIGHT FOOT Three views were obtained. There is no fracture or dislocation. The joint spaces appear normal. No soft tissue abnormality is identified. IMPRESSION: No acute process. Reviewed, Interpreted and Dictated by Rosalinda Henderson MD Transcribed by Lucrecia Watts Authenticated and [facility]
--- NOTE | 2024-09-23 12:15 | XR_ITS ---
FINAL REPORT CLINICAL HISTORY: dyspnea COMPARISON: 06/28/2023 FINDINGS: No acute pulmonary density is evident. There is no evidence of effusion or other pleural disease. The mediastinum has a normal appearance. The cardiac silhouette is unremarkable. IMPRESSION: Unremarkable chest exam. Reviewed, Interpreted and Dictated by Rosalinda Henderson MD Transcribed by Lucrecia Watts Authenticated and [facility]
== END 2024-09-23 23:59 | disposition home or self-care (01) ==
LOC: RAD 12:11
PROVIDERS: PCP Nurse Practitioner Family; Visit Provider Nurse Practitioner Family
DX: M25.471 Effusion, right ankle (principal); M25.472 Effusion, left ankle; M25.474 Effusion, right foot; M25.475 Effusion, left foot; R06.00 Dyspnea, unspecified
CPT/HCPCS: 71046; 73630

== ENCOUNTER 2024-10-05 10:14 | Outpatient (CLI) | payer BC, SELFPAY ==
--- NOTE | 2024-10-05 10:15 | CA_ITS ---
APPROVED REPORT EXAM: Comprehensive 2D, Doppler, and color-flow Echocardiogram [place] Hand: Vivian Lucero RVT Ht: 5 ft 7 in Wt: 201lbs BSA: 2.03 BP: 130/86 mmHg Indications: EDEMA,SOA,EX SMOKER 2D Dimensions LA Volume 28.80 mL LA Volume Index 14.19 mL/m2 (M/F) 16-34 M-Mode Dimensions RVDd 2.78 cm (0.9-2.6) LA Diam 3.18 cm (1.9-4.0) LVDd 3.96 cm (3.5-5.7) LVDs 2.58 cm (3.5-5.7) IVSd 0.77 cm (0.6-1.1) PWd 0.44 cm (0.6-1.1) EF (Teich) 64.70% FS 34.80% EDV (Teich) 68.30 mL TAPSE 2.14 (<1.7) ESV (Teich) 24.10 mL LV Diastology E Decel Time 200 (160-240 msec) E/A Ratio 1.3 Aortic Valve MARZENA Index 0.86 cm2/m2 AoV Peak Dano. 161.0 (50-130 cm/s) AO Peak GR. 10.30 mmHg AO Mean GR. 5.60 (<5 mmHg) AO VTI 33.9 (18-25 cm) MARZENA (VTI) 1.78 (2.5-4.5 cm2) Mitral Valve MV E Max Dano. 79.0 (40-130 cm/s) MV A Velocity 59.0 (40-130 cm/s) E/A Ratio 1.34 MV PHT 59.0 ms Pulmonary Valve PV Peak Velocity 79.0 (50-150 cm/s) Tricuspid Valve TR P. Velocity 247.00 cm/s RAP Estimate 10.00 mmHg RVSP 34.40 mmHg Left Ventricle The left ventricle is normal size. The left ventricular systolic function is normal. The left ventricular ejection fraction is within the normal range. There is normal left ventricular wall thickness. There is normal LV segmental wall motion. The left ventricular diastolic function is normal. LVEF is 55%. Right Ventricle The right ventricle is normal size. The right ventricular systolic function is normal. Atria The left atrium size is normal. The right atrium size is normal. There is no Doppler evidence of interatrial shunt. Aortic Valve The aortic valve opens well. There is no aortic valvular stenosis. No aortic regurgitation is present. Mitral Valve The mitral valve is normal in structure. No evidence of mitral valve stenosis. Mild mitral regurgitation. Tricuspid Valve Tricuspid valve is grossly normal in structure and function. Trace tricuspid regurgitation. There is insufficient TR jet to estimate RVSP. Pulmonic Valve The pulmonary valve is normal in structure. Trace pulmonic regurgitation. Great Vessels The aortic root is normal in size. IVC is normal in size and collapses >50% with inspiration. Pericardium There is no pericardial effusion. Other Information Study Quality: Fair Conclusion Normal biventricular systolic function. Mild MR. Electronically signed by : Anju Syed MD 10/12/2024 23:52:59
--- OUTSIDE RECORDS SUMMARY | 2024-10-05 10:16 | XMS_ITS ---
Author Organization Unknown Medications Medication Instructions Effective Dates (start - stop) Status atorvastatin 40 MG Oral Tablet 2 729-05-02V08:00:00.000+00:0 0 - Completed atorvastatin 40 MG Oral Tablet 2 881-10-21B35:00:00.000+00:0 0 - Completed {6 (azithromycin 250 MG Oral Tablet) } Pack 4644-64-05X85:00:00.000+00:0 0 - Completed amoxicillin 500 MG Oral Capsule 9807-55-26E15:00:00.000+00:0 0 - Completed omeprazole 20 MG Delayed Rel ease Oral Capsule 5166-10-05M93:00:00.000+00:0 0 - Completed amoxicillin 875 MG Oral Tablet 2 293-85-39P22:00:00.000+00:0 0 - Completed prednisone 20 MG Oral Tablet 07-07-15:00:00.000+00:0 0 - Completed fluticasone propionate 0.05 MG/ACTUAT Metered Dose Nasal [place] 0729-28-50S53:00:00 .000+00:0 0 - Completed atorvastatin 40 MG Oral Tablet 2 267-10-99G35:00:00.000+00:0 0 - Completed metformin hydrochloride 500 MG Oral Tablet 8421-11-57W95:00:00.000+00:0 0 - Completed cyclobenzaprine hydrochlorid e 10 MG Oral Tablet 0917-19-77W45:00:00.000+00:0 0 - Completed prednisone 20 MG Oral Tablet 06-13-22:00:00.000+00:0 0 - Completed omeprazole 40 MG Delayed Rel ease Oral Capsule 2300-69-19S90:00:00.000+00:0 0 - Completed atorvastatin 40 MG Oral Tablet 2 883-24-42Q26:00:00.000+00:0 0 - Completed benzonatate 100 MG Oral Capsule 1327-12-14E72:00:00.000+00:0 0 - Completed bisoprolol fumarate 5 MG Ora l Tablet 1845-45-41F68:00:00.000+00:0 0 - Completed polyethylene glycol 3350 240 000 MG / potassium chloride 2980 MG / sodium bicarbonate 6720 MG / sodium chloride 5840 MG / sodium sulfate 57001 MG Powder for Oral Solution [GaviLyte-C] 0892-73-15R75:00:00.000+00:0 0 - Completed Patient Care team information Name Category Status Period Participants - - Proposed period not known -
--- OUTSIDE RECORDS SUMMARY | 2024-10-05 10:17 | XMS_ITS | Data Portability ---
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 She reports a history of familial hypercholesterolemia and CAD. She also reports recent/frequent use of NSAIDS.: 1) Right sided abdominal pain -CTA of abdomen for evaluation of possible mesenteric ischemia. Median arcuate ligament syndrome should also be considered. -Start omeprazole x 6 weeks for potential prophylactic ulcer treatment due to large intake of NSAIDs around onset of abdominal pain. -Will schedule EGD/colon if needed based on CT scan results. Patient reports she is hesitant about scopes at this time. 2) Constipation -Ingest 20 to 30g of insoluble fiber per day, add fiber supplement as needed to help bulk stool. -Can add miralax as needed if not having daily bowel movements. -Drink plenty of water (1.5-2 liters per day) -Refrain from straining or lingering (eg reading) on the toilet. -Practice regular physical exercise. -Limit intake of fatty foods and alcohol, which can exacerbate constipation Not available 06/11/2022 16:59:06 Plan of Treatment Reminders Order Date Submit Date Provider Last Modified By Organization Details Last Modified Time Details Appointments None recorded. Lab None recorded. Referral None recorded. Procedures None recorded. Surgeries None recorded. Imaging CT, angiogram, abdomen, w/ contrast 2022 023 [facility] (Scheduling), [address], [place], [address], 3 12:51:59 Medication Orders omeprazole 40 mg capsule,del ayed release 2022 023 [facility], [address] [facility], [place], [address], 3 16:05:51 Patient TargetsNo targets recorded. Patient InstructionsNo instructions recorded. Reason for Referral None Reported. Results Created Date Observation Date Name Description Value Unit Range Abnormal Flag Note LastModifiedBy Organization Detail LastModifiedTime 07/18/19 23 07/17/2022 CT, angio gram, abdom en, w/ contr ast No observ ation record ed. [email or web address] [facility] [address], [place], [address], 07/30/2022 16:59:47 Result Notes None recorded. Problems Name Problem SNOMED Code Status Onset Date Resolution Date Notes Provider Name and Address Organization Details Recorded Time Arterioscl erotic vascular disease 03457520 Active [address], [place], [address] , [facility] [place] 3 15:56:32 Atheroscle rosis of coronary artery without angina pectoris 4731118108571 03 Active [address], [place], [address] , [facility] & [place] 3 15:58:33 Constipati on 99953641 Active [address], [place], [address] , [facility] - [facility] & [place] 3 15:58:51 Familial hyperchole sterolemia 474039292 Active [address], [place], [address] , [facility] - [facility] & [place] 3 16:57:10 Chronic idiopathic constipati on 41447362 Active 2022 Miguel Sibley PA-C [address] [facility], [place], [address] , [facility] - [place] & [place] 3 16:50:56 Problem Notes None recorded. Medical Equipment None Reported. Allergies No known drug allergies Medications Name Sig Start Date Stop Date Status Note LastModified by Organization Details LastModified Time cyclobenzaprin e 10 mg tablet active Not Available Not Availab le Not Available amoxicillin 500 mg capsule active Not Available Not Availab le Not Available atorvastatin 40 mg tablet TAKE 1 TABLET BY MOUTH ONCE DAILY active Not Available Not Available No t Available metformin 500 mg tablet TAKE 1 TABLET BY MOUTH ONCE DAILY WITH FOOD active Not Available Not Available No t Available azithromycin 250 mg tablet TAKE 2 TABLETS BY MOUTH ON DAY 1, AND THEN TAKE 1 TABLET BY MOUTH ONCE A DAY ON DAY 2 THROUGH DAY 5 active Not Available Not Available No t Available prednisone 20 mg tablet TAKE 1 TABLET BY MOUTH TWICE DAILY FOR 3 DAYS active Not Available Not Available No t Available phentermine 37.5 mg tablet Take one tablet by mouth daily (30 minutes before or 1-2 hour(s) after breakfast ). active Not Available Not Available No t Available sulfamethoxazo le 800 mg-trimethopri m 160 mg tablet TAKE 1 TABLET BY MOUTH TWICE DAILY FOR 10 DAYS active Not Available Not Available No t Available omeprazole 40 mg capsule,delaye d release Take 1 capsule by mouth 30 minutes before morning meal, 42 days active Not Available Not Available No t Available bisoprolol fumarate 5 mg tablet TAKE 1 TABLET BY MOUTH ONCE DAILY active Not Available Not Available No t Available amoxicillin 875 mg tablet TAKE 1 TABLET BY MOUTH EVERY 12 HOURS active Not Available Not Available No t Available benzonatate 100 mg capsule TAKE 1 CAPSULE BY MOUTH THREE TIMES DAILY NEEDED FOR COUGH active Not Available Not Available No t Available omeprazole 20 mg capsule,delaye d release TAKE 1 CAPSULE BY MOUTH ONCE DAILY active Not Available Not Available No t Available fluticasone propionate 50 mcg/actuation nasal spray,suspensi on USE 1 SPRAY(S) IN EACH NOSTRIL ONCE DAILY active Not Available Not Available No t Available Gavilyte-C 240 gram-22.72 gram-6.72 gram-5.84 gram oral solution MIX AND DRINK 8 OZ EVERY 15 MINUTES UNTIL EMPTY DIRECTED active Not Available Not Available No t Available Linzess 72 mcg capsule Take 1 capsule every day by oral route for 30 days. 2022 active Not Available Not Available Not Avai lable Vitals Date Recorded Body weight Heart rate Systolic blood pressure Diastolic blood pressure Provider Name and Address Organization Details Last Updated DateTime 06/11/2022 62389.37 g 72 /min 124 mm[Hg] 71 mm[Hg] Yue Friedman [facility] & [place] 06/11/2022 15:45:24 Social History None recorded. Functional Status None recorded. Mental Status None recorded. Family History Nothing Reported. Medical History No medical history recorded. Gynecological HistoryNo gynecological history recorded. Obstetrics History GPAL:G 0 P 0 0 0 0 Past Encounters Encounter ID Performer Location Encounter Start Date Encounter Closed Date Diagnosis/Indication Diagnosis SNOMED-CT Code Diagnosis ICD10 Code Diagnosis Note [id number] Miguel Sibley PA-C [facility] [address] [address] 06/11/2022 15:06:57 06/11/2022 15:52:54 Right sided abdominal pain 035834538 R10.9 Atheroscle rosis of coronary artery without angina pectoris 2883372632 32736 I25.10 Constipation 96311469 K5 9.00 Familial hypercholesterolemia 697574251 E78.01 Health Concerns Section Related Observation LastModified by Organization Detai ls LastModified Time None Recorded Concern Status LastModified by Organization Details LastModified Time None Recorded Advance Directives Directive None Recorded Payers Insurance Date Sequence Insurance Name Policy Number Policy Talbot Covered Member ID Talbot Member ID Guarantor Name 11/26/2022 1 [place] [id number] 7 Rossana Arzola [id number] Rossana Arzola Notes Date Note Type Note Provider Name and Address Organization Details Recorded Time 3 text/html Ms. Arzola is a 37 [id number] who was referred by Dr. Valerio. She presents to the clinic today with right sided abdominal pain. The patient reports constant right sided abdominal pain since January that worsens with eating, stress, and is sensitive to tight clothing. The patient states she had her gallbladder removed in 2006. She reports laying flat makes her pain worse. She reports she was started on 800mg ibuprofen TID in January due to possible muscle strain. She also reports being started on aspirin shortly after for CAD. She has known arthersclerotic disease and likely familial hypercholesterolemia disease per her report. She denies nausea, vomiting, hematemesis or hematochezia. Miguel Sibley PA-C [address], [place], [address], [facility] - [place] & [place] 06/11/2022 16:59:34 OBGyn Episode No OBEpisode recorded.
--- OUTSIDE RECORDS SUMMARY | 2024-10-05 10:17 | XMS_ITS | Data Portability ---
Author Organization JOYD SHUKRI Galeano [facility] Address [address] [facility] [address] [place] [address] Care Team Providers Care Ambulance Dispatcher Name Role Phone GLORIA LAL Referring Provider Assessment Encounter Date Assessment Date Assessment LastModified by Organization Details LastModified Time 09/06/2023 09/06/2023 ASSESSMENT: Ms. Arzola is a pleasant 38-year-old female who presents to the office today accompanied by her daughter for evaluation of some very unusual symptoms that she has been dealing with since November of last year. She reports having facial and scalp numbness and tingling and was evaluated with a cervical MRI and told she had a bad neck and she has been doing home traction, yoga, and massage which has helped a lot of the symptoms. However, in March of last year she developed pain wrapping around mostly her left chest under her breast but would also wraparound somewhat on both sides and she was told this could be a thoracic issue. She does report that they did a cardiac workup to rule that out as a source of her symptoms. In June of this year, she started to appreciate numbness into her left pinky finger that was extended up her lateral arm towards her neck and that with sitting she would appreciate numbness between her shoulder blades. Three weeks ago she had an occurrence when she turned her head that she had a tingling sensation from her head to her toes for a few seconds that resolved immediately and then she felt cold all over. She was evaluated in the emergency department at that time. That occurred 1 other time, again when she turned her head, and her neurologist referred her to the emergency department again. Now she reports some numbness around her bra line area and tightness up into her neck and that when she has increased pain in her thoracic area this will spread around her chest beneath her breast. That also seems to be when she appreciates more numbness into the fifth digit of her left hand but she reports another provider told her that could be related to an ulnar nerve entrapment. She reports since this occurrence 3 weeks ago, when she has been doing home exercises that she learned from physical therapy, her symptoms have significantly improved but she has stopped attending formal therapy until she was evaluated by our office as she was concerned that they could possibly do additional damage. She reports initially with therapy if she extended her head back she would have an immediate headache and she is no longer having that issue. She denies any bowel or bladder control issues. She denies any issues with her balance or dexterity. IMAGING: Cervical MRI taken 11/07/2022 and thoracic MRI taken 08/30/[address] [facility]. Ureña and I have reviewed the images personally and read the radiologist's report. Her cervical MRI shows no significant central or neural compression and minimal degenerative changes, she did have a copy of that report on her phone that I reviewed. Her thoracic MRI reveals a rightward disc protrusion at T6-7 and T7-8 that again does not reveal any central or foraminal compression. She is given the CD of these images back to keep Dr. Ureña was consulted on this case for imaging review and plan of care development. Nurse practitioner visit PLAN: Follow-up with our office as needed moving forward. I spoke at length with Corine Dariusz that the cervical MRI she had done last November looks very good and does not reveal any indication for the numbness she has into her hand but that it could be related to an ulnar nerve issue. We also discussed that Dr. Ureña and I reviewed her thoracic MRI and while there is a disc protrusion, this is not causing significant compression centrally or foraminally. As such, he would not recommend any surgical intervention and would encourage for her to continue to manage this conservatively with therapy or if it got to be more painful we could refer her to pain management. We did discuss if the symptoms into her upper extremity or neck were to continue to worsen we would want to update her cervical MRI as it is almost a year old. She does feel that the tingling from head to toe that she has experienced only twice was more of an anxiety response to her concern that something was going on. She verbalized understanding of these instructions and is agreeable to this plan. She has no further questions or concerns at this time. She is satisfied with this plan of care. [email or web address] Not available 09/06/2023 16:27:08 Plan of Treatment Reminders Order Date Submit Date Provider Last Modified By Organization Details Last Modified Time Details Appointments None record ed. Lab None record ed. Referral None record ed. Procedures None record ed. Surgeries None record ed. Imaging None record ed. Medication Orders None record ed. Patient TargetsNo targets recorded. Patient Instructions Encounter Date Encounter Id Patient Instructions Last Modified By Organization Details Last Modified Time 09/06/2023 [id number] CATEGORY DESCRIPTION MINUTES Prepare to see the patient (e.g. review of tests) 10 Obtain/review separately obtained history 5 Perform medically appropriate exam/evaluation 5 Order medications, tests, or procedures Fire Fighter/educate the patient/family/car egiver 15 Refer/communicate w/other healthcare professionals 5 Document clinical information into health record 5 Non-billable independent interp of results Non-billable care coordination TOTAL TIME 45 [id number] (15-29) 15343 (30-44) 92181 (45-59) 17369 (60-74) 00701 62148 (10-19) 44903 (20-29) 72151 (30-39) 75537 (40-54) Not available 09/06/2023 16:25:27 Reason for Referral None Reported. Results Created Date Observation Date Name Description Value Unit Range Abnormal Flag Note LastModifiedBy Organization Detail LastModifiedTime 08/26/1908/21/2023 CT, thora cic spine , w/o contr ast No observ ation record ed. [email or web address] Not Available 2023 08:07:58 08/26/1908/21/2023 CT, angio gram, neck, w/ contr ast No observ ation record ed. [email or web address] Not Available 2023 08:09:03 08/26/1908/21/2023 CT, angio gram, head, w/ contr ast No observ ation record ed. [email or web address] Not Available 2023 08:10:05 08/26/1908/21/2023 CT, head + brain , w/o contr ast No observ ation record ed. [email or web address] Not Available 2023 08:10:47 08/26/19 08/21/2023 CT, angio gram, chest , w/ contr ast No observ ation record ed. [email or web address] Not Available 2023 08:11:33 08/26/19 24 08/19/2023 XR, thora cic spine , 3 view No observ ation record ed. [email or web address] Not Available 2023 08:12:05 09/04/19 24 08/30/2023 CT, thora cic spine , w/o contr ast No observ ation record ed. [address], [place], [address], 09/05/2023 08:36:30 09/06/19 24 08/19/2023 MR, angio gram, head + neck, w/o contr ast No observ ation record ed. [address], [place], [address], 09/10/2023 07:53:44 09/06/19 24 MRI, cervi sixto spine , w/o contr ast No observ ation record ed. [address], [place], [address], 09/10/2023 07:54:19 09/06/19 24 MR, angio gram, head + neck, w/o contr ast No observ ation record ed. [address], [place], [address], 09/10/2023 07:55:45 09/06/19 24 XR, thora cic spine , 3 view No observ ation record ed. [address], [place], [address], 09/10/2023 07:57:27 09/06/[address], thora cic spine , w/wo contr ast No observ ation record ed. [address], [place], [address], 09/10/2023 07:58:35 09/09/19 24 08/30/2023 MRI, thora cic spine , w/wo contr ast No observ ation record ed. [email or web address] Not Available 2023 11:25:13 Result Notes None recorded. Medical Equipment None Reported. Vitals None Recorded Social History None recorded. Functional Status None recorded. Mental Status None recorded. Family History Nothing Reported. Medical History No medical history recorded. Gynecological HistoryNo gynecological history recorded. Obstetrics History GPAL:G 0 P 0 0 0 0 Past Encounters Encounter ID Performer Location Encounter Start Date Encounter Closed Date Diagnosis/Indication Diagnosis SNOMED-CT Code Diagnosis ICD10 Code Diagnosis Note [id number] MARTHA ERVIN, JAIDA [facility] [address] [place] [address] 09/06/2023 13:57:28 09/07/2023 05:05:30 Pain in cervical spine 674353503 M54.2 Pain in th oracic spine 942681999 M54.6 Paresthesia 96325738 R20 .2 Health Concerns Section Related Observation LastModified by Organization Detai ls LastModified Time None Recorded Concern Status LastModified by Organization Details LastModified Time None Recorded Advance Directives Directive None Recorded Payers Insurance Date Sequence Insurance Name Policy Number Policy Talbot Covered Member ID Talbot Member ID Guarantor Name 09/06/2023 1 [place] [id number] 7 Rossana Arzola [id number] Rossana Arzola Notes Date Note Type Note Provider Name and Address Organization Details Recorded Time 09/06/2023 text/html Ms. Arzola is a 38-year-old female who presents to the office for evaluation of her neck and mid back pain with radiation into her left arm as well as diffuse symptoms that started in November 2022 with no known cause. MARTHA ERVIN, JAIDA [address] [place], [address], [facility] 09/06/2023 16:28:23 OBGyn Episode No OBEpisode recorded.
== END 2024-10-05 23:59 | disposition home or self-care (01) ==
LOC: RT 10:15
PROVIDERS: PCP Nurse Practitioner Family; Visit Provider Nurse Practitioner Family
DX: I34.0 Nonrheumatic mitral (valve) insufficiency (principal); M79.672 Pain in left foot; M25.471 Effusion, right ankle; M25.472 Effusion, left ankle; M25.474 Effusion, right foot; M25.475 Effusion, left foot; Z87.891 Personal history of nicotine dependence
CPT/HCPCS: 93306

== ENCOUNTER 2024-11-11 09:38 | Outpatient (CLI) | payer BC, SELFPAY ==
--- OUTSIDE RECORDS SUMMARY | 2024-11-11 09:54 | XMS_ITS ---
Author Organization Unknown Medications Medication Instructions Effective Dates (start - stop) Status atorvastatin 40 MG Oral Tablet 2 018-07-83Z70:00:00.000+00:0 0 - Completed atorvastatin 40 MG Oral Tablet 2 141-12-32N23:00:00.000+00:0 0 - Completed {6 (azithromycin 250 MG Oral Tablet) } Pack 0808-69-08S87:00:00.000+00:0 0 - Completed amoxicillin 500 MG Oral Capsule 7502-10-03D43:00:00.000+00:0 0 - Completed omeprazole 20 MG Delayed Rel ease Oral Capsule 0100-04-56D25:00:00.000+00:0 0 - Completed amoxicillin 875 MG Oral Tablet 2 181-36-36S31:00:00.000+00:0 0 - Completed prednisone 20 MG Oral Tablet 07-07-15:00:00.000+00:0 0 - Completed fluticasone propionate 0.05 MG/ACTUAT Metered Dose Nasal [place] 2832-74-81S73:00:00 .000+00:0 0 - Completed atorvastatin 40 MG Oral Tablet 2 616-90-93L18:00:00.000+00:0 0 - Completed metformin hydrochloride 500 MG Oral Tablet 1984-42-06N53:00:00.000+00:0 0 - Completed cyclobenzaprine hydrochlorid e 10 MG Oral Tablet 1158-50-77H49:00:00.000+00:0 0 - Completed prednisone 20 MG Oral Tablet 06-13-22:00:00.000+00:0 0 - Completed omeprazole 40 MG Delayed Rel ease Oral Capsule 4781-47-43R82:00:00.000+00:0 0 - Completed atorvastatin 40 MG Oral Tablet 2 478-08-78F54:00:00.000+00:0 0 - Completed benzonatate 100 MG Oral Capsule 5567-61-95N00:00:00.000+00:0 0 - Completed bisoprolol fumarate 5 MG Ora l Tablet 7441-13-04F36:00:00.000+00:0 0 - Completed polyethylene glycol 3350 240 000 MG / potassium chloride 2980 MG / sodium bicarbonate 6720 MG / sodium chloride 5840 MG / sodium sulfate 69029 MG Powder for Oral Solution [GaviLyte-C] 6300-82-23Y87:00:00.000+00:0 0 - Completed Patient Care team information Name Category Status Period Participants - - Proposed period not known -
--- OUTSIDE RECORDS SUMMARY | 2024-11-11 09:54 | XMS_ITS | Data Portability ---
Author Organization [place] [place] Address [address] [place] [id number] Care Team Providers Care Textile Conservator Name Role Phone TENISHA VALERIO Primary Care Provider Assessment Encounter Date Assessment Date Assessment LastModified by Organization Details LastModified Time 06/11/2022 06/11/2022 37 [id number] le with right sided abdominal pain, worse [...] foods and alcohol, which can exacerbate constipation [email or web address] Not available 06/11/2022 16:59:06 Plan of Treatment Reminders Order Date Submit Date Provider Last Modified By Organization Details Last Modified Time Details Appointments None recorded. Lab None recorded. Referral None recorded. Procedures None recorded. Surgeries None recorded. Imaging CT, angiogram, abdomen, w/ contrast 2022 023 [facility] [address], [place], [address], 3 12:51:59 Medication Orders omeprazole 40 mg capsule,del ayed release 2022 023 [facility], [address] [facility], [place], [address], 3 16:05:51 Patient TargetsNo targets recorded. Patient InstructionsNo instructions recorded. Reason for Referral None Reported. Results Created Date Observation Date Name Description Value Unit Range Abnormal Flag Note LastModifiedBy Organization Detail LastModifiedTime 07/18/1907/17/2022 CT, angio gram, abdom en, w/ contr ast No observ ation record ed. [email or web address] [facility] [address], [place], [address], 07/30/2022 16:59:47 Result Notes None recorded. Problems Name Problem SNOMED Code Status Onset Date Resolution Date Notes Provider Name and Address Organization Details Recorded Time Arterioscl erotic vascular disease 91303588 Active [address], [place], [address] , [facility] - [facility] & [place] 3 15:56:32 Atheroscle rosis of coronary artery without angina pectoris 5673014688714 03 Active [address], [place], [address] , [facility] - [facility] & [place] 3 15:58:33 Constipati on 18314149 Active [address], [place], [address] , [place] - [facility] & [place] 3 15:58:51 Familial hyperchole sterolemia 550306213 Active [address], [place], [address] , [place] - [facility] & [place] 3 16:57:10 Chronic idiopathic constipati on 66729731 Active 2022 Miguel Sibley PA-C [address], [place], [address] , [facility] - NT [facility] & [place] 3 16:50:56 Problem Notes None recorded. Medical [...] Date Recorded Body weight Heart rate Systolic And Diastolic Provider Name and Address Organization Details Last Updated DateTime 06/11/2022 51759.37 g 72 /min 124/71 mm[Hg] [facility] [place] [facility] [place] 06/11/2022 15:45:24 Social History None recorded. Functional Status None recorded. Mental Status None recorded. Family History Nothing Reported. Medical History No medical history recorded. Gynecological HistoryNo gynecological history recorded. Obstetrics History GPAL:G 0 P 0 0 0 0 Past Encounters Encounter ID Performer Location Encounter Start Date Encounter Closed Date Diagnosis/Indication Diagnosis SNOMED-CT Code Diagnosis ICD10 Code Diagnosis Note [id number] Miguel Sibley PA-C [facility] [address] [address] 06/11/2022 15:06:57 06/11/2022 15:52:54 Right sided abdominal pain 472696303 R10.9 Atheroscle rosis of coronary artery without angina pectoris 9505879800 20888 I25.10 Constipation 49208209 K5 9.00 Familial hypercholesterolemia 123565045 E78.01 Health Concerns Section Related Observation LastModified by Organization Detai ls LastModified Time None Recorded Concern Status LastModified by Organization Details LastModified Time None Recorded Advance Directives Directive None Recorded Payers Insurance Date Sequence Insurance Name Policy Number Policy Talbot Covered Member ID Talbot Member ID Guarantor Name 11/26/2022 1 [place] [id number] Rossana Arzola [id number] Rossana Arzola Notes Date Note Type Note Provider Name and Address Organization Details Recorded Time 3 text/html Ms. Arzola is a 37 [id number]-knppxc who was referred by Dr. Valerio. She [...] vomiting, hematemesis or hematochezia. Miguel Sibley PA-C [address], [place], [address], [facility] [place] 06/11/2022 16:59:34 OBGyn Episode No OBEpisode recorded.
--- OUTSIDE RECORDS SUMMARY | 2024-11-11 09:54 | XMS_ITS | Clinical Summary ---
Author Organization Healthcare Address [address] [place] [address] Care Team Providers Care Account Financial Manager Name Role Phone Angelito Medeiros MD Primary Care Provider [phone] Allergies No known active allergies Medications propranolol (Inderal) 10 MG tablet Take 1 tablet (10 mg) by mouth 2 (two) times a day. Active Coenzyme Q10 75 MG capsule 75 mg. 08/23/2023 Active famotidine (Pepcid) 20 MG tablet 1 tablet (20 mg). 02/07/2024 Active rosuvastatin (Crestor) 5 MG tablet 1 tablet (5 mg). 05/07/2024 Active Active Problems Problem Noted Date Diagnosed Date Elevated parathyroid hormone 06/10/2024 Numbness and tingling 06/10/2024 Social History Tobacco Use Types Packs/Day Years Used Date Smoking Tobacco: Former Cigarettes Smokeless Tobacco: Never Tobacco Cessation:Counseling Given: Not Answered Alcohol Use Standard Drinks/Week Comments Not Currently 0 (1 standard drink = 0.6 oz pur e alcohol) PHQ-2 Answer Date Recorded Patient Health Questionnaire-2 Score 0 06/05/2024 Comments No Sex and Gender Information Value Date Recorded Sex Assigned at Not on file Legal Sex Female 7:37 PM EDT Gender Identity Not on file Sexual Orientation Not on file Last Filed Vital Signs Vital Sign Reading Time Taken Comments Blood Pressure 122/81 06/05/2024 9:20 AM EST Pulse 71 06/05/2024 9:20 AM EST Temperature - - Respiratory Rate 15 08/29/2023 2:35 PM EDT Oxygen Saturation 96% 08/29/2023 1:30 PM EDT Inhaled Oxygen Concentration - - Weight 85.4 kg (188 lb 4.4 oz) 06/05/2024 9:20 A M EST Height 167.6 cm (5' 6 ) 06/05/2024 9:20 AM EST Body Mass Index 30.39 06/05/2024 9:20 AM EST Plan of Treatment Health Maintenance Due Date Last Done Comments [facility]-HIV Screening 1983 [facility]-Hepatitis C Screening 1983 [facility]-/Child/Adol SDOH Screenings 1983 [facility]-Varicella Vaccines (1 of 2 - 13+ 2-dose series) 1996 HPV Vaccines (1 - 3-dose series) 1998 [facility]- SDOH Screenings 2001 [facility]-Adult SDOH Screenings 2001 [facility]-Hepatitis B Vaccines (1 of 3 - 19+ 3-dose series) 2002 [facility]-Pap Smear 2004 [facility]-Cervical Cancer Screening 2013 [facility]-HPV/Cotest 2013 BAI-JIEOI-05 Vaccine ( season) 2024 06/15/2020, 05/18/2020 [facility]-Influenza Vaccine (#1) 2025 [facility]-Depression Screening 06/05/2025 06/05/2024 [facility]-Zoster Vaccines (1 of 2) 2033 [facility]-DTaP,Tdap,and Td Vaccine s (2 - Td or Tdap) 12/17/2033 12/18/2023 [facility]-Hepatitis A Vaccines Aged Out 04/25/2018 No longer eligible based on patient's age to complete this topic [facility]-Obesity Intervention Completed 06/05/2024 [facility]-HIB Vaccines Aged Out No longer e ligible based on patient's age to complete this topic [facility]-IPV Vaccines Aged Out No longer e ligible based on patient's age to complete this topic [facility]-Pneumococcal Vaccine: Pediatrics (0 to 5 Years) and At-Risk Patients (6 to 49 Years) Aged Out No longer eligible b ased on patient's age to complete this topic [facility]-Rotavirus Vaccines Aged Out No lo nger eligible based on patient's age to complete this topic Insurance KELLY Care Teams Account Financial Manager Relationship Specialty Start Date End Date Angelito Medeiros MD [address] [place] [address] PCP - General Internal Medicine 08/29/23
--- OUTSIDE RECORDS SUMMARY | 2024-11-11 09:54 | XMS_ITS | Data Portability ---
Author Organization [facility] Address [address] [facility] [address] [place] [address] Care Team Providers Care Heliarc Welder Name Role Phone GLORIA LAL Referring Provider [phone] Assessment Encounter Date Assessment Date Assessment LastModified [...] 11/07/2022 and thoracic MRI [facility] 08[facility]. Ureña and I have [...] We also discussed that Dr. Ureña and Myles reviewed her thoracic MRI and while there [...] is satisfied with this plan of care. [email or web address] Not available 09/06/2023 16:27:08 Plan of Treatment [...] By Organization Details Last Modified Time 09/06/2023 [id number] CATEGORY DESCRIPTION MINUTES Prepare to see the patient (e.g. review of tests) 10 Obtain/review separately obtained history 5 Perform medically appropriate exam/evaluation 5 Order medications, tests, or procedures Art Glass Designer/educate the patient/family/car egiver 15 Refer/communicate w/other healthcare professionals 5 Document clinical information into health record 5 Non-billable independent interp of results Non-billable care coordination TOTAL TIME 45 87779 (15-29) 97174 (30-44) 84067 (45-59) 66346 (60-74) 95778 44742 (10-19) 33678 (20-29) 51183 (30-39) 50360 (40-54) [email or web address] Not available 09/06/2023 16:25:27 Reason for Referral None Reported. Results Created Date Observation Date Name Description Value Unit Range Abnormal Flag Note LastModifiedBy Organization Detail LastModifiedTime 08/26/1908/21/2023 CT, thora cic spine , w/o contr ast No observ ation record ed. [email or web address] Not Available 2023 08:07:58 08/26/19 24 08/21/2023 CT, angio gram, neck, w/ contr ast No observ ation record ed. [email or web address] Not Available 2023 08:09:03 08/26/19 24 08/21/2023 CT, angio gram, head, w/ contr ast No observ ation record ed. [email or web address] Not Available 2023 08:10:05 08/26/19 24 08/21/2023 CT, head + brain , w/o contr ast No observ ation record ed. [email or web address] Not Available 2023 08:10:47 04/22/20 24 08/21/2023 CT, angio gram, chest , w/ contr ast No observ ation record ed. [email or web address] Not Available 2023 08:11:33 08/26/19 24 08/19/2023 XR, thora cic spine , 3 view No observ ation record ed. [email or web address] Not Available 2023 08:12:05 09/04/19 24 08/30/2023 CT, thora cic spine , w/o contr ast No observ ation record ed. [address], [place], [address], 09/05/2023 08:36:30 09/06/19 24 08/19/2023 MR, angio gram, head + neck, w/o contr ast No observ ation record ed. [address], [place], [address], 09/10/2023 07:53:44 09/06/19 24 MRI, cervi sixto spine , w/o contr ast No observ ation record ed. [address], [place], [address], 09/10/2023 07:54:19 09/06/19 24 MR, angio gram, head + neck, w/o contr ast No observ ation record ed. [address], [place], [address], 09/10/2023 07:55:45 09/06/19 24 XR, thora cic spine , 3 view No observ ation record ed. [address], [place], [address], 09/10/2023 07:57:27 09/06/[address], thora cic spine , w/wo contr ast No observ ation record ed. [address], [place], [address], 09/10/2023 07:58:35 09/09/19 24 08/30/2023 MRI, thora [...] SNOMED-CT Code Diagnosis ICD10 Code Diagnosis Note [id number] MARTHA ERVIN APRN NEUROSURG [facility] [address] [place] [address] 09/06/2023 13:57:28 09/07/2023 05:05:30 Pain in cervical spine 644190943 M54.2 Pain in th oracic spine 397432756 M54.6 Paresthesia 42038976 R20 .2 Health Concerns Section Related Observation LastModified by Organization Detai ls LastModified Time None Recorded Concern Status LastModified by Organization Details LastModified Time None Recorded Advance Directives Directive None Recorded Payers Insurance Date Sequence Insurance Name Policy Number Policy Talbot Covered Member ID Talbot Member ID Guarantor Name 09/06/2023 1 [place] [id number] Rossana Arzola [id number] Rossana Arzola Notes Date Note Type Note Provider Name and Address Organization Details Recorded Time 09/06/2023 text/html Ms. Arzola is a 38-year-old female who presents to the office for evaluation of her neck and mid back pain with radiation into her left arm as well as diffuse symptoms that started in November 2022 with no known cause. MARTHA ERVIN, JAIDA [address] [place], [address], [facility] 09/06/2023 16:28:23 OBGyn Episode No OBEpisode recorded.
[2024-11-11 10:00] VITALS: PULSE 79; PULSE 81
[2024-11-11] MEDS: ALBUTEROL 0.083% 2.5 MG/3 ML NEB IH (10:00)
== END 2024-11-11 23:59 | disposition home or self-care (01) ==
LOC: RT 09:38
PROVIDERS: PCP Internal Medicine; Visit Provider Nurse Practitioner Family
DX: R06.02 Shortness of breath (principal)
CPT/HCPCS: 94010; 94640

== ENCOUNTER 2024-12-31 14:57 | Outpatient (RCR) | payer BC, SELFPAY | END 2024-12-31 23:59 | disposition home or self-care (01) | LOC: PT 14:57 | PROVIDERS: PCP Internal Medicine; Visit Provider Student in an Organized Health Care Education/Training Program | DX: S93.409A Sprain of unspecified ligament of unspecified ankle, initial encounter (principal); M84.374A Stress fracture, right foot, initial encounter for fracture | CPT/HCPCS: 97162 ==

== ENCOUNTER 2025-01-27 07:00 | Outpatient (CLI) | payer BC, SELFPAY ==
--- NOTE | 2025-01-27 07:00 | MR_ITS ---
FINAL REPORT TECHNIQUE: Multi planar MR imaging was performed through the foot. CLINICAL HISTORY: Suspected tendon tear. LATERAL SIDED FOOT PAIN FINDINGS: There is bone marrow edema within the anterior, lateral calcaneus. There is a fracture of the anterior process of the calcaneus well-seen on series 8, image 11. Edema is seen within the lateral aspect of the cuboid. No cuboid fracture is identified. Joint spaces are preserved. The Lisfranc joint is intact. The Lisfranc ligament is intact. There is a partial insertional tear of the Achilles tendon involving the anterior fibers. The medial and lateral tendons of the ankle are intact. There is mild soft tissue edema along the lateral midfoot. The plantar fascia is normal. IMPRESSION: Fracture involving the anterior process of the calcaneus. Edema of the lateral cuboid, may represent contusion or stress injury. Partial insertional tear of the Achilles tendon. Reviewed, Interpreted and Dictated by Olga Lazcano MD Transcribed by Lucrecia Watts Authenticated and [facility]
--- OUTSIDE RECORDS SUMMARY | 2025-01-27 07:03 | XMS_ITS | Patient Health Record ---
Author Organization [facility] Address [address] [place] [id number] Care Team Providers Care Jack Prizer Name Role Phone Ky Kelly Primary Care Provider Allergies No Known Allergies Medications Medication SIG (Take, Route, Frequency, Duration) Notes Start Date End Date Status Medrol 4 MG as directed orally d aily; Duration: 6 days 03/22/2021 Active Cyclobenzaprine HCl 5 MG 1 tab(s) orally 3 times a day, prn 03/22/2021 Active Cipro 250 MG 1 tab(s) orally ever y 12 hours; Duration: 7 days 03/27/2021 Active Mirena (52 MG) 20 MCG/DAY 1 ea by intrau teral administration once Active Immunizations Vaccine Route Administration Date Status Comme nts xFlu shot-36 months and older IM Intramuscular 03/22/2011 Administered Tetanus Tdap-Adacel (over 7yrs) IM Intramuscular 10/22/2019 Administered ppd ID Intradermal 12/18/2010 Administered COVID 19 Moderna Unknown 06/15/2020 Administered Problems Problem Type SNOMED Code ICD Code Onset Dates Problem Status W/U Status Risk Notes Problem History of multiple allergies (situation) (830366971) Allergies (995.3) Active confirmed Problem Raynaud's disease (948868772) Raynaud''s phenomenon without gangrene (I73.00) Active confirmed Plan Of Treatment No Information Insurance Providers Payer Name Payer Address Payer Phone Subscriber Number Group Number Insured Name Patient Relationship to Insured Coverage Start Date Coverage End Date [employer] [address] [place] [address] [id number] [place] MER[place] Self - patient is the insured Medical (General) History Surgical History Surgery Date(Month/Year) gallbladder removed 12-10 Hospitalization History Reason Date(Month/Year) [facility] 03/20
== END 2025-01-27 23:59 | disposition home or self-care (01) ==
LOC: RAD 07:01
PROVIDERS: PCP Internal Medicine; Visit Provider Internal Medicine
DX: S92.021A Displaced fracture of anterior process of right calcaneus, initial encounter for closed fracture (principal); S86.011A Strain of right Achilles tendon, initial encounter; R60.0 Localized edema
CPT/HCPCS: 73718

== ENCOUNTER 2025-01-27 16:00 | Outpatient (RCR) | payer BC, SELFPAY | END 2025-01-27 23:59 | disposition home or self-care (01) | LOC: PT 16:00 | PROVIDERS: Visit Provider Student in an Organized Health Care Education/Training Program | DX: S93.409A Sprain of unspecified ligament of unspecified ankle, initial encounter (principal) | CPT/HCPCS: 97110 ==

== ENCOUNTER 2025-05-02 11:50 | Emergency (ER) | payer BC, SELFPAY ==
--- OUTSIDE RECORDS SUMMARY | 2025-04-07 09:30 | XMS_ITS | Encounter Summary ---
Author Organization [facility] Address [address] [place] [address] Care Team Providers Care Teradata Developer Name Role Phone Reno Mehta DO Primary Care Provider [phone] Reason for Referral * Imaging (Routine) - Closed Specialty Diagnoses / Procedures Referred By Olegario mojica Referred To Contact Radiology Diagnoses Right foot pain Stress fracture of metatarsal bone of right foot with routine healing, subsequent encounter Closed nondisplaced fracture of anterior process of right calcaneus with routine healing, subsequent encounter Sprain of lateral ligament of ankle joint Procedures MR Ankle Right wo IV Contrast MR Foot Right wo IV Contrast Alessandra See DO [address] [facility] [address] [place] [address] Phone: tel: fax: Referral ID Status Reason Start Date Expiration Date Visits Re quested Visits Authorized [id number] Closed 04/07/2025 10/07/2026 1 1 * Consultation (Routine) - Authorized Specialty Diagnoses / Procedures Referred By Olegario mojica Referred To Contact Physical Therapy Diagnoses Right foot pain Stress fracture of metatarsal bone of right foot with routine healing, subsequent encounter Closed nondisplaced fracture of anterior process of right calcaneus with routine healing, subsequent encounter Sprain of lateral ligament of ankle joint Alessandra See DO [address] [facility] [address] [place] [address] Phone: tel: fax: Referral ID Status Reason Start Date Expiration Date Visits Requested Visits Authorized [id number] Authorized Consult and Treat 04/07/2025 10/07/2026 1 1 Reason for Visit * Reason Comments Follow-up Encounter Details Date Type Department Care Team (Late st Contact Info) Description 04/07/2025 9:30 AM EST Office Visit [facility] [address] [facility] [place] [address] Alessandra See DO [address] [facility] [address] [place] [address] Right foot pain (Primary Dx); Stress fracture of metatarsal bone of right foot with routine healing, subsequent encounter; Closed nondisplaced fracture of anterior process of right calcaneus with routine healing, subsequent encounter; Sprain of lateral ligament of ankle joint Social History Tobacco Use Types Packs/Day Years [...] on file Sexual Orientation Not on file documented as of this encounter Last Filed Vital Signs Vital Sign Reading Time Taken Comments Blood Pressure 112/76 04/07/2025 9:23 AM EST Pulse - - Temperature - - Respiratory Rate - - Oxygen Saturation - - Inhaled Oxygen Concentration - - Weight 88.5 kg (195 lb) 04/07/2025 9:23 AM EST Height 167.6 cm (5' 6 ) 04/07/2025 9:23 AM EST Body Mass Index 31.47 04/07/2025 9:23 AM EST documented in this encounter Functional Status * BP Answer Date of Assessment Author 112/76 04/07/2025 9:23 AM EST Sung Hernandez * Height Answer Date of Assessment Author 66 04/07/2025 9:23 AM Sung Nicole * Weight Answer Date of Assessment Author 3120 04/07/2025 9:23 AM Sung Nicole * BMI (Calculated) Answer Date of Assessment Author 31.5 04/07/2025 9:23 AM Sung Nicole * Percent Excess Weight Loss Answer Date of Assessment Author 0 04/07/2025 9:23 AM Sung Nicole * Total Weight Change Percent Answer Date of Assessment Author 2222 04/07/2025 9:23 AM Sung Nicole * Weight Change Since Preop Answer Date of Assessment Author 88.43 04/07/2025 9:23 AM Sung Nicole * Initial Excess Weight Answer Date of Assessment Author -58.97 04/07/2025 9:23 AM Sung Nicole * IBW in lbs (Bariatric) Answer Date of Assessment Author 130 04/07/2025 9:23 AM Sung Nicole * Weight Change Since Last Visit Answer Date of Assessment Author 88.43 04/07/2025 9:23 AM Sung Nicole * IBW in kg (Bariatric) Answer Date of Assessment Author 58.97 04/07/2025 9:23 AM Sung Nicole * Percent of IBW Answer Date of Assessment Author 5,290.83 04/07/2025 9:23 AM Sung Nicole * EBW (kg) Answer Date of Assessment Author 3,118.33 04/07/2025 9:23 AM Sung Nicole * EBW (lbs) Answer Date of Assessment Author 3,111.88 04/07/2025 9:23 AM Sung Nicole * Weight Change 24 hrs Answer Date of Assessment Author 0 04/07/2025 9:23 AM Sung Nicole * BSA (Calculated - sq m) Answer Date of Assessment Author 2.03 04/07/2025 9:23 AM Sung Nicole * BMI (Calculated) Answer Date of Assessment Author 31.49 04/07/2025 9:23 AM Sung Nicole * IBW/kg (Calculated) Male Answer Date of Assessment Author 63.8 04/07/2025 9:23 AM Sung Nicole * IBW/kg (Calculated) Female Answer Date of Assessment Author 59.3 04/07/2025 9:23 AM Sung Nicole * IBW/kg (Calculated) Answer Date of Assessment Author 59.3 04/07/2025 9:23 AM Sung Nicole * Weight in (lb) to have BMI = 25 Answer Date of Assessment Author 154.6 04/07/2025 9:23 AM Sung Nicole * BMI (Calculated) Answer Date of Assessment Author 31.5 04/07/2025 9:23 AM Sung Nicole * Percent Excess Weight Loss Answer Date of Assessment Author 0 04/07/2025 9:23 AM Sung Nicole * Weight Change Since Preop Answer Date of Assessment Author 88.45 04/07/2025 9:23 AM Sung Nicole * Initial Excess Weight Answer Date of Assessment Author -58.97 04/07/2025 9:23 AM Sung Nicole * IBW in kg (Bariatric) Answer Date of Assessment Author 58.97 04/07/2025 9:23 AM Sung Nicole * IBW in lb (Bariatric) Answer Date of Assessment Author 130 04/07/2025 9:23 AM Sung Nicole * Weight Change Since Last Visit Answer Date of Assessment Author 88.45 04/07/2025 9:23 AM Sung Nicole * Percent of IBW Answer Date of Assessment Author 150 04/07/2025 9:23 AM Sung Nicole * EBW (kg) Answer Date of Assessment Author 29.46 04/07/2025 9:23 AM Sung Nicole * EBW (lb) Answer Date of Assessment Author 65 04/07/2025 9:23 AM Sung Nicole * Difference in Weight Since Last Visit Answer Date of Assessment Author 0 04/07/2025 9:23 AM Sung Nicole * IBW/kg (Calculated) Answer Date of Assessment Author 59.3 04/07/2025 9:23 AM Sung Nicole * Adult Low Range Vt 6mL/kg Answer Date of Assessment Author 355.8 04/07/2025 9:23 AM Sung Nicole * Adult Moderate Range Vt 8mL/kg Answer Date of Assessment Author 474.4 04/07/2025 9:23 AM Sung Nicole * Adult High Range Vt 10mL/kg Answer Date of Assessment Author 593 04/07/2025 9:23 AM Sung Nicole * Pain Score Answer Date of Assessment Author 0 04/07/2025 9:24 AM Sung Nicole * Pain Screening/Additional Assessments Question Answer Date of Assessment Author Pain Screening/Assessments Pain Screening 04/07/2025 9 :24 AM Baudilio Nicole * Pain Screening Answer Date of Assessment Author 0-10 04/07/2025 9:24 AM Sung Nicole * BP Answer Date of Assessment Author 112/76 04/07/2025 9:23 AM Sung Nicole * Height Answer Date of Assessment Author 66 04/07/2025 9:23 AM Sung Nicole * Weight Answer Date of Assessment Author 3120 04/07/2025 9:23 AM Sung Nicole * BSA (Calculated - sq m) Answer Date of Assessment Author 2.03 04/07/2025 9:23 AM Sung Nicole * BMI (Calculated) Answer Date of Assessment Author 31.49 04/07/2025 9:23 AM Sung Nicole * Weight in (lb) to have BMI = 25 Answer Date of Assessment Author 154.6 04/07/2025 9:23 AM Sung Nicole * Pain Score Answer Date of Assessment Author 0 04/07/2025 9:24 AM Sung Nicole * Learning Needs Screening Question Answer Date of Assessment Author Are there things (barriers) that make it harder for this patient to learn? No Barriers 04/07/2025 9:23 AM Baudilio Nicole What is the best language to use for teaching this patient about his/her health? Burmese 04/07/2025 9:23 AM Baudilio Nicole What format does this patient think is most helpful for learning? Listening;Reading;Pictur es/Video;Demonstration 04/07/2025 9:23 AM Baudilio Nicole Primary Learner Patient 04/07/2025 9:23 AM Baudilio Garcia * Readiness to Learn Question Answer Date of Assessment Author Readiness Acceptance 04/07/2025 9:23 AM Baudilio Nicole documented as of this encounter Mental Status * BP Answer Entry Date Author 112/76 04/07/2025 9:23 AM Sung Nicole * Height Answer Entry Date Author 66 04/07/2025 9:23 AM Sung Nicole * Weight Answer Entry Date Author 3120 04/07/2025 9:23 AM Sung Nicole * BMI (Calculated) Answer Entry Date Author 31.5 04/07/2025 9:23 AM Sung Nicole * Percent Excess Weight Loss Answer Entry Date Author 0 04/07/2025 9:23 AM Sung Nicole * Total Weight Change Percent Answer Entry Date Author 22204/07/2025 9:23 AM Sung Nicole * Weight Change Since Preop Answer Entry Date Author 88.43 04/07/2025 9:23 AM Sung Nicole * Initial Excess Weight Answer Entry Date Author -58.97 04/07/2025 9:23 AM Sung Nicole * IBW in lbs (Bariatric) Answer Entry Date Author 130 04/07/2025 9:23 AM Sung Nicole * Weight Change Since Last Visit Answer Entry Date Author 88.43 04/07/2025 9:23 AM Sung Nicole * IBW in kg (Bariatric) Answer Entry Date Author 58.97 04/07/2025 9:23 AM Sung Nicole * Percent of IBW Answer Entry Date Author 5,290.83 04/07/2025 9:23 AM Sung Nicole * EBW (kg) Answer Entry Date Author 3,118.33 04/07/2025 9:23 AM Sung Nicole * EBW (lbs) Answer Entry Date Author 3,111.88 04/07/2025 9:23 AM Sung Nicole * Weight Change 24 hrs Answer Entry Date Author 0 04/07/2025 9:23 AM Sung Nicole * BSA (Calculated - sq m) Answer Entry Date Author 2.03 04/07/2025 9:23 AM Sung Nicole * BMI (Calculated) Answer Entry Date Author 31.49 04/07/2025 9:23 AM Sung Nicole * IBW/kg (Calculated) Male Answer Entry Date Author 63.8 04/07/2025 9:23 AM Sung Nicole * IBW/kg (Calculated) Female Answer Entry Date Author 59.3 04/07/2025 9:23 AM Sung Nicole * IBW/kg (Calculated) Answer Entry Date Author 59.3 04/07/2025 9:23 AM Ky Nicole * Restart Pain Assessment Timer Answer Entry Date Author Yes 04/07/2025 9:24 AM Sung Nicole * Weight in (lb) to have BMI = 25 Answer Entry Date Author 154.6 04/07/2025 9:23 AM Sung Nicole * BMI (Calculated) Answer Entry Date Author 31.5 04/07/2025 9:23 AM Sung Nicole * Percent Excess Weight Loss Answer Entry Date Author 0 04/07/2025 9:23 AM Sung Nicole * Weight Change Since Preop Answer Entry Date Author 88.45 04/07/2025 9:23 AM Sung Nicole * Initial Excess Weight Answer Entry Date Author -58.97 04/07/2025 9:23 AM Sung Nicole * IBW in kg (Bariatric) Answer Entry Date Author 58.97 04/07/2025 9:23 AM Sung Nicole * IBW in lb (Bariatric) Answer Entry Date Author 130 04/07/2025 9:23 AM Sung Nicole * Weight Change Since Last Visit Answer Entry Date Author 88.45 04/07/2025 9:23 AM Sung Nicole * Percent of IBW Answer Entry Date Author 150 04/07/2025 9:23 AM Sung Nicole * EBW (kg) Answer Entry Date Author 29.46 04/07/2025 9:23 AM Sung Nicole * EBW (lb) Answer Entry Date Author 65 04/07/2025 9:23 AM Sung Nicole * Difference in Weight Since Last Visit Answer Entry Date Author 0 04/07/2025 9:23 AM Sung Nicole * IBW/kg (Calculated) Answer Entry Date Author 59.3 04/07/2025 9:23 AM Sung Nicole * Adult Low Range Vt 6mL/kg Answer Entry Date Author 355.8 04/07/2025 9:23 AM Sung Nicole * Adult Moderate Range Vt 8mL/kg Answer Entry Date Author 474.4 04/07/2025 9:23 AM Sung Nicole * Adult High Range Vt 10mL/kg Answer Entry Date Author 593 04/07/2025 9:23 AM Sung Nicole * Pain Score Answer Entry Date Author 0 04/07/2025 9:24 AM Sung Nicole * Pain Screening Answer Entry Date Author 0-10 04/07/2025 9:24 AM Sung Nicole documented in this encounter Miscellaneous Notes * Progress Notes - Alessandra See DO - 04/07/2025 9:30 AM EST Images from the original note were not included. Sports [facility] Note Subjective: Subjective Rossana Arzola is a 40 y.o. female who presents for Follow-up of the Right Foot History of Present Illness The patient is a 40-year-old female who presents today for follow-up of right foot pain. She was previously seen on 02/08/2025, following an initial injury that occurred at the end of November. After her last appointment, she had a trip planned to [place]. She was instructed to follow up 3 weeks after the injury but missed her appointment. She sent a Placely message this week due to pain after prolonged walking. She reports that her recent trip was enjoyable, but she experienced persistent foot pain. She attempted to walk without the boot one evening, which resulted in significant discomfort. Upon her return, she adhered to a non-weightbearing regimen for a week before transitioning to a shoe with a carbonplate, but still had pain with the carbon plate. Her symptoms are generally manageable in the morning, allowing her to walk normally. However, by midday, particularly after activities such as shopping, she experiences significant pain and limping. At this point, she resorts to wearing the boot at work and removing it upon returning home. She also reports difficulty with pushing off while walking and discomfort when lying on her side during sleep. She expresses concern about the apparent atrophyin her leg. She also reports pain when descending a step into her living room, necessitating support. She has been wearing the boot consistently due to her job's physical demands, which involve extensive walking. She finds that her pain is less severe when she wears the boot, but prolonged standingor walking can still cause some discomfort. She has been managing her pain with ibuprofen since November but has recently reduced her intake due to concerns about long-term use. She has been persistentlyat 80% improvement without complete resolution of pain. Additionally, she mentions that her hip is causing her significant pain, which she attributes to analtered gait from prolonged use of the boot. She also notes that her toes become numb when using the plate, which she believes may be due to her Raynaud's disease. SOCIAL HISTORY Occupations: Works in a job that involves a lot of walking, typically from 8-5. 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 Medications Patient's Medications New Prescriptions No medications on file Previous Medications COENZYME Q10 75 MG CAPSULE 75 mg. FAMOTIDINE (PEPCID) 20 MG TABLET 1 tablet (20 mg). LEVONORGESTREL (MIRENA, 52 MG,) 20 MCG/DAY IUD 1 ea by intrauteral administration once MOUNJARO 2.5 MG/0.5ML SOLUTION AUTO-INJECTOR SOLUTION PEN-INJECTOR INJECT 1 SYRINGE SUBCUTANEOUSLY ONCE A WEEK FOR 4 WEEKS OMEPRAZOLE (PRILOSEC) [address] CAPSULE Take 1 capsule by mouth daily. PROPRANOLOL (INDERAL) 10 MG TABLET Take 1 tablet (10 mg) by mouth 2 (two) times a day. ROSUVASTATIN (CRESTOR) 5 MG TABLET 1 tablet (5 mg). TIRZEPATIDE-WEIGHT MANAGEMENT (ZEPBOUND SC) Inject under the skin. Modified Medications No medications on file Discontinued Medications No medications on file Surgical History Surgical History[1] Allergies Allergies[2] Objective: Visit Vitals BP 112/76 Ht 1.676 m (5' 6 ) Wt 88.5 kg (195 lb) BMI 31.47 kg/m?? OB Status IUD Smoking Status Former BSA 2.03 m?? GEN: Alert, cooperative, in no acute distress. MSK: Right Foot --Inspection: No erythema, ecchymosis, or swelling appreciated. No asymmetry or malrotation of the digits. --Palpation: No tenderness to palpation over the tarsals, metatarsals, or phalanges. No tenderness to palpation over the talus, or medial/lateral malleolus. TTP over the lateral anterior process of the calcaneous and peroneal tendons. --Range of Motion: Ankle range of motion 0-20 degrees dorsiflexion, 0-50 degrees plantarflexion, 0-30 degrees inversion, 0-20 degrees eversion. --Strength: 5/5 strength with dorsiflexion, plantarflexion, inversion, and eversion. Pain with resisted testing with inversion. --Neurovascular: Sensation intact to light touch. 2+ DP and PT pulses. Normal gait. Results Imaging - MRI of the right foot: 01/27/2025, Fracture involving the anterior process of the calcaneus, edema of the lateral cuboid that may represent contusion or stress injury, partial insertional tear of the Achilles tendon. Assessment and Plan: Diagnosis Plan 1. Right foot pain Physical Therapy (outgoing) MR Foot Right wo IV Contrast 2. Stress fracture of metatarsal bone of right foot with routine healing, subsequent encounter Physical Therapy (outgoing) MR Foot Right wo IV Contrast 3. Closed nondisplaced fracture of anterior process of right calcaneus with routine healing, subsequent encounter Physical Therapy (outgoing) MR Foot Right wo IV Contrast 4. Sprain of lateral ligament of ankle joint Physical Therapy (outgoing) MR Foot Right wo IV Contrast Orders Placed This Encounter MR Foot Right wo IV Contrast Physical Therapy (outgoing) Assessment & Plan 1. Right foot pain: Symptoms are consistent with a stress injury in the calcaneus. A MRI scan will be ordered to assesshealing progress and stress injury. Continue wearing the boot during work hours and apply ice to the affected area. Diclofenac gel is recommended for pain management. If the carbon plate exacerbates symptoms remove from shoe and return to boot. If the MRI indicates complete healing, physical therapy will be initiated. If the stress injury has not fully healed, a bone stimulator may be considered. Follow-up: The patient will follow up after the MRI. Patient verbalized understanding of the plan and were agreeable with no further questions. Records Reviewed: Plain Radiographs., Prior office visits., and MRI. Verbal consent was obtained to use ambient listening technology to assist in the documentation of the encounter: yes Electronically Signed by: Alessandra See DO - 04/07/2025 [1] Past Surgical History: Procedure Laterality Date SECTION, CLASSIC GALLBLADDER SURGERY VAGINAL AFTER SECTION [2] No Known Allergies documented in this encounter Plan of Treatment Upcoming Encounters Date Type Department Care Team (Late st Contact Info) Description 05/27/2025 8:[address] [facility] [address] [place] [address] Michael La DPM [address] [place] [address] Scheduled Referrals Name Type Priority Associated Diagnoses Orde r Schedule Physical Therapy (outgoing) Outpatient Referral Routine Right foot pain Stress fracture of metatarsal bone of right foot with routine healing, subsequent encounter Closed nondisplaced fracture of anterior process of right calcaneus with routine healing, subsequent encounter Sprain of lateral ligament of ankle joint 1 Occurrences starting 04/07/2025 until 10/09/2026 documented as of this encounter Results * MR Ankle Right wo IV Contrast (04/13/2025 8:44 AM EST) Anatomical Region Laterality Modality Ankle Right Magnetic Resonan ce Impressions 04/13/2025 11:06 AM EST Nondisplaced fracture of the anterior calcaneal process with associated marrow edema like signal. Associated sprain of the bifurcate ligament. Intrasubstance linear signal in the Achilles tendon which may represent intrasubstance tear with mild paratendinous edema. CRITICAL RESULT: No. COMMUNICATION: Per this written report. Drafted by Zain Rosado MD on 04/13/2025 10:49 AM Final report signed by Zain Rosado MD on 04/13/2025 11:06 AM Narrative 04/13/2025 11:06 AM EST CLINICAL INDICATION: Foot pain, persistent post-traumatic TECHNIQUE: Axial proton density, coronal proton density, axial T2 FS, sagittal T2 FS, coronal STIR, sagittal T1, coronal ZULEIMA. COMPARISON: Radiographs [id number] FINDINGS: Bone and Bone Marrow: Nondisplaced fracture of the anterior calcaneal process with moderate edema like signal. Subtle edema like signal involving the talus at the sinus tarsi. Remainder of marrow signal intensity is unremarkable. Cartilage: The cartilage is smoothly congruent throughout the joint space without focal deficits or osteochondral defect (OCD). Tendons: The extensor tendons are intact. Intrasubstance linear signal seen within the Achilles tendon with minimal paratendinous edema. Flexor tendons are intact with minimal posterior tibialis tenosynovial fluid. Intact peroneal tendons. Ligaments: The anterior inferior and posterior inferior tibiofibular ligaments are intact. Intact posterior talofibular, anterior talofibular, and calcaneofibular ligaments. The deltoid ligament is unremarkable as is the spring ligament. Heterogeneous appearance of the bifurcate ligament. Plantar Fascia: The plantar fascia is normal in signal with no evidence of fibromatosis or fasciitis. Spaces: The tarsal tunnel is normal with no evidence of space-occupying mass or constriction. The sinus tarsi is normal in signal with no evidence of inflammatory changes. The interosseous and cervical ligaments appear intact. Soft Tissues: There is no evidence of muscle strain. There is no evidence of periarticular ganglion formation. There are no inflammatory signs in the periarticular region to indicate impingement. Procedure Note Zain Rosado MD - 04/13/2025 CLINICAL INDICATION: Foot pain, persistent post-traumatic TECHNIQUE: Axial proton density, coronal proton density, axial T2 FS, sagittal T2 FS,coronal STIR, sagittal T1, coronal ZULEIMA. COMPARISON: Radiographs [id number] FINDINGS: Bone and Bone Marrow: Nondisplaced fracture of the anterior calcanealprocess with moderate edema like signal. Subtle edema like signalinvolving the talus at the sinus tarsi. Remainder of marrow signalintensity is unremarkable. Cartilage: The cartilage is smoothly congruent throughout the joint spacewithout focal deficits or osteochondral defect (OCD). Tendons: The extensor tendons are intact. Intrasubstance linear signalseen within the Achilles tendon with minimal paratendinous edema. Flexortendons are intact with minimal posterior tibialis tenosynovial fluid.Intact peroneal tendons. Ligaments: The anterior inferior and posterior inferior tibiofibularligaments are intact. Intact posterior talofibular, anterior talofibular,and calcaneofibular ligaments. The deltoid ligament is unremarkable as isthe spring ligament. Heterogeneous appearance of the bifurcate ligament. Plantar Fascia: The plantar fascia is normal in signal with no evidence offibromatosis or fasciitis. Spaces: The tarsal tunnel is normal with no evidence of space-occupyingmass or constriction. The sinus tarsi is normal in signal with no evidenceof inflammatory changes. The interosseous and cervical ligaments appearintact. Soft Tissues: There is no evidence of muscle strain. There is no evidenceof periarticular ganglion formation. There are no inflammatory signs inthe periarticular region to indicate impingement. IMPRESSION: Nondisplaced fracture of the anterior calcaneal process with associatedmarrow edema like signal. Associated sprain of the bifurcate ligament. Intrasubstance linear signal in the Achilles tendon which may representintrasubstance tear with mild paratendinous edema. CRITICAL RESULT: No. COMMUNICATION: Per this written report. Drafted by Zain Rosado MD on 04/13/2025 10:49 AM Final report signed by Zain Rosado MD on 04/13/2025 11:06 AM Alessandra See DO IMG MRI PROCEDURES Final Result documented in this encounter Visit Diagnoses Diagnosis Right foot pain- Primary Pain in soft tissues of limb Stress fracture of metatarsal bone of right foot with routine healing, subsequent encounter Closed nondisplaced fracture of anterior process of right calcaneus with routine healing, subsequent encounter Sprain of lateral ligament of ankle joint Right foot pain Pain in soft tissues of limb Stress fracture of metatarsal bone of right foot with routine healing, subsequent encounter Closed nondisplaced fracture of anterior process of right calcaneus with routine healing, subsequent encounter Sprain of lateral ligament of ankle joint documented in this encounter Additional Health Concerns Assessment Noted Time A fall risk assessment has been complete d for the patient 04/07/2025 9:25 AM EST A Body Mass Index follow-up plan has been documented for the patient 04/07/2025 9:47 AM EST documented as of this encounter Care Teams Teradata Developer Relationship Specialty Start Date End Date Reno Mehta DO [address] [place] [address] [place] [address] PCP - General 01/28/25 documented as of this encounter
--- OUTSIDE RECORDS SUMMARY | 2025-04-13 08:17 | XMS_ITS | Encounter Summary ---
Author Organization [facility] Address [address] [place] [address] Care Team Providers Care Construction Project Administrator Name Role Phone Reno Mehta DO Primary Care Provider [phone] Reason for Referral * Imaging (Routine) - [...] Right wo IV Contrast Alessandra See DO [address] [facility] [address] [place] [address] Phone: tel: fax: Referral ID Status Reason Start Date Expiration Date Visits Re quested Visits Authorized [id number] Closed 04/07/2025 10/07/2026 1 1 Reason for Visit * Imaging (Routine) - Closed Specialty Diagnoses [...] Right wo IV Contrast Alessandra See DO [address] [facility] [address] [place] [address] Phone: tel: fax: Referral ID Status Reason Start Date Expiration Date Visits Re quested Visits Authorized [id number] Closed 04/07/2025 10/07/2026 1 1 Encounter Details Date Type Department Care Team (Latest Contact Info) Description 04/13/2025 8:17 AM EST - 04/13/2025 11:59 PM [facility] [place] [address] Right foot pain; Stress fracture of metatarsal bone of right foot with routine healing, subsequent encounter; Closed nondisplaced fracture of anterior process of right calcaneus with routine healing, subsequent encounter; Sprain of lateral ligament of ankle joint Discharge Disposition: Home or Self Care Social History Tobacco Use Types Packs/Day Years Used Date Smoking Tobacco: Former Cigarettes Smokeless Tobacco: Never Alcohol Use Standard Drinks/Week Comments Not Currently 0 (1 standard drink = 0.6 oz pur e alcohol) PHQ-2 Answer Date Recorded Patient Health Questionnaire-2 Score 0 06/05/2024 Comments No Sex and Gender Information Value Date Recorded Sex Assigned at Not on file Legal Sex Female 7:37 PM EDT Gender Identity Not on file Sexual Orientation Not on file documented as of this encounter Medications at Time of Discharge Coenzyme Q10 75 MG capsule 75 mg. 08/23/2023 famotidine (Pepcid) 20 MG tablet 1 tablet (20 mg). 02/07/2024 levonorgestrel (Mirena, 52 MG,) 20 MCG/DAY IUD 1 ea by intrauteral administration once Mounjaro 2.5 MG/0.5ML solution auto-injector solution pen-injector INJECT 1 SYRINGE SUBCUTANEOUSLY ONCE A WEEK FOR 4 WEEKS 03/29/2025 omeprazole (PriLOSEC) [address] capsule Take 1 capsule by mouth daily. 12/25/2024 propranolol (Inderal) 10 MG tablet Take 1 tablet (10 mg) by mouth 2 (two) times a day. rosuvastatin (Crestor) 5 MG tablet 1 tablet (5 mg). 05/07/2024 Tirzepatide-Pb ght Management (ZEPBOUND SC) Inject under the skin. documented as of this encounter Plan of Treatment Upcoming Encounters Date Type Department Care Team (Late st Contact Info) Description 05/27/2025 8:20 AM EST Consult [facility] Orthopaedic Surgery & Sports Medicine [address], [address] [place] [address] Michael La, DPMarino [address] [place] [address] documented as of this encounter Procedures Procedure Name Priority Date/Time Associated Diagnosis Comments MR ANKLE RIGHT WO IV CONTRAST Routine 04/13/2025 8:44 AM EST Right foot pain Stress fracture of metatarsal bone of right foot with routine healing, subsequent encounter Closed nondisplaced fracture of anterior process of right calcaneus with routine healing, subsequent encounter Sprain of lateral ligament of ankle joint documented in this encounter Results * MR Ankle Right [...] STIR, sagittal T1, coronal ZULEIMA. COMPARISON: Radiographs [id number] FINDINGS: Bone and Bone Marrow: Nondisplaced fracture [...] STIR, sagittal T1, coronal ZULEIMA. COMPARISON: Radiographs [id number] FINDINGS: Bone and Bone Marrow: Nondisplaced fracture [...] this encounter Visit Diagnoses Diagnosis Right foot pain Pain in soft tissues [...] documented as of this encounter Care Teams Construction Project Administrator Relationship Specialty Start Date End Date Reno Mehta DO [address] [place] [address] [place] [address] PCP - General 01/28/25 documented as of this encounter
--- OUTSIDE RECORDS SUMMARY | 2025-04-14 14:50 | XMS_ITS | Encounter Summary ---
Author Organization [facility] Address [address] [place] [address] Care Team Providers Care 3R[employer] Grade Reading Teacher Name Role Phone Reno Mehta DO Primary Care Provider [phone] Reason for Visit * Reason Comments Follow-up Follow-up Encounter Details Date Type Department Care Team (Late st Contact Info) Description 04/14/2025 2:50 PM EST Office Visit [facility] Orthopaedic Surgery & Sports Medicine [address], [address] [place] [address] Alessandra See, DO [address] [facility] [place] [address] Right foot pain (Primary Dx); Stress fracture of metatarsal bone of right foot with routine healing, subsequent encounter; Closed nondisplaced fracture of anterior process of right calcaneus with routine healing, subsequent encounter Social History Tobacco Use Types Packs/Day Years [...] Sign Reading Time Taken Comments Blood Pressure 113/65 04/14/2025 2:46 PM EST Pulse - - Temperature - - Respiratory Rate - - Oxygen Saturation - - Inhaled Oxygen Concentration - - Weight 86.2 kg (190 lb) 04/14/2025 2:46 PM EST Height 167.6 cm (5' 6 ) 04/14/2025 2:46 PM EST Body Mass Index 30.67 04/14/2025 2:46 PM EST documented in this encounter Functional Status * BP Answer Date of Assessment Author 113/65 04/14/2025 2:46 PM EST [place], Karen * Height Answer Date of Assessment Author 66 04/14/2025 2:46 PM EST [place], Karen * Weight Answer Date of Assessment Author 3040 04/14/2025 2:46 PM EST [place], Karen * BMI (Calculated) Answer Date of Assessment Author 30.7 04/14/2025 2:46 PM EST [place], Karen * Percent Excess Weight Loss Answer Date of Assessment Author 0 04/14/2025 2:46 PM EST [place], Karen * Total Weight Change Percent Answer Date of Assessment Author 2222 04/14/2025 2:46 PM EST [place], Karen * Weight Change Since Preop Answer Date of Assessment Author 86.16 04/14/2025 2:46 PM EST [place], Karen * Initial Excess Weight Answer Date of Assessment Author -58.97 04/14/2025 2:46 PM EST [place], Karen * IBW in lbs (Bariatric) Answer Date of Assessment Author 130 04/14/2025 2:46 PM EST [place], Karen * Weight Change Since Last Visit Answer Date of Assessment Author 86.16 04/14/2025 2:46 PM EST [place], Karen * IBW in kg (Bariatric) Answer Date of Assessment Author 58.97 04/14/2025 2:46 PM EST [place], Karen * Percent of IBW Answer Date of Assessment Author 5,155.16 04/14/2025 2:46 PM EST [place], Karen * EBW (kg) Answer Date of Assessment Author 3,038.33 04/14/2025 2:46 PM EST [place], Karen * EBW (lbs) Answer Date of Assessment Author 3,031.88 04/14/2025 2:46 PM EST [place], Karen * Weight Change 24 hrs Answer Date of Assessment Author 0 04/14/2025 2:46 PM EST [place], Karen * BSA (Calculated - sq m) Answer Date of Assessment Author 2 04/14/2025 2:46 PM EST [place], Karen * BMI (Calculated) Answer Date of Assessment Author 30.68 04/14/2025 2:46 PM EST [place], Karen * IBW/kg (Calculated) Male Answer Date of Assessment Author 63.8 04/14/2025 2:46 PM EST [place], Karen * IBW/kg (Calculated) Female Answer Date of Assessment Author 59.3 04/14/2025 2:46 PM EST [place], Karen * IBW/kg (Calculated) Answer Date of Assessment Author 59.3 04/14/2025 2:46 PM EST [place], Karen * Weight in (lb) to have BMI = 25 Answer Date of Assessment Author 154.6 04/14/2025 2:46 PM EST [place], Karen * BMI (Calculated) Answer Date of Assessment Author 30.7 04/14/2025 2:46 PM EST [place], Karen * Percent Excess Weight Loss Answer Date of Assessment Author 0 04/14/2025 2:46 PM EST [place], Karen * Weight Change Since Preop Answer Date of Assessment Author 86.18 04/14/2025 2:46 PM EST [place], Karen * Initial Excess Weight Answer Date of Assessment Author -58.97 04/14/2025 2:46 PM EST [place], Karen * IBW in kg (Bariatric) Answer Date of Assessment Author 58.97 04/14/2025 2:46 PM EST [place], Karen * IBW in lb (Bariatric) Answer Date of Assessment Author 130 04/14/2025 2:46 PM EST [place], Karen * Weight Change Since Last Visit Answer Date of Assessment Author 0 04/14/2025 2:46 PM EST [place], Karen * Percent of IBW Answer Date of Assessment Author 146.15 04/14/2025 2:46 PM EST [place], Karen * EBW (kg) Answer Date of Assessment Author 27.19 04/14/2025 2:46 PM EST [place], Karen * EBW (lb) Answer Date of Assessment Author 60 04/14/2025 2:46 PM EST [place], Karen * Difference in Weight Since Last Visit Answer Date of Assessment Author 0 04/14/2025 2:46 PM EST [place], Karen * IBW/kg (Calculated) Answer Date of Assessment Author 59.3 04/14/2025 2:46 PM EST [place], Karen * Adult Low Range Vt 6mL/kg Answer Date of Assessment Author 355.8 04/14/2025 2:46 PM EST [place], Karen * Adult Moderate Range Vt 8mL/kg Answer Date of Assessment Author 474.4 04/14/2025 2:46 PM EST [place], Karen * Adult High Range Vt 10mL/kg Answer Date of Assessment Author 593 04/14/2025 2:46 PM EST [place], Karen * Pain Assessment Question Answer Date of Assessment Author Pain Assessment 0-10 04/14/2025 2:49 PM EST [place], Karen Pain Score 4 04/14/2025 2:49 PM EST Deeri ng, Karen * BP Answer Date of Assessment Author 113/65 04/14/2025 2:46 PM EST [place], Karen * Height Answer Date of Assessment Author 66 04/14/2025 2:46 PM EST [place], Karen * Weight Answer Date of Assessment Author 3040 04/14/2025 2:46 PM EST [place], Karen * BSA (Calculated - sq m) Answer Date of Assessment Author 2 04/14/2025 2:46 PM EST [place], Karen * BMI (Calculated) Answer Date of Assessment Author 30.68 04/14/2025 2:46 PM EST [place], Karen * Weight in (lb) to have BMI = 25 Answer Date of Assessment Author 154.6 04/14/2025 2:46 PM EST [place], Karen * Pain Assessment Question Answer Date of Assessment Author Pain Score 4 04/14/2025 2:49 PM EST Deeri ng, Karen * Learning Needs Screening Question Answer Date of Assessment Author Are there things (barriers) that make it harder for this patient to learn? No Barriers 04/14/2025 2:46 PM EST [place], Karen What is the best language to use for teaching this patient about his/her health? Setswana 04/14/2025 2:46 PM Александр Hearniss a What format does this patient think is most helpful for learning? Listening;Reading;Pict ures/Video;Demonstrati on 04/14/2025 2:46 PM EST Александр Rolandissa Primary Learner Patient 04/14/2025 2:46 PM EST De Karen joseph * Readiness to Learn Question Answer Date of Assessment Author Readiness Acceptance 04/14/2025 2:46 PM EST Karen Sen documented as of this encounter Mental Status * BP Answer Entry Date Author 113/65 04/14/2025 2:46 PM EST [place], Karen * Height Answer Entry Date Author 66 04/14/2025 2:46 PM EST [place], Karen * Weight Answer Entry Date Author 3040 04/14/2025 2:46 PM EST [place], Karen * BMI (Calculated) Answer Entry Date Author 30.7 04/14/2025 2:46 PM EST [place], Karen * Percent Excess Weight Loss Answer Entry Date Author 0 04/14/2025 2:46 PM EST [place], Karen * Total Weight Change Percent Answer Entry Date Author 2222 04/14/2025 2:46 PM EST [place], Karen * Weight Change Since Preop Answer Entry Date Author 86.16 04/14/2025 2:46 PM EST [place], Karen * Initial Excess Weight Answer Entry Date Author -58.97 04/14/2025 2:46 PM EST [place], Karen * IBW in lbs (Bariatric) Answer Entry Date Author 130 04/14/2025 2:46 PM EST [place], Karen * Weight Change Since Last Visit Answer Entry Date Author 86.16 04/14/2025 2:46 PM EST [place], Karen * IBW in kg (Bariatric) Answer Entry Date Author 58.97 04/14/2025 2:46 PM EST [place], Karen * Percent of IBW Answer Entry Date Author 5,155.16 04/14/2025 2:46 PM EST [place], Karen * EBW (kg) Answer Entry Date Author 3,038.33 04/14/2025 2:46 PM EST [place], Karen * EBW (lbs) Answer Entry Date Author 3,031.88 04/14/2025 2:46 PM EST [place], Karen * Weight Change 24 hrs Answer Entry Date Author 0 04/14/2025 2:46 PM EST [place], Karen * BSA (Calculated - sq m) Answer Entry Date Author 2 04/14/2025 2:46 PM EST [place], Karen * BMI (Calculated) Answer Entry Date Author 30.68 04/14/2025 2:46 PM EST [place], Karen * IBW/kg (Calculated) Male Answer Entry Date Author 63.8 04/14/2025 2:46 PM EST [place], Karen * IBW/kg (Calculated) Female Answer Entry Date Author 59.3 04/14/2025 2:46 PM EST [place], Karen * IBW/kg (Calculated) Answer Entry Date Author 59.3 04/14/2025 2:46 PM EST [place], Karen * Restart Pain Assessment Timer Answer Entry Date Author Yes 04/14/2025 2:49 PM EST [place], Karen * Weight in (lb) to have BMI = 25 Answer Entry Date Author 154.6 04/14/2025 2:46 PM EST [place], Karen * BMI (Calculated) Answer Entry Date Author 30.7 04/14/2025 2:46 PM EST [place], Karen * Percent Excess Weight Loss Answer Entry Date Author 0 04/14/2025 2:46 PM EST [place], Karen * Weight Change Since Preop Answer Entry Date Author 86.18 04/14/2025 2:46 PM EST [place], Karen * Initial Excess Weight Answer Entry Date Author -58.97 04/14/2025 2:46 PM EST [place], Karen * IBW in kg (Bariatric) Answer Entry Date Author 58.97 04/14/2025 2:46 PM EST [place], Karen * IBW in lb (Bariatric) Answer Entry Date Author 130 04/14/2025 2:46 PM EST [place], Karen * Weight Change Since Last Visit Answer Entry Date Author 0 04/14/2025 2:46 PM EST [place], Karen * Percent of IBW Answer Entry Date Author 146.15 04/14/2025 2:46 PM EST [place], Karen * EBW (kg) Answer Entry Date Author 27.19 04/14/2025 2:46 PM EST [place], Karen * EBW (lb) Answer Entry Date Author 60 04/14/2025 2:46 PM EST [place], Karen * Difference in Weight Since Last Visit Answer Entry Date Author 0 04/14/2025 2:46 PM EST [place], Karen * IBW/kg (Calculated) Answer Entry Date Author 59.3 04/14/2025 2:46 PM EST Karen Roland * Adult Low Range Vt 6mL/kg Answer Entry Date Author 355.8 04/14/2025 2:46 PM EST [place]onАлександрKaren * Adult Moderate Range Vt 8mL/kg Answer Entry Date Author 474.4 04/14/2025 2:46 PM EST Александр Rolandissa * Adult High Range Vt 10mL/kg Answer Entry Date Author 593 04/14/2025 2:46 PM EST Александр Rolandissa * Pain Assessment Question Answer Entry Date Author Pain Score 4 04/14/2025 2:49 PM EST Karen Sen documented in this encounter Miscellaneous Notes * Progress Notes - Alessandra See DO - 04/14/2025 2:50 PM EST Images from the original note were not included. Sports Medicine [facility] Note Subjective: Subjective Rossana Arzola is a 40 y.o. female who presents for Follow-up of the Right Foot and Follow-up of the Right Ankle History of Present Illness The patient is a 40-year-old female who presents today for a follow-up after a right foot MRI. She reports persistent pain in her right foot, which she quantifies as 80 percent improved from initial injury. The pain is absent during periods of rest but manifests as a limp during ambulation. She also notes that the severity of the pain fluctuates with different activities and varies from day to day. Additionally, she experiences intermittent pain upon stepping. She has been wearing her regular tennis shoes. She has mild pain in the achilles with stepping off, but does not report this as her primary pain. 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 OB Status IUD Smoking Status Former BSA 2 m?? GEN: Alert, cooperative, in no acute distress. MSK: Right Foot --Inspection: No erythema, ecchymosis, or swelling appreciated. No asymmetry or malrotation of the digits. --Palpation: No tenderness to palpation over the tarsals, metatarsals, or phalanges. No tenderness to palpation over the talus, or medial/lateral malleolus. TTP over the lateral anterior process of the calcaneous. No TTP over the achilles. --Range of Motion: Ankle range of motion 0-15 degrees dorsiflexion, 0-30 degrees plantarflexion, 0-30 degrees inversion, 0-20 degrees eversion. --Strength: 5/5 strength with dorsiflexion, plantarflexion, inversion, and eversion. No pain with resisted testing. --Neurovascular: Sensation intact to light touch. 2+ DP and PT pulses. Results Imaging - MRI of the right foot: 04/13/2025, Nondisplaced fracture of the anterior calcaneal process with associated marrow edema, sprain of the bifurcate ligament, intrasubstance linear tear of the Achilles, and mild peritendinous edema. Assessment and Plan: Diagnosis Plan 1. Right foot pain 2. Stress fracture of metatarsal bone of right foot with routine healing, subsequent encounter 3. Closed nondisplaced fracture of anterior process of right calcaneus with routine healing, subsequent encounter No orders of the defined types were placed in this encounter. Assessment & Plan 1. Nondisplaced fracture of the anterior calcaneal process: The MRI of the right foot completed yesterday shows nondisplaced fracture of the anterior calcanealprocess with associated marrow edema and a sprain of the bifurcate ligament. Evidence of some healing noted on the MRI. Pain varies with different activities and is better when nonweightbearing. Emphasized need for strict NWB. Wear a boot and remain nonweightbearing for 6 weeks. A follow-up appointment with a surgical tar man, Dr. La, has been scheduled in 6 weeks. If the pain persists at that time, will consider a steroid injection at that time. If the steroid injection does not provide long-term relief, surgical removal of the bony fragment will be considered. Muscle loss in the leg is expected but can be rebuilt after resolution of the symptoms in the foot. If pain improves with nonweightbearing, transition to a regular shoe will be considered at the follow-up appointment. 2. Intrasubstance linear tear of the Achilles tendon: The MRI shows an intrasubstance linear tear of the Achilles tendon with mild peritendinous edema. Intermittent pain is reported when stepping. Has significantly improved. No TTP. Follow-up: 6-week follow-up appointment with Dr. La. Patient verbalized understanding of the plan and were agreeable with no further questions. Records Reviewed: Plain Radiographs., Prior office visits., and MRI. Verbal consent was obtained to use ambient listening technology to assist in the documentation of the encounter: yes Electronically Signed by: Alessandra See DO - 04/15/2025 [1] Past Surgical History: Procedure Laterality Date SECTION, CLASSIC GALLBLADDER SURGERY VAGINAL AFTER SECTION [2] No Known Allergies documented in this encounter Plan of Treatment Upcoming Encounters Date Type Department Care Team (Late st Contact Info) Description 05/27/2025 8:20 AM EST Consult [facility] Orthopaedic Surgery & Sports Medicine [address], [address] [place] [address] Michael La DPM [address] [place] [id number] documented as of this encounter Visit Diagnoses Diagnosis Right foot pain- Primary Pain in soft tissues of limb Stress fracture of metatarsal bone of right foot with routine healing, subsequent encounter Closed nondisplaced fracture of anterior process of right calcaneus with routine healing, subsequent encounter documented in this encounter Additional Health Concerns Assessment Noted Time A fall risk assessment has been complete d for the patient 04/14/2025 2:46 PM EST A Body Mass Index follow-up plan has been documented for the patient 04/15/2025 8:24 AM EST documented as of this encounter Care Teams 3Rd Grade Reading Teacher Relationship Specialty Start Date End Date Reno Mehta DO [address] [place] [address] [place] [address] PCP - General 01/28/25 documented as of this encounter
[2025-05-02 11:59] VITALS: BP 147/100; PULSE 101; RESP 18; TEMP 36.7; O2SAT 100; BMI 32.3
[2025-05-02 12:00] VITALS: BP 127/87; PULSE 91; O2SAT 99
--- NOTE | 2025-05-02 12:00 | ECG_ITS ---
APPROVED REPORT Exam: Resting ECG HR:90 bpm ECG Measurements Heart Rate 90 AXES NM 136 P 63 QRSd 90 QRS 39 QT 343 T 39 QTc 390 Conclusion SINUS RHYTHM LOW QRS VOLTAGE IN PRECORDIAL LEADS [QRS DEFLECTION < 1.0 mV IN CHEST LEADS] BORDERLINE ECG Electronically signed by : ALEX COSTA, 05/04/2025 08:42:05
--- OUTSIDE RECORDS SUMMARY | 2025-05-02 12:00 | XMS_ITS | Encounter Summary ---
Author Organization Healthcare Address [address] [place] [address] Care Team Providers Care [employer] Name Role Phone Reno Mehta Geraldo DO Primary Care Provider [phone] Encounter Details Date Type Department Care Team (Latest Contact Info) Description 04/14/2025 Travel Social History Tobacco Use Types Packs/Day Years [...] on file documented as of this encounter Functional Status * Communicable Disease Screening Question Answer Date of Assessment Author Have you been in contact with someone who was sick? No / Unsure 04/14/2025 2:45 PM EST Cherri Redding Do you have any of the following new or worsening symptoms? None of these 04/14/2025 2:45 PM EST Cherri Redding * Travel Screening Question Answer Date of Assessment Author Have you traveled internatio jy[place] or domestically in the last month? No 04/14/2025 2:45 PM EST Cherri Dahl documented as of this encounter Mental Status * Communicable Disease Screening Question Answer Entry Date Author Have you been in contact with someone who was sick? No / Unsure 04/14/2025 2:45 PM EST Cherri Redding Do you have any of the following new or worsening symptoms? None of these 04/14/2025 2:45 PM EST Cherri Redding * Travel Screening Question Answer Entry Date Author Have you traveled internatio jyoti or domestically in the last month? No 04/14/2025 2:45 PM EST Cherri Dahl documented in this encounter Plan of Treatment Upcoming Encounters Date Type Department Care Team (Late st Contact Info) Description 05/27/2025 8:20 AM EST Consult [facility] Orthopaedic Surgery & Sports Medicine [address] [place] [address] Michael La, ARIS [address] [place] [address] documented as of this encounter Visit Diagnoses Not on filedocumented in this encounter Additional Health Concerns Assessment Noted Time A fall risk assessment has been complete d for the patient 04/14/2025 2:46 PM EST A Body Mass Index follow-up plan has been documented for the patient 04/15/2025 8:24 AM EST documented as of this encounter Care Teams [employer] Bonder Relationship Specialty Start Date End Date Reno Mehta DO [address] [place] [address] PCP - General 01/28/25 documented as of this encounter
--- OUTSIDE RECORDS SUMMARY | 2025-05-02 12:00 | XMS_ITS | Data Portability ---
Author Organization JODY HSUKRI Galeano [facility] Address [address] [place] [address] Care Team Providers Care Parts Order And Stock Clerk Name Role Phone GLORIA LAL Referring Provider [phone] Assessment Encounter Date Assessment Date Assessment LastModified [...] 11/07/2022 and thoracic MRI taken 08/30/2023 at [facility]. Dr. Ureña and I have [...] is satisfied with this plan of care. [email or web address] Not available 09/06/2023 16:27:08 Plan of Treatment [...] By Organization Details Last Modified Time 09/06/2023 [id number] CATEGORY DESCRIPTION MINUTES Prepare to see the patient (e.g. review of tests) 10 Obtain/review separately obtained history 5 Perform medically appropriate exam/evaluation 5 Order medications, tests, or procedures Helicopter Pilot Instructor/educate the patient/family/car egiver 15 Refer/communicate w/other healthcare professionals 5 Document clinical information into health record 5 Non-billable independent interp of results Non-billable care coordination TOTAL TIME 45 13307 (15-29) 12615 (30-44) 67671 (45-59) 24346 (60-74) 90660 30232 (10-19) 99169 (20-29) 31213 (30-39) 25539 (40-54) [email or web address] Not available 09/06/2023 16:25:27 Reason for Referral [...] contr ast No observ ation record ed. [address], [place], [address], 09/05/2023 08:36:30 09/06/19 24 08/19/2023 MR, angio gram, head + neck, w/o contr ast No observ ation record ed. [address], [place], [address], 09/10/2023 07:53:44 09/06/19 24 MRI, cervi sixto spine , w/o contr ast No observ ation record ed. [address], [place], [address], 09/10/2023 07:54:19 09/06/19 24 MR, angio gram, head + neck, w/o contr ast No observ ation record ed. [address], [place], [address], 09/10/2023 07:55:45 09/06/19 24 XR, thora cic spine , 3 view No observ ation record ed. [address], [place], [address], 09/10/2023 07:57:27 09/06/[address], thora cic spine , w/wo contr ast No observ ation record ed. [address], [place], [address], 09/10/2023 07:58:35 09/09/19 24 08/30/2023 MRI, thora [...] Diagnosis SNOMED-CT Code Diagnosis ICD10 Code Diagnosis IMO Codes Diagnosis Note [id number] MARTHA ERVIN APRN NEUROSURG [facility] [address] [place] [address] 09/06/2023 13:57:28 09/07/2023 05:05:30 Pain in cervical spine [id number] M54.2 Pain in th oracic spine [id number] M54.6 Paresthesia [id number] R20 .2 Health Concerns Section Related Observation LastModified by Organization Detai ls LastModified Time None Recorded Concern Status LastModified by Organization Details LastModified Time None Recorded Advance Directives Directive None Recorded Payers Insurance Date Sequence Insurance Name Policy Number Policy Talbot Covered Member ID Talbot Member ID Guarantor Name 09/06/2023 1 [place] [id number] Rossana Arzola [id number] Rossana Arzola Notes Date Note Type Note Provider Name and Address Organization Details Recorded Time 09/06/2023 text/html Ms. Arzola is a 38-year-old female who presents to the office for evaluation of her neck and mid back pain with radiation into her left arm as well as diffuse symptoms that started in November 2022 with no known cause. MARTHA ERVIN, JAIDA [address] [place], [address], [facility] 09/06/2023 16:28:23 OBGyn Episode No OBEpisode recorded.
--- OUTSIDE RECORDS SUMMARY | 2025-05-02 12:00 | XMS_ITS | Encounter Summary ---
Author Organization [facility] Address [address] [place] [address] Care Team Providers Care Red Hat Engineer Name Role Phone Gilmar Mehtaew Geraldo DO Primary Care Provider [phone] Encounter Details Date Type Department Care Team (Late Contact Info) Description 04/12/2025 Telephone [facility] [address], [address] [place] [address] Alessandra See, DO [address] [place] [address] Social History Tobacco Use Types Packs/Day Years [...] on file documented as of this encounter Miscellaneous Notes * Telephone Encounter - Lulu Kennedy - 04/12/2025 8:58 AM EST i see you have mychart and can view your sched mri and fu or can call ortho documented in this encounter Plan of Treatment Upcoming Encounters Date Type Department Care Team (Late st Contact Info) Description 05/27/2025 8:20 AM EST Consult [facility] Orthopaedic Surgery & Sports Medicine [address], [address] [place] [address] Michael La, DPMarino [address] [place] [address] documented as of this encounter Visit Diagnoses Not on filedocumented in this encounter Additional Health Concerns Assessment Noted Time A fall risk assessment has been complete d for the patient 04/07/2025 9:25 AM EST A Body Mass Index follow-up plan has been documented for the patient 04/07/2025 9:47 AM EST documented as of this encounter Care Teams Red Hat Engineer Relationship Specialty Start Date End Date Reno Mehta DO [address] [place] [address] PCP - General 01/28/25 documented as of this encounter
--- OUTSIDE RECORDS SUMMARY | 2025-05-02 12:00 | XMS_ITS | Clinical Summary ---
Author Organization [facility] Address [address] [place] [address] Care Team Providers Care Dental Associate Name Role Phone Tyson Reno Geraldo DO Primary Care Provider [phone] Allergies No known active allergies Medications propranolol (Inderal) 10 MG tablet Take 1 tablet (10 mg) by mouth 2 (two) times a day. Active Coenzyme Q10 75 MG capsule 75 mg. 4 Active famotidine (Pepcid) 20 MG tablet 1 tablet (20 mg). 4 Active rosuvastatin (Crestor) 5 MG tablet 1 tablet (5 mg). 5 Active Tirzepatide-We ight Management (ZEPBOUND SC) Inject under the skin. Active omeprazole (PriLOSEC) [address] capsule Take 1 capsule by mouth daily. 5 Active levonorgestrel (Mirena, 52 MG,) 20 MCG/DAY IUD 1 ea by intrauteral administration once Active Mounjaro 2.5 MG/0.5ML solution auto-injector solution pen-injector INJECT 1 SYRINGE SUBCUTANEOUSLY ONCE A WEEK FOR 4 WEEKS 5 Active Active Problems Problem Noted Date Diagnosed Date Elevated parathyroid hormone 06/10/2024 Numbness and tingling 06/10/2024 Encounters Date Type Department Care Team Description 04/14/2025 2:50 PM EST Office Visit [facility] Surgery [facility] Sports Medicine [address] [place] [address] Alessandra See DO Right foot pain (Primary Dx); Stress fracture of metatarsal bone of right foot with routine healing, subsequent encounter; Closed nondisplaced fracture of anterior process of right calcaneus with routine healing, subsequent encounter 04/14/2025 Travel 04/13/2025 8:17 AM EST - 04/13/2025 11:59 PM EST Hospital Encounter [facility] [address] [place] [address] Right foot pain; Stress fracture of metatarsal bone of right foot with routine healing, subsequent encounter; Closed nondisplaced fracture of anterior process of right calcaneus with routine healing, subsequent encounter; Sprain of lateral ligament of ankle joint Discharge Disposition: Home or Self Care 04/13/2025 Travel 04/12/2025 Travel 04/12/2025 Telephone [facility] Surgery [facility] Medicine [address], [address] [place] [address] Alessandra See DO 04/07/2025 9:30 AM EST Office Visit [facility] Surgery [facility] Sports Medicine [address], [address] [place] [address] Alessandra See DO Right foot pain (Primary Dx); Stress fracture of metatarsal bone of right foot with routine healing, subsequent encounter; Closed nondisplaced fracture of anterior process of right calcaneus with routine healing, subsequent encounter; Sprain of lateral ligament of ankle joint 04/07/2025 Travel 02/08/2025 9:22 AM EDT - 02/08/2025 11:59 PM EDT Hospital Encounter [facility] [address] [place] [address] Closed nondisplaced fracture of anterior process of right calcaneus, initial encounter; Partial tear of Achilles tendon, right, initial encounter Discharge Disposition: Home or Self Care 02/08/2025 9:20 AM EDT Office Visit [facility] [address] [place] [address] Alessandra See DO Closed nondisplaced fracture of anterior process of right calcaneus, initial encounter (Primary Dx); Partial tear of Achilles tendon, right, initial encounter 02/08/2025 Travel from Last 3 Months Social History Tobacco Use Types Packs/Day Years [...] Pressure 113/65 04/14/2025 2:46 PM EST Pulse 79 02/08/2025 9:19 AM EDT Temperature 36.5 C (97.7 F) 02/08/2025 9:19 AM EDT Respiratory Rate 15 08/29/2023 2:35 PM EDT Oxygen Saturation 97% 02/08/2025 9:19 AM EDT Inhaled Oxygen Concentration - - Weight 86.2 kg (190 lb) 04/14/2025 2:46 PM EST Height 167.6 cm (5' 6 ) 04/14/2025 2:46 PM EST Body Mass Index 30.67 04/14/2025 2:46 PM EST Plan of Treatment Upcoming Encounters Date Type Department Care Team (Late st Contact Info) Description 05/27/2025 8:20 AM EST Consult [facility] [address] [place] [address] Michael La, ARIS [address] [place] [address] Health Maintenance Due Date Last Done Comments [facility]-HIV Screening 1983 [facility]-Hepatitis C Screening 1983 [facility]-Infant/Child/Adol SDOH Screenings 1983 [facility]-Varicella Vaccines (1 of 2 - 13+ 2-dose series) 1996 [facility]- SDOH Screenings 2001 [facility]-Adult SDOH Screenings 2001 [facility]-Hepatitis B Vaccines (1 of 3 - 19+ 3-dose series) 2002 [facility]-Pap Smear 2004 [facility]-Cervical Cancer Screening 2013 [facility]-HPV/Cotest 2013 [id number] Vaccine (3 - 2024- season) 2025 06/15/2020, 05/18/2020 [facility]-Influenza Vaccine (#1) 2025 [facility]-Depression Screening 06/05/2025 06/05/2024 [facility]-Zoster Vaccines (1 of 2) 2033 [facility]-DTaP,Tdap,and Td Vaccines (2 - Td or Tdap) 12/17/2033 12/18/2023 [facility]-Hepatitis A Vaccines Aged Out 04/25/2018 No longer eligible based on patient's age to complete this topic [facility]-Obesity Intervention Completed 025, 04/07/2025, 02/08/2025, Additional history exists HPV Vaccines (No Doses Required) Completed [facility]-HIB Vaccines Aged Out No longer e ligible based on patient's age to complete this topic [facility]-IPV Vaccines Aged Out No longer e ligible based on patient's age to complete this topic [facility]-Pneumococcal Vaccine: Pediatrics (0 to 5 Years) and At-Risk Patients (6 to 49 Years) Aged Out No longer eligible based on patient's age to complete this topic [facility]-Rotavirus Vaccines Aged Out No lo nger eligible based on patient's age to complete this topic Procedures Procedure Name Priority Date/Time Associated Diagnosis Comments MR ANKLE RIGHT WO IV CONTRAST Routine 04/13/2025 8:44 AM EST Right foot pain Stress fracture of metatarsal bone of right foot with routine healing, subsequent encounter Closed nondisplaced fracture of anterior process of right calcaneus with routine healing, subsequent encounter Sprain of lateral ligament of ankle joint XR ANKLE RIGHT 3+ VIEWS Routine 02/08/2025 9:57 AM EDT Closed nondisplaced fracture of anterior process of right calcaneus, initial encounter Partial tear of Achilles tendon, right, initial encounter XR FOOT RIGHT 3+ VIEWS Routine 02/08/2025 9:57 AM EDT Closed nondisplaced fracture of anterior process of right calcaneus, initial encounter Partial tear of Achilles tendon, right, initial encounter from Last 3 Months Results * MR Ankle Right wo IV [...] STIR, sagittal T1, coronal ZULEIMA. COMPARISON: Radiographs [id number] FINDINGS: Bone and Bone Marrow: Nondisplaced fracture [...] STIR, sagittal T1, coronal ZULEIMA. COMPARISON: Radiographs [id number] FINDINGS: Bone and Bone Marrow: Nondisplaced fracture [...] See DO IMG MRI PROCEDURES Final Result * XR Foot Right 3+ Views (02/08/2025 9:57 AM EDT) Anatomical Region Laterality Modality Lower Extremities, Foot Right Digital Radiography Impressions 02/08/2025 10:58 AM EDT Similar appearance of cortical thickening of the second metatarsal which could be related to prior injury. No acute fracture. CRITICAL RESULT: No. COMMUNICATION: Per this written report. Drafted by Zain Rosado MD on 02/08/2025 10:57 AM Final report signed by Zain Rosado MD on 02/08/2025 10:58 AM Narrative 02/08/2025 10:58 AM EDT CLINICAL INDICATION: pain TECHNIQUE: XR ANKLE RIGHT 3+ VIEWS, XR FOOT RIGHT 3+ VIEWS COMPARISON: 11/23/2024 FINDINGS: Ankle mortise and talar dome are intact. No significant ankle swelling. No large ankle effusion. No ankle fracture or dislocation. Alignment of the foot is within normal limits. Redemonstration of cortical thickening along the medial aspect of the second metatarsal diaphysis. Procedure Note Zain Rosado MD - 02/08/2025 CLINICAL INDICATION: pain TECHNIQUE: XR ANKLE RIGHT 3+ VIEWS, XR FOOT RIGHT 3+ VIEWS COMPARISON: 11/23/2024 FINDINGS: Ankle mortise and talar dome are intact. No significant ankle swelling. Nolarge ankle effusion. No ankle fracture or dislocation. Alignment of thefoot is within normal limits. Redemonstration of cortical thickening alongthe medial aspect of the second metatarsal diaphysis. IMPRESSION: Similar appearance of cortical thickening of the second metatarsal whichcould be related to prior injury. No acute fracture. CRITICAL RESULT: No. COMMUNICATION: Per this written report. Drafted by Zain Rosado MD on 02/08/2025 10:57 AM Final report signed by Zain Rosado MD on 02/08/2025 10:58 AM us Alessandra See DO IMG XR PROCEDURES Final R esult * XR Ankle Right 3+ Views (02/08/2025 9:57 AM EDT) Anatomical Region Laterality Modality Lower Extremities, Ankle Right Digital Radiography Impressions 02/08/2025 10:58 AM EDT Similar appearance of cortical thickening of the second metatarsal which could be related to prior injury. No acute fracture. CRITICAL RESULT: No. COMMUNICATION: Per this written report. Drafted by Zain Rosado MD on 02/08/2025 10:57 AM Final report signed by Zain Rosado MD on 02/08/2025 10:58 AM Narrative 02/08/2025 10:58 AM EDT CLINICAL INDICATION: pain TECHNIQUE: XR ANKLE RIGHT 3+ VIEWS, XR FOOT RIGHT 3+ VIEWS COMPARISON: 11/23/2024 FINDINGS: Ankle mortise and talar dome are intact. No significant ankle swelling. No large ankle effusion. No ankle fracture or dislocation. Alignment of the foot is within normal limits. Redemonstration of cortical thickening along the medial aspect of the second metatarsal diaphysis. Procedure Note Zain Rosado MD - 02/08/2025 CLINICAL INDICATION: pain TECHNIQUE: XR ANKLE RIGHT 3+ VIEWS, XR FOOT RIGHT 3+ VIEWS COMPARISON: 11/23/2024 FINDINGS: Ankle mortise and talar dome are intact. No significant ankle swelling. Nolarge ankle effusion. No ankle fracture or dislocation. Alignment of thefoot is within normal limits. Redemonstration of cortical thickening alongthe medial aspect of the second metatarsal diaphysis. IMPRESSION: Similar appearance of cortical thickening of the second metatarsal whichcould be related to prior injury. No acute fracture. CRITICAL RESULT: No. COMMUNICATION: Per this written report. Drafted by Zain Rosado MD on 02/08/2025 10:57 AM Final report signed by Zain Rosado MD on 02/08/2025 10:58 AM Alessandra See DO IMG XR PROCEDURES Final R esult from Last 3 Months Insurance KELLY Care Teams Dental Associate Relationship Specialty Start Date End Date Reno Mehta DO [address] [place] [address] PCP - General 01/28/25
--- OUTSIDE RECORDS SUMMARY | 2025-05-02 12:00 | XMS_ITS | Clinical Summary ---
Author Organization [facility] Address [address] [place] [address] Care Team Providers Care Distance Education Coordinator Name Role Phone Reno Mehta Primary Care Provider + Allergies No known active allergies Medications Levonorgestrel (MIRENA, 52 MG, IU) Active famotidine (PEPCID) 20 MG tablet 4 Active tretinoin (RETIN-A) 0.025 % cream APPLY A PEA SIZE AMOUNT TO ENTIRE FACE EACH NIGHT 4 Active triamcinolone (KENALOG) 0.1 % cream Apply topically to the appropriate area as directed See Admin Instructions. Apply topically to the affected area twice daily 4 Active propranolol (INDERAL) 20 MG tabletIndicatio ns:Tachycardia Take 1 tablet by mouth twice daily 180 tablet 1 4 Active Additional Information Patient taking differently: 10 mgOral 2 Times Daily, Informant: Self, Reported on 08/17/2024 rosuvastatin (CRESTOR) 5 MG tablet Take 1 tablet by mouth Daily. 5 Active coenzyme Q10 100 MG capsule Take 1 capsule by mouth Daily. Active multivitamin with minerals (MULTIVITAMIN ADULT PO) Take 1 tablet by mouth Daily. Active OMEGA-3 FATTY ACIDS PO Take 2,000 mg by mouth Daily. Active VITAMIN D-VITAMIN K PO Take 1 tablet by mouth Daily. Active FIBER COMPLETE PO Take 1 tablet by mouth 3 times a day. Active Berberine Chloride (BERBERINE HCI PO) Take 1 tablet by mouth Daily. Active MAGNESIUM CITRATE PO Take 2 tablets by mouth Daily. Active Red Yeast Rice Extract (RED YEAST RICE PO) Take 1 tablet by mouth Daily. Active Active Problems Problem Noted Date Diagnosed Date Tachycardia 07/30/2023 Assessment & Plan (02/18/2024 4:30 PM EDT): Doing well on propranolol. Will continue. Assessment & Plan (07/30/2023 10:02 AM EDT): Holter monitor from 04/03/23 revealed that the patient events corresponded to sinus tachycardia. No significant pauses or arrhythmias. 25% tachycardia burden. HR today is 105. -Trial of Propranolol 20mg twice daily -Patient will send me a message through [employer] in one month to let me know how she is doing on Propranolol -Follow up in 6 months. Precordial chest pain 07/30/2023 Assessment & Plan (07/30/2023 9:57 AM EDT): Stress echo today revealed a normal stress echo consistent with a low risk study for myocardial ischemia. Oligohydramnios 09/24/2019 Maternal care for breech presentation, single ge station 09/24/2019 Family History Medical History Relation Name Comments Kidney cancer Brother Diabetes Father Coronary artery disease Mother Relation Name Status Comments Brother Alive Father Alive Mother Alive Social History Tobacco Use Types Packs/Day Years Used Date Smoking Tobacco: Former Cigarettes Q uit: 2009 Passive Smoke Exposure: Past Smokeless Tobacco: Never Tobacco Cessation:Counseling Given: Yes Alcohol Use Standard Drinks/Week Comments Not Currently 0 (1 standard drink = 0.6 oz pur e alcohol) AUDIT-C Answer Date Recorded Q1: How often do you have a drink containing alc ohol? Never 09/23/2019 Average Number of Drinks Not on file 020 Frequency of Binge Drinking Not on file 09/04 [place] Depression Scale Answer Date Recorded [place] Depression Scale Total 0 09/25/2019 The thought of harming myself has occurred to me . Never 09/25/2019 Comments No Sex and Gender Information Value Date Recorded Sex Assigned at Not on file Legal Sex Female 3:57 PM EDT Gender Identity Not on file Sexual Orientation Not on file Last Filed Vital Signs Vital Sign Reading Time Taken Comments Blood Pressure 110/76 08/17/2024 3:18 PM EDT Pulse 87 08/17/2024 3:18 PM EDT Temperature 36.7 C (98 F) 09/26/2019 7:56 AM EDT Respiratory Rate 16 09/26/2019 7:56 AM EDT Oxygen Saturation 97% 08/17/2024 3:18 PM EDT Inhaled Oxygen Concentration - - Weight 88.5 kg (195 lb) 08/17/2024 3:18 PM EDT Height 170.2 cm (5' 7 ) 08/17/2024 3:18 PM EDT Body Mass Index 30.54 08/17/2024 3:18 PM EDT Plan of Treatment Upcoming Encounters Date Type Department Care Team (Late st Contact Info) Description 06/23/2025 2:45 PM EST Office Visit [facility] [address] [place] [address] Marialuisa Kirkpatrick MD [address] [place] [address] Health Maintenance Due Date Last Done Comments Annual Gynecologic Pelvic an d Breast Exam 1983 PAP SMEAR 2004 ANNUAL PHYSICAL 09/22/2019 MAMMOGRAM 2023 INFLUENZA VACCINE 12/04/2024 LIPID PANEL 02/10/2025 02/11/2024, 04/10/2023 TDAP/TD VACCINES (2 - Td or Tdap) 12/17/2033 12/18/2023 HEPATITIS C SCREENING Completed 02/06/2019 Pneumococcal Vaccine 0-49 Aged Out No longer eligible based on patient's age to complete this topic Procedures Procedure Name Priority Date/Time Associated Diagnosis Comments LIPID PANEL Routine 02/11/2024 Hypercholesteremia HEPATITIS C ANTIBODY Routine 02/06/2019 from Last 3 Months or Most Recently Relevant to Health Maintenance Results * Lipid Panel (02/11/2024) Blood us Marialuisa Kirkpatrick MD LAB BLOOD ORDERABLES Final R esult [facility]
[address] [place] [address], * Hepatitis C Antibody (02/06/2019) External Hepatitis C Ab Negative Blood Historical Provider LAB BLOOD ORDERABLES Suki davila Result from Last 3 Months or Most Recently Relevant to Health Maintenance Insurance Michaela Stone [place] [id number] [employer] Advance Directives * CPR (Attempt to Resuscitate) (Latest Code Status on File) Date Activated Date Inactivated Comments 09/24/2019 11:54 AM 09/26/2019 4:58 PM Question Answer Comments Code Status (Patient has no pulse and is not breathing): CPR (Attempt to Resuscitate) Medical Interventions (Patie nt has pulse or is breathing): Full * CPR (Attempt to Resuscitate) Date Activated Date Inactivated Comments 09/24/2019 7:25 AM 09/24/2019 11:54 AM Question Answer Comments Code Status (Patient has no pulse and is not breathing): CPR (Attempt to Resuscitate) Medical Interventions (Patie nt has pulse or is breathing): Full Care Teams Distance Education Coordinator Relationship Specialty Start Date End Date eRno Mehta DO [address] [place] [address] PCP - General Internal Medicine 07/29/23
--- OUTSIDE RECORDS SUMMARY | 2025-05-02 12:00 | XMS_ITS | Encounter Summary ---
Author Organization [facility] Address [address] [place] [address] Care Team Providers Care Exhibits Coordinator Name Role Phone Reno Mehta Primary Care Provider + Reason for Visit * Reason Comments Med Refill Encounter Details Date Type Department Care Team (Late st Contact Info) Description 12/13/2024 Refill [facility] [address] [place] [address] Roz Lara, P[employer] RECREATION MANAGER [address] [place] [address] Med Refill Social History Tobacco Use Types Packs/Day Years Used Date Smoking Tobacco: Former Cigarettes Q uit: 2009 Passive Smoke Exposure: Past Smokeless Tobacco: Never Alcohol Use Standard Drinks/Week Comments Not Currently 0 (1 standard drink = 0.6 oz pur e alcohol) AUDIT-C Answer Date Recorded Q1: How often do you have a drink containing alc ohol? Never 09/23/2019 Average Number of Drinks Not on file 020 Frequency of Binge Drinking Not on file 09/04 [place] Depression Scale Answer Date Recorded [place] Depression Scale Total 0 09/25/2019 The thought of harming myself has occurred to me . Never 09/25/2019 Comments No Sex and Gender Information Value Date Recorded Sex Assigned at Not on file Legal Sex Female 3:57 PM EDT Gender Identity Not on file Sexual Orientation Not on file documented as of this encounter Plan of Treatment Upcoming Encounters Date Type Department Care Team (Late st Contact Info) Description 06/23/2025 2:45 PM EST Office Visit [facility] [address] [place] [id number] Marialuisa Kirkpatrick MD [address] [place] [address] documented as of this encounter Visit Diagnoses Diagnosis Tachycardia Unspecified tachycardia documented in this encounter Care Teams Exhibits Coordinator Relationship Specialty Start Date End Date Reno Mehta DO [address] [place] [address] PCP - General Internal Medicine 07/29/23 documented as of this encounter
--- OUTSIDE RECORDS SUMMARY | 2025-05-02 12:00 | XMS_ITS | Encounter Summary ---
Author Organization Healthcare Address [address] [place] [address] Care Team Providers Care Irrigation Teacher Name Role Phone Reno Mehta Geraldo DO Primary Care Provider [phone] Encounter Details Date Type Department Care Team (Latest Contact Info) Description 04/07/2025 Travel Social History Tobacco Use Types Packs/Day [...] Assessment Author Have you been in contact wit h someone who was sick? No / Unsure 04/07/2025 9:15 AM EST Drake Cobos Do you have any of the follo wing new or worsening symptoms? None of these 04/07/2025 9:15 AM Met ralph Arriaga * Travel Screening Question Answer Date of Assessment Author Have you traveled intern[place] or domestically in the last month? No 04/07/2025 9:15 AM Drake Arriaga documented as of this encounter Mental Status * Communicable Disease Screening Question Answer Entry Date Author Have you been in contact wit h someone who was sick? No / Unsure 04/07/2025 9:15 AM EST Drake Cobos Do you have any of the follo wing new or worsening symptoms? None of these 04/07/2025 9:15 AM EST Met ralph Cobos * Travel Screening Question Answer Entry Date Author Have you traveled intern[place] or domestically in the last month? No 04/07/2025 9:15 AM EST Drake Cobos documented in this encounter Plan of Treatment Upcoming Encounters Date Type Department Care Team (Late st Contact Info) Description 05/27/2025 8:20 AM EST Consult [facility] Orthopaedic Surgery & Sports Medicine [address] [place] [address] Michael La, DPMarino [address] [place] [address] documented as of this encounter Visit Diagnoses Not on filedocumented in this encounter Additional Health Concerns Assessment Noted Time A fall risk assessment has been complete d for the patient 04/07/2025 9:25 AM EST A Body Mass Index follow-up plan has been documented for the patient 04/07/2025 9:47 AM EST documented as of this encounter Care Teams Irrigation Teacher Relationship Specialty Start Date End Date Reno Mehta DO [address] [place] [address] PCP - General 01/28/25 documented as of this encounter
--- OUTSIDE RECORDS SUMMARY | 2025-05-02 12:00 | XMS_ITS | Encounter Summary ---
Author Organization Healthcare Address [address] [place] [address] Care Team Providers Care Mint Machine Operator Name Role Phone Reno Mehta DO Primary Care Provider [phone] Encounter Details Date Type Department Care Team (Latest Contact Info) Description 04/13/2025 Travel Social History Tobacco Use Types Packs/Day [...] Info) Description 05/27/2025 8:20 AM EST Consult [facility] Orthopaedic Surgery & Sports Medicine [address] [place] [address] Michael La, ARIS [address] [place] [address] documented as of this encounter Visit Diagnoses Not on filedocumented in this encounter Additional Health Concerns Assessment Noted Time A fall risk assessment has been complete d for the patient 04/07/2025 9:25 AM EST A Body Mass Index follow-up plan has been documented for the patient 04/07/2025 9:47 AM EST documented as of this encounter Care Teams Mint Machine Operator Relationship Specialty Start Date End Date Reno Mehta DO [address] [place] [address] PCP - General 01/28/25 documented as of this encounter
--- OUTSIDE RECORDS SUMMARY | 2025-05-02 12:00 | XMS_ITS | Encounter Summary ---
Author Organization Healthcare Address [address] [place] [address] Care Team Providers Care Material Combiner Name Role Phone Reno Mehta Geraldo DO Primary Care Provider [phone] Encounter Details Date Type Department Care Team (Latest Contact Info) Description 04/12/2025 Travel Social History Tobacco Use Types Packs/Day [...] someone who was sick? No / Unsure 04/12/2025 9:26 PM EST Lucrecia Aaron Do you have any of the follo wing new or worsening symptoms? None of these 04/12/2025 9:26 PM EST Savannah Aaron L * Travel Screening Question Answer Date of Assessment Author Have you traveled [place] or domestically in the last month? No 04/12/2025 9:26 PM EST Mycha rt, Generic documented as of this encounter Mental Status * Communicable Disease Screening Question Answer Entry Date Author Have you been in contact wit h someone who was sick? No / Unsure 04/12/2025 9:26 PM EST Lucrecia Aaron L Do you have any of the follo wing new or worsening symptoms? None of these 04/12/2025 9:26 PM EST Savannah Aaron L * Travel Screening Question Answer Entry Date Author Have you traveled intern[place] or domestically in the last month? No 04/12/2025 9:26 PM EST Mycha rt, Generic documented in this encounter Plan of Treatment Upcoming Encounters Date Type Department Care Team (Late st Contact Info) Description 05/27/2025 8:[address] [facility] Orthopaedic Surgery & Sports Medicine [address] [place] [address] Michael La, ARIS [address] [place] [address] documented as of this encounter Visit Diagnoses Not on filedocumented in this encounter Additional Health Concerns Assessment Noted Time A fall risk assessment has been complete d for the patient 04/07/2025 9:25 AM EST A Body Mass Index follow-up plan has been documented for the patient 04/07/2025 9:47 AM EST documented as of this encounter Care Teams Material Combiner Relationship Specialty Start Date End Date Reno Mehta DO [address] [place] [address] PCP - General 01/28/25 documented as of this encounter
[2025-05-02 12:12] LABS: Coronavirus 19, PCR Not Detected (NotDetected); Influenza A, PCR Not Detected (NotDetected); Influenza B, PCR Not Detected (NotDetected)
[2025-05-02 12:13] LABS: Hematocrit 41.3 % (37.0-47.0); Hemoglobin 13.1 g/dL (12.2-16.2); Immature Granulocytes % 0.3 %; Mean Corpuscular HGB Conc 31.7 g/dL (31.8-35.4); Mean Corpuscular Hemoglobin 26.7 pg (27.0-31.2); Mean Corpuscular Volume 84.1 fl (81-99); Nucleated Red Blood Cells % 0 %; Platelet Count 227 K/mm3 (142-424); Red Blood Count 4.91 M/mm3 (4.20-5.40); Red Cell Distribution Width-SD 38.9 fL; White Blood Count 7.8 K/mm3 (4.8-10.8)
[2025-05-02 12:15] VITALS: PULSE 87; O2SAT 100
[2025-05-02 12:17] LABS: Albumin Level 4.6 g/dl (3.5-5.0); Chloride 104 mmol/L (98-107); Potassium 4.0 mmoL/L (3.5-5.1); Sodium 138 mmol/L (136-145)
[2025-05-02 12:20] LABS: Alanine Aminotransferase 22 U/L (12-78); Albumin/Globulin Ratio 1.5 (1.1-1.8); Alkaline Phosphatase 80 U/L (38-126); Anion Gap 12.0 mEq/L (5-15); Aspartate Amino Transferase 25 U/L (14-36); Bilirubin,Total 0.5 mg/dl (0.2-1.3); Blood Urea Nitrogen 14 mg/dl (7-17); Calcium 9.4 mg/dl (8.4-10.2); Carbon Dioxide 26 mmol/L (22.0-30.0); Creatinine Clearance Estimated 117 mL/min (50-200); Creatinine,Serum 0.90 mg/dl (0.52-1.04); Estimated Glomerular Filt Rate 69 ml/min (>60); GFR (African American) 83 ML/MIN (>60); Globulin 3.1 g/dL (1.3-3.2); Glucose 96 mg/dl (74-100); Total Protein,Serum 7.7 g/dl (6.3-8.2)
[2025-05-02 12:21] LABS: Magnesium 2.2 mg/dl (1.6-2.3)
[2025-05-02 12:23] LABS: HCG Qualitative, Serum Negative (Negative)
--- NOTE | 2025-05-02 12:26 | HMH.EDGENADL ---
Discharge Plan Disposition Patient Disposition: Home, Self-Care Prescriptions Prescriptions: No Action multivitamin with minerals Liquid 30 ml PO DAILY Patient Comments: Uyen Cai Multivitamin with hair growth vitamin D3-vitamin K2 125 mcg (5,000 unit)-100 mcg capsule 1 cap PO DAILY rosuvastatin 5 mg tablet 5 mg PO DAILY loratadine 10 mg tablet 10 mg PO DAILY Mirena 20 mcg/24 hours (8 yrs) 52 mg intrauterine device 1 device intrauterine DIRECTED Ultra CoQ10 75 mg capsule 75 mg PO DAILY Qty: 90 3RF omega-3 fatty acids 500 mg capsule 1,000 mg PO DAILY Qty: 180 3RF propranolol 20 mg tablet 10 mg PO BID omeprazole 20 mg capsule,delayed release(DR/EC) See Rx Instructions .ROUTE .COMPLEX Qty: 90 3RF Dose Instruction: Take 1 capsule by mouth once daily Rx Instructions: Take 1 capsule by mouth once daily Mounjaro 5 mg/0.5 mL pen injector 5 mg SQ WEEKLY Qty: 2 2RF Referrals Follow up/Referrals: Reno Mehta DO [Primary Care Provider, Family Practice] - See instructions Activity Restrictions/Add. Instructions Additional Instructions/Restrictions: At this time it was felt you are safe to be discharged home. If new or worsening symptoms please do not hesitate to return the emergency department. Please continue to follow-up on an outpatient basis if this keeps going on for additional workup. Clinical Impressions Clinical Impression: Altered sensorium Instructions Patient Instructions: DI for Syncope in Adults (Fainting), DI for Syncope in Children (Fainting) Print Language Print Language: Maltese Discharge ED Provider: Chandan Cheek General Adult HPI General Chief complaint: Syncope Stated complaint: Dizziness, feels like passing out, tingling Time Seen by Provider: 05/02/25 11:53 Mode of Arrival: Ambulatory Source of Information: Patient Description of Symptoms (Recalled from ER Triage Doc. by RN): States that she was at [employer] when her legs began to tingle and her whole left side felt funny. Denies actually passing out. States she just feels off and feels weird. Denies any vomiting or diarrhea. History of Present Illness HPI narrative: Patient is a 40-year-old with past medical history of previous paresthesias has been evaluated by neurology who presents emergency department for evaluation of abnormal sensorium. Patient had a warm sensation between her legs when she stood up at [employer], felt as if the lateral aspect of her left leg was wet. No passing out however the symptoms have caused dysphoria causing her to present here for continued evaluation. She presented to neurology who evaluated her paresthesias previously including with MRI and was reportedly under the impression that this was anxiety driven. No reports of chest pain or abdominal pain no trauma. Patient has nonspecific lightheadedness but has not had true syncope. No other acute complaints at this time. Of note patient is on Mounjaro but has skipped her dose and eaten poorly over the last week compared to her baseline diet with decreased p.o. water intake. She has irregular periods with IUD at baseline. Please note that above description of symptoms, in this electronic medical record under categorization of recalled from ER triage doctor by RN are reflective of an initial nursing assessment, however, is not reflective of my full history and physical exam that was personally taken and clarified. Consequentially, this preceding description of symptoms, which may include the patient's categorized chief complaint in the EMR, do not reflect my personal clinical impression, and the ultimate description of history of present illness and patient stated complaints should be deferred to this section of the note. Unless stated otherwise or congruent with this section of the note, additional signs, symptoms, or incongruence should be interpreted as inaccurate with my clinical impression. Related Data Home Medications ?Medication ?Instructions ?Recorded ?Confirmed levonorgestrel (Mirena) 1 device intrauterine DIRECTED 03/13/22 12/31/24 control multivitamin with minerals 30 ml PO DAILY 09/26/23 12/31/24 propranolol 20 mg tablet 10 mg PO BID 09/26/23 12/31/24 vitamin D3 125 mcg (5,000 1 cap PO DAILY 09/26/23 12/31/24 unit)-vitamin K2 100 mcg capsule loratadine 10 mg tablet 10 mg PO DAILY 11/04/24 12/31/24 rosuvastatin 5 mg tablet 5 mg PO DAILY 11/04/24 12/31/24 Previous Rx's ?Medication ?Instructions ?Recorded coenzyme Q10 75 mg capsule (Ultra 75 mg PO DAILY #90 caps 08/23/23 CoQ10) omega-3 fatty acids 500 mg capsule 1,000 mg (2 x 500 mg) PO DAILY 08/23/23 #180 caps omeprazole 20 mg capsule,delayed See Rx Instructions .Route 12/25/24 release .COMPLEX #90 caps tirzepatide 5 mg/0.5 mL 5 mg (0.5 mL) SQ WEEKLY #2 mL 04/22/25 subcutaneous pen injector (Jennifer) Allergies Allergy/AdvReac Type Severity Reaction Status Date / Time No Known Allergies Allergy Verified 12/31/24 15:53 [facility] Disclaimer: The information contained in this section may have been updated after the patient was seen, as this information can be updated by other users. Medical History BMI 29.0-29.9,adult Encounter for hepatitis C screening test for low risk patient Screening for HIV (human immunodeficiency virus) Costochondritis Mass of chest wall Infected cyst of skin Rash due to allergy Pain, chest wall Bilateral swelling of feet and ankles Left foot pain Acid reflux Vaginal yeast infection Abnormal weight gain Weakness of left upper extremity Neck pain Occipital neuralgia of right side Acute upper back pain Strep throat Pelvic pain Strep throat Anxiety about health Establishing care with new doctor, encounter for Paresthesias CAD (coronary artery disease) Hyperlipidemia Angina pectoris Sinus tachycardia Chest pain Gastroenteritis Surgical History S/P wisdom tooth extraction History of cholecystectomy History of section H/O LEEP Family History Grandmother Cancer paternal Family/Other Cancer paternal Other Family history of hyperlipidemia Family history of hypertension Family history of myocardial infarction Social History Smoking Status: Never smoker years smoked: 10 how long ago did patient quit smokin alcohol intake: current alcohol intake frequency: holidays/special occasions only substance use type: denies use current occupational status: employed Travel in the last 8 weeks?: Inside the [place] household members: spouse and children housing: house Have you lived/traveled outside US in past 30 days?: No Contact w/someone who lives/traveled outside US past 30 days?: No Exposure to someone with infectious disease in past 14 days?: No Do you have a fever (greater than 100.4 F or 38 C)?: No Have you tested positive for COVID-19?: No Exposed to someone with COVID-19 in past 14 days?: No Do you have a sore throat?: No Do you have a cough?: No Do you have any weakness?: No Do you have any diarrhea?: No Are you experiencing any unusual bleeding?: No Do you have any muscle aches/pain?: No Do you have any abdominal pain?: No Are you experiencing loss of taste or smell?: No Other Medical History Have you received the Flu Vaccine for this season: No Have you received the Pneumonia Vaccine: No ROS Obtained: Yes Systems reviewed as appropriate & no additional complaints except as documented Physical Exam General General appearance: alert and in no apparent distress Head Head exam: atraumatic and normocephalic Eye Eye exam: Present PERRL and EOMI ENT ENT exam: Present mucous membranes moist Neck Neck exam: Present normal inspection Chest Chest inspection: Present normal inspection and symmetric chest wall rise Respiratory Respiratory exam: Absent respiratory distress Cardiovascular Cardiovascular exam: Present regular rate and normal rhythm Abdominal Exam Abdominal exam: Absent guarding Extremities Exam Extremities exam: Present normal inspection Neurological Exam Neurological exam: Present alert, CN II-XII intact, normal gait and motor sensory deficit (Decreased sensation left lateral hip compared to the contralateral side. No overlying skin changes.) Psychiatric Psychiatric exam: Present normal affect Skin Skin exam: Present warm and dry Medical Decision Making Medical Records Screening: Per USPSTF and CDC recommendations, given the prevalence of disease in our region, it is our hospital?s policy to screen for HIV and viral Hepatitis for all patients aged 18 and over and those with ongoing risk factors. Ulisses Inquiry Pt receiving controlled substance: No Vital Signs: 05/02/25 11:59 05/02/25 12:00 05/02/25 12:15 Temperature 98.1 F Temperature Source Oral Pulse Rate 91 H 87 Pulse Rate [Radial] 101 H Respiratory Rate 18 Blood Pressure 127/87 Blood Pressure [Right Arm] 147/100 H Blood Pressure Mean [Right Arm] 115 Blood Pressure Source [Right Arm] Automatic Cuff Blood Pressure Position [Right Arm] Sitting 02 Sat by Pulse Oximetry 100 99 100 Oxygen Delivery Method Room Air Room Air Lab Data Lab Results 05/02/25 12:05: WBC 7.8, RBC 4.91, Hgb 13.1, Hct 41.3, MCV 84.1, MCH 26.7 L, MCHC 31.7 L, RDW 12.8, Plt Count 227, MPV 10.9 H, Neut % (Auto) 61.9, Lymph % (Auto) 29.0, [place] % (Auto) 7.0, Eos % (Auto) 1.3, Baso % (Auto) 0.5, Neut # (Auto) 4.8, Lymph # (Auto) 2.3, [place] # (Auto) 0.6, Eos # (Auto) 0.1, Baso # (Auto) 0.0, Sodium 138, Potassium 4.0, Chloride 104, Carbon Dioxide 26, Anion Gap 12.0, BUN 14, Creatinine 0.90, Estimated Creat Clear 117, Estimated GFR 69, Est GFR ( Amer) 83, Glucose 96, Calcium 9.4, Magnesium 2.2, Total Bilirubin 0.5, AST 25, ALT 22, Alkaline Phosphatase 80, Total Protein 7.7, Albumin 4.6, Globulin 3.1, Albumin/Globulin Ratio 1.5, TSH 1.99, Free T4 0.85, Serum HCG, Qual Negative 05/02/25 12:05 05/02/25 12:05 Orders (Tests/Meds): ED MEDICATIONS Generic Name Dose Route Start Last Admin Trade Name Freq PRN Reason Stop Dose Admin Lactated Ringer's 1,000 mls @ 999 mls/hr 05/02/25 12:25 05/02/25 12:38 Lactated Ringer's 1000 Ml Bag IV 05/02/25 13:25 999 mls/hr .Q1H1M ONE Administration ORDERS Category Date Time Status CBC w/Auto Diff [Complete Blood Count Auto Diff] Stat Lab 05/02/25 12:05 Completed CMP [Comprehensive Metabolic Panel] Stat Lab 05/02/25 12:05 Completed Free T4 (Free Thyroxine) Stat Lab 05/02/25 12:05 Completed HCG Qualitative, Serum Stat Lab 05/02/25 12:05 Completed HIV Combo Stat Lab 05/02/25 12:05 Received Hepatitis C Ab Qual. W/ RFX Stat Lab 05/02/25 12:05 Received MG [Magnesium] Stat Lab 05/02/25 12:05 Completed Rapid PCR Covid and Flu A/B Stat Lab 05/02/25 12:05 Received TSH [Thyroid Stimulating Hormone] Stat Lab 05/02/25 12:05 Completed EKG Request [ECG Request] Stat Y 05/02/25 11:56 Ordered ECG Data Tracing #1: Independently interpreted by me rate is 90, rhythm is regular, axis is normal, no ST elevation in anatomical contiguous leads, QTc 390, no high degree AV block, no dagger Q waves in the lateral leads. Medical Decision Narrative: In summary patient is a 40-year-old female with past medical history described above presents emergency department for evaluation of altered sensorium. Patient is hemodynamically stable and nontoxic-appearing upon arrival, afebrile. Patient has not had any incontinence, has 5 out of 5 strength bilateral upper and lower extremities. She does have altered sensation in her left lateral hip, no overlying skin changes no asymmetric swelling of the lower extremity cranial nerves intact. I do not have any concern for CVA based on history and physical exam. Differential includes demyelinating pathology, electrolyte abnormality, dehydration, anxiety, compressive neuropathy, among others. Workup will be conducted with hematologic labs. Imaging was considered but I do not think patient has a CVA and she has had previous MRI although the paresthesias are migratory I do not think that there is any emergent MOLECULAR SPECTROSCOPIST pathology that would warrant emergent MRI at this time and previous CTA head and neck are reviewed by me and do not have any stenosis I do not think there is any benefit of reordering these. Initial interventions include crystalloid bolus. Initial workup reviewed by me no significant leukocytosis no transfusable anemia, no KRYSTIAN or critical electrolyte abnormality, thyroid studies normal hCG negative. Upon repeat evaluation patient continued to be well-appearing. Given this I feel the patient is appropriate for outpatient management at this time was given return precautions and verbalized understanding. Critical Care Critical Care Time Critical Care Time: No
[2025-05-02 12:30] VITALS: BP 111/81; PULSE 87; O2SAT 100
[2025-05-02] MEDS: LACTATED RINGERS 1000ML 1,000 ML 999 ML IV (12:38)
[2025-05-02 12:43] LABS: Free T4 (Free Thyroxine) 0.85 ng/dl (0.78-2.19)
[2025-05-02 12:51] LABS: Thyroid Stimulating Hormone 1.99 uIU/mL (0.465-4.68)
[2025-05-02 13:00] VITALS: BP 122/80; PULSE 81; O2SAT 100
[2025-05-02 13:05] VITALS: BP 120/80; PULSE 80; RESP 16; TEMP 36.8; O2SAT 95
[2025-05-02 13:17] LABS: Hepatitis C Ab Qual. W/ RFX NEGATIVE (Negative)
== END 2025-05-02 13:52 | disposition home or self-care (01) ==
PROVIDERS: Emergency Provider Emergency Medicine; PCP Internal Medicine
DX: R41.82 Altered mental status, unspecified (principal); E78.5 Hyperlipidemia, unspecified; I25.10 Atherosclerotic heart disease of native coronary artery without angina pectoris; Z97.5 Presence of (intrauterine) contraceptive device; Z79.899 Other long term (current) drug therapy; Z79.891 Long term (current) use of opiate analgesic
CPT/HCPCS: 80053; 83735; 84439; 84443; 84703; 85025; 86803; 87389; 87636; 93005; 96360; 99284; 99285; J7120